=== PATIENT | female | born 1940 | race Caucasian/White ===

== ENCOUNTER 2017-05-25 05:53 | Inpatient (IN) | payer MEDICARE, BC ==
--- NOTE | 2017-05-24 09:42 | HP ---
HISTORY OF PRESENT ILLNESS: Ms. Coburn is a 76-year-old female that presents with right buttock mirian n and numbness and tingling that shoots down the right S1 dermatome. She has had this pain for about the past 2 months and has not found anything that gives her relief. Walking and standing makes the pain worse. She has had a right L5-S1 TFESI from Dr. Milton recently that gave no relief. She is also undergoing home health, PT and has had treatments with her chiropractor that has not helped. She has had a history of T10 vertebroplasty with Dr. Milton several years ago. IMAGING: MRI of the lumbar spine at [facility]. REVIEW OF SYSTEMS: Ten-point review of systems completed, is otherwise negative unless stated in the above HPI. PAST MEDICAL HISTORY: Blood clots, heart stent, hysterectomy, carpal tunnel, spleen and gallbladder removal, hypertension, high blood pressure. PAST SURGICAL HISTORY: Hysterectomy, IVC filter in 2015, heart stent. 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 Mother is deceas ed, diagnosed with diabetes, hypertension and heart disease. SOCIAL HISTORY: The patient is a nonsmoker. She does not use alcohol. MEDICATIONS: 1. Metformin 500 mg 1 tablet by mouth 2 times a day. 2. Oxybutynin chloride 5 mg tablet 1 tablet orally twice daily. 3. DuoNeb. 4. Albuterol sulfate HFA 108 mcg/ST aerosol solution 2 puffs as needed inhalation every 4 hours. 5. Klor-Con 10 mEq tablet extended release 1 tablet with food orally twice a day. 6. Lisinopril/hydrochlorothiazide 20/25 mg tablet, take 1 tablet by mouth every day. 7. Hydralazine HCL 25 mg tablet 1 tablet orally once a day. 8. Paxil 20 mg tablet 1 tablet in the morning orally once daily. 9. Restoril 15 mg tablet 1 capsule at bedtime as needed orally once a day. 10. Naproxen 375 mcg tablet 1 tablet orally twice a day p.r.n. 11. Pantoprazole sodium 40 mg tablet delayed release, take 1 tablet by mouth daily. 12. Gabapentin 300 mg capsule 1-2 capsules orally 3 times a day. 13. Prednisone 10 mg capsule 1 capsule orally 1 p.o. q.i.d. for 3 days and then taper over the next 3 days. 14. Zanaflex 4 mg tablet 1 tablet as needed orally 3 times a day p.r.n. for pain. 15. Pramipexole dihydrochloride 0.75 mg tablet 1 tablet before bedtime orally twice a day. 16. [place] 10/325 mg tablet 1 tablet as needed orally q.6 hours as needed for pain. ALLERGIES: BACTRIM causes anaphylaxis allergy. PHYSICAL EXAMINATION: HEENT: Normocephalic, atraumatic. Hearing intact. Moist mucous membranes. Trachea is midline. EYES: Pupils equal and reactive to light. Extraocular muscles are intact. Sclerae is white, nonict connie. PSYCHIATRIC: Normal mood and affect. CARDIAC/CARDIOPULMONARY: No cyanosis or clubbing noted. Intact pedal pulses bilaterally. MUSCULOSKELETAL: Lower extremity, 4/5 strength in bilateral right hamstrings, sensory deficits in th e right S1 dermatome tender to palpation in the right low back and buttocks, positive straight leg ra ise on the right. RESPIRATORY: Even respirations, good effort all lung morgan are clear with no wheezing or crackles. NEUROLOGIC: Cranial nerves II-XII grossly intact. Speech is fluent. She answers my questions appro priately. Antalgic gait and station, walks with a walker because of pain. ASSESSMENT: Radiculopathy lumbosacral region. PLAN: Dr. Childs offered removal of the right L5-S1 synovial cyst that is compressing on the righ t S1 nerve root. We discussed risks, benefits and possible complications of surgery. She fully unde rstands the risks and is willing to proceed with the surgery.
[2017-05-24 09:44] VITALS: BMI 32.9
[2017-05-25] MEDS ORDERED: Sodium Chloride 0.9% 10 ML ONE (06:35)
[2017-05-25] MEDS ORDERED: Bupivacaine 0.5% 10 ML VIAL ONE (06:35)
[2017-05-25] MEDS ORDERED: Thrombin 5000 UNITS/5 ML VIAL ONE (06:35)
[2017-05-25 06:38] LABS: Hemoglobin 11.3 g/dL (12.0-16.0); Mean Corpuscular HGB CONC 31.5 g/dL (32.0-36.0); Mean Corpuscular Hemoglobin 29.4 pg (27.0-31.0); Mean Corpuscular Volume 93.3 fl (81.0-99.0); Platelet Count 497 thou/uL (130-400); RBC Distribution Width 15.7 % (11.5-14.5); Red Blood Cell (RBC) Count 3.86 mill/uL (4.20-5.40); White Blood Cell (WBC) Count 15.9 thou/uL (4.8-10.8)
[2017-05-25 06:42] LABS: Prothrombin Time 12.8 SEC (12.0-14.7)
[2017-05-25] MEDS ORDERED: CEFAZOLIN/Water 2 GM/20 ML SYRINGE ONE (06:43)
[2017-05-25] MEDS ORDERED: Fentanyl 100 MCG/2 ML VIAL ONE ×3 (06:49→10:13)
[2017-05-25 06:52] LABS: Eosinophils 2 % (0-10); Lymphocytes 49 % (21-51); MDiff Complete? YES; Monocytes 10 % (0-10); Neutrophil 38 % (42-75); PLT Morphology Comment Appears Increased
[2017-05-25 06:58] LABS: Anion Gap 16 mmol/L (10-20); BUN (Urea Nitrogen) 36 mg/dL (9.8-20.1); Calc. Creatinine Clearance 43 mL/min (70-130); Calcium 10.2 mg/dL (7.8-10.44); Carbon Dioxide 26 mmol/L (23-31); Chloride 105 mmol/L (98-107); Estimated GFR-MDRD 36; Glucose 99 mg/dL (83-110); Potassium 3.7 mmol/L (3.5-5.1); Sodium 143 mmol/L (136-145)
--- NOTE | 2017-05-25 10:19 | OP ---
DATE OF PROCEDURE: 05/25/2017 SURGEON: Marc Childs SERVICE DELIVERY MANAGER: Wilber Huffman PA-C. PREOPERATIVE INDICATION: Treat pain, prevent neurological deterioration. PREOPERATIVE DIAGNOSIS: Right-sided L5-S1 synovial cyst with S1 radiculopathy. POSTOPERATIVE DIAGNOSIS: Right-sided L5-S1 synovial cyst with S1 radiculopathy. OPERATIVE PROCEDURE: Laminectomy, medial facetectomy, foraminotomy L5-S1, microsurgical resection of synovial cyst. PREOPERATIVE MEDICATION: Ancef 2 grams IV. DRAIN NUMBER: Zero. DRAIN TYPE: None. OPERATIVE DICTATION: The patient was brought to the operating room. General endotracheal anesthesia was induced. The patient was positioned prone on the operating table with her chest and hips suppor fish by gel-filled chest rolls. A lateral fluoro radiograph was used to plan our incision. The lumba r skin was sterilely prepped and draped. We opened our planned incision with a 10 blade knife and co ntrolled bleeding with bipolar and monopolar cautery. We used monopolar cautery to dissect through t he subcutaneous tissues to the thoracodorsal fascia. We incised the fascia in the midline and reflec fish the paraspinal muscles off the spinous process and lamina of L5 and S1. A self-retaining retract or was placed and a lateral fluoro radiograph confirmed the level upon, which we were operating. We then used Adson rongeurs to remove the spinous process of L5 and S1 and [place]ison rongeurs to fashion laminectomy, we widened our laminectomy defect until we were flushed with the pedicles. We performed S1 laminectomy until we were inferior to the synovial cyst, which we could see in the epidural space . We continued right-sided laminectomy of L5 until we were superior to it. We brought the operating microscope into the field. Under microscopic magnification using microsurgical techniques, we carefully dissected around the syn ovial cyst. We carefully from the dura and we left the dura intact and the removal of the cyst decompressed the S1 nerve root quite nicely. We irrigated copiously with bacitracin irrigation. The synovial cyst was sent to pathology. We infused local anesthetic in the paraspinal muscles and we closed the wound in anatomic layers. We applied a sterile dressing. This was a clean case and n o contamination.
[2017-05-25] MEDS ORDERED: Cyclobenzaprine 10 MG TAB ONE (11:15)
[2017-05-25] MEDS ORDERED: Acetaminophen/Codeine 30-300mg Tablet ONE (12:48)
[2017-05-25] MEDS ORDERED: HYDROcodone/Acetaminophen 5/325 mg Tablet PO PRN (15:58)
[2017-05-25] MEDS ORDERED: Ondansetron ODT 4 MG TAB PO PRN (16:03)
[2017-05-25] MEDS ORDERED: Acetaminophen/Codeine 30-300mg Tablet PO PRN ×2 (16:03→16:04)
[2017-05-25] MEDS ORDERED: Cyclobenzaprine 10 MG TAB PO PRN (16:04)
[2017-05-25] MEDS ORDERED: Morphine 5 MG/ML SYRINGE SLOW IVP PRN (16:04)
[2017-05-25] MEDS ORDERED: Glycopyrrolate 0.2 MG/ML 5 ML SYRINGE ONE (16:36)
[2017-05-25] MEDS ORDERED: Dexamethasone 20 MG/5 ML VIAL ONE (16:36)
[2017-05-25] MEDS ORDERED: Lidocaine 1% PF 5 ML VIAL ONE (16:36)
[2017-05-25] MEDS ORDERED: Ondansetron HCl/PF 4 MG/2 ML Vial ONE (16:36)
[2017-05-25] MEDS ORDERED: PHENYLEPHRINE-NS 100 MCG/ML 10 ML SYRINGE ONE (16:36)
[2017-05-25] MEDS ORDERED: ePHEDrine/0.9% NaCl/PF SYRINGE 50 mg/10 ml ONE (16:36)
[2017-05-25] MEDS ORDERED: PROPOFOL 200 MG/20 ML VIAL ONE (16:36)
[2017-05-25] MEDS: metFORMIN 500 MG TAB PO SCH (17:11)
[2017-05-25] MEDS ORDERED: Temazepam 15 MG CAP PO SCH (21:00)
[2017-05-25] MEDS: Pramipexole Di-HCl 0.25 MG TAB PO SCH (21:02)
[2017-05-25] MEDS: hydrALAZINE 25 MG TAB PO SCH (21:02)
[2017-05-25] MEDS ORDERED: Morphine 4 MG/ML Carpuject SLOW IVP PRN (21:25)
[2017-05-26] MEDS ORDERED: predniSONE 20 MG TAB PO SCH (09:00)
[2017-05-26] MEDS ORDERED: Lisinopril 20 MG TAB PO SCH (09:00)
[2017-05-26] MEDS ORDERED: tiZANidine HCl 4 MG TAB PO SCH (09:00)
[2017-05-26] MEDS: Pramipexole Di-HCl 0.25 MG TAB PO SCH (09:29)
[2017-05-26] MEDS: hydrALAZINE 25 MG TAB PO SCH (09:30)
[2017-05-26] MEDS: metFORMIN 500 MG TAB PO SCH (09:30)
--- NOTE | 2017-05-26 11:21 | DIS ---
Ms. Coburn is a 76-year-old woman who was admitted to [facility] on 05/25/[address] Aileen Childs in the postoperative period following a lumbar laminectomy and synovial cystectomy, and e was discharged with a subsequent on 05/26/2017. Hospital course was uncomplicated. There were no consultations ordered and pain was well controlled with typical measures. She was ultimately dischar [facility] in good condition with outpatient followup anticipated in 2 weeks.
[2017-05-26 13:21] VITALS: BP 118/62; TEMP 97.4
--- NOTE | 2017-07-29 08:32 | EKG ---
Test Reason : PREOP Blood Pressure : / mmHG Vent. Rate : 079 BPM Atrial Rate : 079 BPM P-R Int : 170 ms QRS Dur : 094 ms QT Int : 396 ms P-R-T Axes : 038 -62 058 degrees QTc Int : 454 ms Normal sinus rhythm Left anterior fascicular block Possible Lateral infarct , age undetermined Abnormal ECG Confirmed by VANIA LOWE MD ([id number]) on 07/29/2017 8:31:42 AM Referred By: ANTHONY Confirmed By:VANIA LOWE MD
== END 2017-05-26 16:00 | disposition home health service (06) | DRG 520 ==
LOC: SURG A 05:53 → SURG B 14:51
PROVIDERS: ADMIT Neurological Surgery; ATTEND Neurological Surgery
PROC: 0QB00ZZ Excision of Lumbar Vertebra, Open Approach (ICD-10-PCS; principal; 2017-05-25)
PROC: 00BY0ZZ Excision of Lumbar Spinal Cord, Open Approach (ICD-10-PCS; 2017-05-25)
DX: M71.38 Other bursal cyst, other site (principal); I10 Essential (primary) hypertension; Z95.5 Presence of coronary angioplasty implant and graft; Z95.828 Presence of other vascular implants and grafts; Z79.84 Long term (current) use of oral hypoglycemic drugs; Z79.891 Long term (current) use of opiate analgesic; Z88.2 Allergy status to sulfonamides; M54.17 Radiculopathy, lumbosacral region; Z86.718 Personal history of other venous thrombosis and embolism
CPT/HCPCS: 36415; 76001; 80048; 85025; 85610; 85730; 88304; 88311; 93005; 93010; 96374; J2270; A4216; J1100; J2001; J2405; J2704; J2710; J3010; J3370; J3490; J7506

== ENCOUNTER 2017-09-10 13:20 | Outpatient (CLI) | payer MEDICARE, BC ==
[2017-09-10 15:30] LABS: Hemoglobin 12.8 g/dL (12.0-16.0); Mean Corpuscular HGB CONC 32.7 g/dL (32.0-36.0); Mean Corpuscular Hemoglobin 29.1 pg (27.0-31.0); Mean Corpuscular Volume 89.1 fl (81.0-99.0); Mean Platelet Volume 8.7 fL (7.4-10.4); Platelet Count 517 thou/uL (130-400); Red Blood Cell (RBC) Count 4.41 mill/uL (4.20-5.40); White Blood Cell (WBC) Count 12.6 thou/uL (4.8-10.8)
[2017-09-10 15:36] LABS: INR-International Normal Ratio 1.1; PTT 33.4 SEC (22.9-36.1); Prothrombin Time 14.3 SEC (12.0-14.7)
[2017-09-10 15:52] LABS: Anion Gap 18 mmol/L (10-20); BUN (Urea Nitrogen) 32 mg/dL (9.8-20.1); Calc. Creatinine Clearance 0 mL/min (70-130); Carbon Dioxide 25 mmol/L (23-31); Chloride 97 mmol/L (98-107); Estimated GFR-MDRD 20; Glucose 108 mg/dL (83-110); Potassium 3.7 mmol/L (3.5-5.1); Sodium 136 mmol/L (136-145)
[2017-09-10 15:55] LABS: Calcium 12.6 mg/dL (7.8-10.44)
[2017-09-10 16:18] LABS: Anisocytosis SLIGHT = 6-15 cells (100X) (0-5/hpf); Band 2 % (5-11); Eosinophils 1 % (0-10); Giant Platelets SLIGHT; Large Platelets SLIGHT; Lymphocytes 32 % (21-51); MDiff Complete? YES; Monocytes 4 % (0-10); Neutrophil 57 % (42-75); PLT Morphology Comment Appears Increased; Target Cells SLIGHT = 2-5 cells (100X) (0-1/hpf)
--- NOTE | 2017-09-10 16:38 | RAD ---
CHEST TWO VIEWS: 09/10/2017 HISTORY: Preoperative chest radiograph. COMPARISON: 05/11/2014 TECHNIQUE: PA and lateral views of the chest are obtained. FINDINGS: Two views of the chest demonstrate a right shoulder arthroplasty. Mid and lower thoracic vertebropla sty are seen. There is an inferior vena cava filter in place. No evidence of acute intrathoracic abnormalities seen. Osteoporosis of the thoracic spine is also se en. 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 No evidence of acute intrathoracic abnormal ity is seen. POS: [facility]
[2017-09-10 16:51] LABS: Bilirubin Negative (Negative); Blood, Urine Negative (Negative); Clarity CLEAR (Clear); Glucose, Urine (Dipstick) Negative (Negative); Leukocyte Small (Negative); Nitrite Negative (Negative); Protein, Urine (Dipstick) Trace mg/dL (Neg-Trace); Specific Gravity, Urine 1.013 (1.002-1.036); Urobilinogen 0.2 mg/dL (0.2-1.0)
[2017-09-10 16:53] LABS: Bacteria/HPF None Seen HPF (None Seen); Hyaline Casts/LPF 0-3 HYALINE CAST LPF (0-3 Hyaline); Pathc Cast-AUWi Flag 0.29 (0-2.49); RBC/HPF 0-3 HPF (0-3); Squamous Epithelial 0-3 HPF (0-3)
== END 2017-09-10 13:21 | disposition home or self-care (01) ==
LOC: LABBT 13:20
PROVIDERS: ATTEND Orthopaedic Surgery
DX: Z01.818 Encounter for other preprocedural examination (principal); M12.812 Other specific arthropathies, not elsewhere classified, left shoulder
CPT/HCPCS: 71046; 80048; 81001; 85025; 85610; 85730; 86850; 86900; 86901; 87081; 93005; 93010

== ENCOUNTER 2017-09-10 13:30 | Inpatient (IN) | payer MEDICARE, BC ==
[2017-09-13] MEDS ORDERED: Fentanyl 100 MCG/2 ML VIAL ONE ×2 (07:42→11:12)
[2017-09-13] MEDS ORDERED: Midazolam HCl 2 mg/2 ml Vial ONE (07:42)
[2017-09-13] MEDS ORDERED: CEFAZOLIN/Water 2 GM/20 ML SYRINGE ONE (07:47)
[2017-09-13] MEDS ORDERED: Sodium Chloride 0.9% 100 ML ONE (07:47)
[2017-09-13] MEDS ORDERED: Ondansetron HCl/PF 4 MG/2 ML Vial IVP PRN ×2 (08:27→10:58)
[2017-09-13] MEDS ORDERED: traMADol HCl 50 MG TAB PO PRN ×3 (08:27→08:55)
[2017-09-13] MEDS ORDERED: Ropivacaine 0.2% 550 ML 550 ML NERVE BLCK SCH (08:27)
[2017-09-13] MEDS ORDERED: Zolpidem Tartrate 5 MG TAB PO PRN (08:27)
[2017-09-13] MEDS ORDERED: Promethazine HCl 25 MG/ML VIAL IM PRN ×2 (08:27→10:58)
[2017-09-13] MEDS ORDERED: HYDROcodone/Acetaminophen 5/325 mg Tablet PO PRN (08:27)
[2017-09-13] MEDS ORDERED: Fentanyl 100 MCG/2 ML VIAL IV PRN (08:28)
[2017-09-13] MEDS ORDERED: HYDROcodone/Acetaminophen 10/325 mg Tablet PO PRN ×2 (08:55)
[2017-09-13] MEDS ORDERED: Cyclobenzaprine 10 MG TAB PO PRN (08:57)
[2017-09-13] MEDS ORDERED: Promethazine HCl 25 MG/ML VIAL SLOW IVP PRN (10:58)
[2017-09-13] MEDS ORDERED: Ondansetron HCl/PF 4 MG/2 ML Vial ONE ×2 (11:12→15:05)
[2017-09-13] MEDS ORDERED: Promethazine HCl 25 MG/ML VIAL ONE (11:13)
--- NOTE | 2017-09-13 11:41 | RAD ---
LEFT SHOULDER 2 VIEWS: Date: 09/13/17 HISTORY: Reverse total shoulder arthroplasty. COMPARISON: None. FINDINGS: Satisfactory appearance of left reverse total shoulder arthroplasty. Expected postoperative gas and e boogie. There are some congestive changes in the lung bases. IMPRESSION: Satisfactory appearance of left reverse total shoulder arthroplasty. POS: [facility]
--- NOTE | 2017-09-13 11:44 | OP ---
PREOPERATIVE DIAGNOSIS: Degenerative arthritis, presumed rotator cuff tear of left shoulder with bic eps tendonitis. POSTOPERATIVE DIAGNOSES: Degenerative arthritis, presumed rotator cuff tear of left shoulder with bi ceps tendonitis with partial rotator cuff tear and attenuation of the rotator cuff, biceps tendonitis . PROCEDURE: Left reverse total shoulder arthroplasty and biceps tenodesis using a 25 mm baseplate wit h a 36 mm sphere, 4B long Flex stem, +6 low offset tray and 6 mm poly. RN ANESTHETIST: Rowdy Cantu PA-C BLOOD LOSS: 100 mL. SPECIMEN: None. DRAINS: None. COMPLICATIONS: None. NARRATIVE REPORT: After appropriate consent was obtained, the patient was placed in the beach chair position with a roll under the left shoulder. The left shoulder was prepped and draped in the usual sterile fashion. I made a standard deltopectoral approach. Cephalic vein was taken medially and pre served, branches were coagulated. The deltopectoral interval was opened. The biceps tendon was iden tified. The tendon was frayed and in poor condition. I removed the biceps from the groove and tagge d it for later repair. It was eventually tagged to soft tissues using #5 Ethibond suture. The subsc apularis was taken down. Bone spurs were removed. Subscapularis was tacked for later repair. Using the Tornier guide, a standard cut was performed. I then exposed the glenoid circumferentially. I d rilled a central hole and reamed the glenoid. The glenoid baseplate was deployed without difficulty and screws were inserted in the usual technique. Glenosphere was docked without difficulty after irr igation. Attention was turned to the humerus, which was opened with an acetabular and a shaft reamer to the appropriate size. Trial implant was placed and a trial reduction was performed. Trials were removed and irrigation performed. I placed drill holes through the lesser tuberosity to repair the subscapularis. Permanent implant was impacted into place. The shoulder was reduced and confirmed to have good stability throughout a range of motion. Subscapularis was tacked down with a cottony Dacr on suture. Additional irrigation was performed. The deltopectoral interval was repaired with #2-0 V icryl and subcutaneous tissue closed with 2-0 Vicryl. The skin was closed with ronaldo and a sterile dressing was applied. IMPLANTS USED: Tornier 12 mm stem with a 9 mm polyethylene bushing and a standard baseplate and 36 g lenosphere.
[2017-09-13] MEDS: Dextrose 5 %-0.45 % NaCl 1,000 ML IV SCH (13:13)
[2017-09-13] MEDS: Clindamycin/D5W 900 MG in Premix Bag 1 BAG IVPB SCH ×2 (13:13→16:57)
[2017-09-13] MEDS ORDERED: Ropivacaine 0.5% HCl/PF (150 MG/30 ML VIAL) ONE (14:18)
[2017-09-13] MEDS ORDERED: Ropivacaine 0.2% HCl/PF (40 MG/20 ML VIAL) ONE (14:18)
[2017-09-13 14:33] VITALS: BMI 28.5
[2017-09-13] MEDS ORDERED: Glycopyrrolate 0.2 MG/ML 5 ML SYRINGE ONE (15:05)
[2017-09-13] MEDS ORDERED: Lidocaine 1% PF 5 ML VIAL ONE (15:05)
[2017-09-13] MEDS ORDERED: PHENYLEPHRINE-NS 100 MCG/ML 10 ML SYRINGE ONE (15:05)
[2017-09-13] MEDS ORDERED: ePHEDrine/0.9% NaCl/PF SYRINGE 50 mg/10 ml ONE (15:05)
[2017-09-13] MEDS ORDERED: PROPOFOL 200 MG/20 ML VIAL ONE (15:05)
--- NOTE | 2017-09-13 16:21 | PDOC.PN ---
- Subjective Encounter Start Date: 09/13/17 Encounter Start Time: 16:00 Subjective: no c/o sob or palp -: left UE is still numb - Objective MAR Reviewed: Yes Vital Signs & Weight: Vital Signs (12 hours) Pulse BP Pulse Ox 09/13/17 14:48 74 116/62 86 L Weight Weight 156 lb 4.8 oz Phys Exam - Physical Examination HEENT: PERRLA, moist MMs Neck: no JVD, supple Respiratory: no wheezing, no rales Cardiovascular: RRR, no significant murmur Gastrointestinal: soft, non-tender, positive bowel sounds Musculoskeletal: no edema, pulses present Neurological: non-focal, moves all 4 limbs Psychiatric: A&O x 3 Dx/Plan (1) Anxiety and depression Code(s): F41.9 - ANXIETY DISORDER, UNSPECIFIED; F32.9 - MAJOR DEPRESSIVE DISORDER, SINGLE EPISODE, UNSPECIFIED Status: Chronic (2) Diabetes type 2, controlled Code(s): E11.9 - TYPE 2 DIABETES MELLITUS WITHOUT COMPLICATIONS Status: Chronic Qualifiers: 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 use: without detention use Diabetes mellitus complication status: with unspecified complications Qualified Code(s) : E11.8 - Type 2 diabetes mellitus with unspecified complications Comment: ISS for reflexive coverage, hold Metformin due to JOSE ALFREDO (3) Dyslipidemia Code(s): E78.5 - HYPERLIPIDEMIA, UNSPECIFIED Status: Chronic (4) Hypertension Code(s): I10 - ESSENTIAL (PRIMARY) HYPERTENSION Status: Chronic Qualifiers: Hypertension type: essential hypertension Qualified Code(s): I10 - Essential (primary) hypertension (5) Sarcoidosis Code(s): D86.9 - SARCOIDOSIS, UNSPECIFIED Status: Chronic - Plan cxr today, spo2 around 80-96% over left UE finger, likely not accurate -: continue lisinopril, hydralazine and metformin with coverage mild humalog -: nebs prn, nasal canula 2 liter prn -: i.spirometer -: will f/u * . Review of Systems - Medications/Allergies Allergies/Adverse Reactions: Allergies Allergy/AdvReac Type Severity Reaction Status Date / Time Sulfa (Sulfonamide Allergy Verified 05/29/16 02:42 Antibiotics) sulfamethoxazole Allergy Verified 05/29/16 02:42 [From Bactrim] trimethoprim [From Bactrim] Allergy Verified 02/20/17 02:42 Medications: Current Medications Hydrocodone Bitart/Acetaminophen ([place] 5/325) 1 tab PO Q4H PRN PRN Reason: Mild Pain (1-3) Hydrocodone Bitart/Acetaminophen ([place] 5/325) 2 tab PO Q4H PRN PRN Reason: For Moderate Pain 4-6 Cyclobenzaprine HCl (Flexeril) 10 mg PO Q8HR PRN PRN Reason: spasms Fentanyl (Sublimaze) 50 mcg IV Q1H PRN PRN Reason: BREAKTHROUGH PAIN Hydralazine HCl (Apresoline) 25 mg PO BID [facility] Ropivacaine (Ropivacaine 0.2% 550 Ml) 550 mls @ 0 mls/hr NERVE BLCK INF DENY PRN Reason: As Directed Clindamycin Phosphate/Dextrose (900 mg/ Device) 50 mls @ 100 mls/hr IVPB Q6HR [facility] Stop: 09/13/17 18:29 Last Admin: 09/13/17 13:13 Dose: 50 mls Dextrose/Sodium Chloride (D5 1/2 Ns) 1,000 mls @ 65 mls/hr IV .[id number] [facility] Last Admin: 09/13/17 13:13 Dose: 1,000 mls Vancomycin HCl 1 gm/ Device 200 mls @ 200 mls/hr IVPB 2000 [facility] Stop: 09/13/17 20:59 Lisinopril (Zestril) 25 mg PO QAM [facility] Lisinopril (Zestril) 25 mg PO NOW [facility] Stop: 09/13/17 18:30 Meloxicam (Mobic) 15 mg PO DAILY [facility] Meloxicam (Mobic) 15 mg PO NOW [facility] Stop: 09/13/17 18:30 Metformin HCl (Glucophage) 500 mg PO BID[facility] Ondansetron HCl (Zofran) 4 mg IVP Q6H PRN PRN Reason: Nausea/Vomiting Pantoprazole Sodium (Protonix) 40 mg PO QAM [facility] Pantoprazole Sodium (Protonix) 40 mg PO NOW [facility] Stop: 09/13/17 18:30 Paroxetine HCl (Paxil Cr) 25 mg PO QPM [facility] Pramipexole Dihydrochloride (Mirapex) 0.75 mg PO DAILY [facility] Pramipexole Dihydrochloride (Mirapex) 0.75 mg PO NOW [facility] Stop: 09/13/17 18:30 Promethazine HCl (Phenergan) 12.5 mg IM Q4H PRN PRN Reason: Nausea Sodium Chloride (Flush - Normal Saline) 10 ml IVF Q12HR DENY Sodium Chloride (Flush - Normal Saline) 10 ml IVF PRN PRN PRN Reason: Saline Flush Temazepam (Restoril) 15 mg PO HS DENY Tramadol HCl (Ultram) 50 mg PO Q6H PRN PRN Reason: Mild Pain (1-3) Tramadol HCl (Ultram) 100 mg PO Q6H PRN PRN Reason: Moderate Pain (4-6) Zolpidem Tartrate (Ambien) 5 mg PO HSPRN PRN PRN Reason: Insomnia
[2017-09-13] MEDS ORDERED: Lisinopril 20 MG TAB PO SCH (16:30)
[2017-09-13] MEDS ORDERED: Meloxicam 15 MG TAB PO SCH (16:30)
[2017-09-13] MEDS ORDERED: Pramipexole Di-HCl 0.25 MG TAB PO SCH (16:30)
[2017-09-13] MEDS: metFORMIN 500 MG TAB PO SCH (16:56)
[2017-09-13] MEDS: Pramipexole Di-HCl 0.25 MG TAB PO SCH (16:57)
[2017-09-13] MEDS: Meloxicam 15 MG TAB PO SCH (16:58)
[2017-09-13] MEDS: Lisinopril 20 MG TAB PO SCH (16:58)
[2017-09-13] MEDS: hydrALAZINE 25 MG TAB PO SCH ×2 (16:58→20:04)
--- NOTE | 2017-09-13 18:37 | RAD ---
ONE VIEW CHEST 09/13/17 HISTORY: Hypoxia. Sarcoidosis. COMPARISON: 06/02/16 FINDINGS: There are surgical clips projecting over the proximal left humerus. Correlate for recent arthroplasty . Enlarged cardiac silhouette. Pulmonary vessels are normal. Persistent fullness in the right hilum. Sm all left sided pleural effusion with adjacent parenchymal change which may represent atelectasis or i nfiltrate. No pneumothorax. There is evidence of previous vertebroplasty change in the thoracic spine . IMPRESSION: 1. Left lower lobe pleural effusion with possible atelectasis or infiltrate. 2. Persistent fullness of the right hilum. 3. Recent left hemiarthroplasty change. POS: [facility]
[2017-09-13] MEDS ORDERED: Vancomycin HCl 1 GM in Premix Bag 1 BAG IVPB SCH (20:00)
[2017-09-13] MEDS: Temazepam 15 MG CAP PO SCH (20:01)
[2017-09-13] MEDS: traMADol HCl 50 MG TAB PO PRN (20:01)
[2017-09-14] MEDS: HYDROcodone/Acetaminophen 5/325 mg Tablet PO PRN ×4 (00:57→17:44)
[2017-09-14] MEDS: Dextrose 5 %-0.45 % NaCl 1,000 ML IV SCH ×2 (03:09→16:53)
[2017-09-14] MEDS: traMADol HCl 50 MG TAB PO PRN ×2 (03:13→08:49)
[2017-09-14 07:47] LABS: Hemoglobin 9.8 g/dL (12.0-16.0); Mean Corpuscular HGB CONC 33.2 g/dL (32.0-36.0); Mean Corpuscular Hemoglobin 29.4 pg (27.0-31.0); Mean Corpuscular Volume 88.6 fl (81.0-99.0); Mean Platelet Volume 7.8 fL (7.4-10.4); Platelet Count 403 thou/uL (130-400); RBC Distribution Width 14.8 % (11.5-14.5); Red Blood Cell (RBC) Count 3.34 mill/uL (4.20-5.40)
[2017-09-14 08:12] LABS: ALT (SGPT) Less than 7 U/L (8-55); AST (SGOT) 14 U/L (5-34); Albumin 3.2 g/dL (3.4-4.8); Alkaline Phosphatase 78 U/L (40-150); Anion Gap 11 mmol/L (10-20); BUN (Urea Nitrogen) 27 mg/dL (9.8-20.1); Bilirubin, Total 0.5 mg/dL (0.2-1.2); Calc. Creatinine Clearance 28 mL/min (70-130); Calcium 10.2 mg/dL (7.8-10.44); Carbon Dioxide 26 mmol/L (23-31); Chloride 101 mmol/L (98-107); Estimated GFR-MDRD 26; Globulin 2.9 g/dL (2.4-3.5); Glucose 111 mg/dL (83-110); Potassium 3.4 mmol/L (3.5-5.1); Protein, Total 6.1 g/dL (6.0-8.3); Sodium 135 mmol/L (136-145)
[2017-09-14] MEDS: Meloxicam 15 MG TAB PO SCH (08:47)
[2017-09-14] MEDS: Lisinopril 20 MG TAB PO SCH (08:48)
[2017-09-14] MEDS: Pramipexole Di-HCl 0.25 MG TAB PO SCH (08:48)
[2017-09-14] MEDS: metFORMIN 500 MG TAB PO SCH ×2 (08:48→17:44)
[2017-09-14] MEDS: hydrALAZINE 25 MG TAB PO SCH ×2 (08:49→21:22)
[2017-09-14 08:55] LABS: Band 1 % (5-11); Eosinophils 5 % (0-10); Hypochromia SLIGHT = 6-15 cells (100X) (0-5/hpf); Lymphocytes 19 % (21-51); MDiff Complete? YES; Monocytes 13 % (0-10); Neutrophil 51 % (42-75); PLT Morphology Comment Appears Increased; Polychromasia SLIGHT = 2-3 cells (100X) (0-2/hpf); Reactive Lymphocytes 11 % (0-10)
--- NOTE | 2017-09-14 10:47 | PDOC.PN ---
- Subjective Encounter Start Date: 09/14/17 Encounter Start Time: 07:15 Subjective: mild pain at operated site -: no chest pain, cough or sob - Objective MAR Reviewed: Yes Vital Signs & Weight: Vital Signs (12 hours) Temp Pulse Resp BP BP Pulse Ox 09/14/17 08:49 90 111/65 09/14/17 08:48 111/65 09/14/17 08:40 98.3 F 90 14 94 L 09/14/17 08:00 98.3 F 90 14 111/65 94 L 09/14/17 06:35 92 16 96 09/14/17 03:31 98.2 F 92 20 120/51 L 96 09/13/17 23:10 97.9 F 86 17 128/70 92 L Weight Weight 156 lb 4.8 oz I&O: 09/13/17 09/14/17 09/15/17 06:59 06:59 06:59 Intake Total 920 Balance 920 Result Diagrams: 09/14/17 07:18 09/14/17 07:18 Phys Exam - Physical Examination HEENT: PERRLA, sclera anicteric dry mucosa Neck: no JVD, supple Respiratory: no wheezing, no rales Cardiovascular: RRR, no significant murmur Gastrointestinal: soft, non-tender, positive bowel sounds Musculoskeletal: no edema, pulses present left shoulder in dressing Neurological: non-focal, moves all 4 limbs Psychiatric: A&O x 3 Dx/Plan (1) Diabetes type 2, controlled Code(s): E11.9 - TYPE 2 DIABETES MELLITUS WITHOUT COMPLICATIONS Status: Chronic Qualifiers: 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: without residential use Diabetes mellitus complication status: with unspecified complications Qualified Code(s) : E11.8 - Type 2 diabetes mellitus with unspecified complications (2) Anxiety and depression Code(s): F41.9 - ANXIETY DISORDER, UNSPECIFIED; F32.9 - MAJOR DEPRESSIVE DISORDER, SINGLE EPISODE, UNSPECIFIED Status: Chronic (3) Dyslipidemia Code(s): E78.5 - HYPERLIPIDEMIA, UNSPECIFIED Status: Chronic (4) Hypertension Code(s): I10 - ESSENTIAL (PRIMARY) HYPERTENSION Status: Chronic Qualifiers: Hypertension type: essential hypertension Qualified Code(s): I10 - Essential (primary) hypertension (5) Sarcoidosis Code(s): D86.9 - SARCOIDOSIS, UNSPECIFIED Status: Chronic (6) CKD (chronic kidney disease) stage 3, GFR 30-59 ml/min Code(s): N18.3 - CHRONIC KIDNEY DISEASE, STAGE 3 (MODERATE) Status: Chronic - Plan encourage po intake plus iv hydration x 24hrs -: to amb as tolerated -: hold lisinopril for now, continue metformin -: nebs, fentanyl, norco prn, ropivacaine nerve block -: will f/u, wbc is 16 likely margination, watch for renal function * . Review of Systems - Medications/Allergies Allergies/Adverse Reactions: Allergies Allergy/AdvReac Type Severity Reaction Status Date / Time Sulfa (Sulfonamide Allergy Verified 05/29/16 02:42 Antibiotics) sulfamethoxazole Allergy Verified 05/29/16 02:42 [From Bactrim] trimethoprim [From Bactrim] Allergy Verified 05/29/16 02:42 Medications: Current Medications Hydrocodone Bitart/Acetaminophen ([place] 5/325) 1 tab PO Q4H PRN PRN Reason: Mild Pain (1-3) Last Admin: 09/13/17 16:55 Dose: 1 tab Hydrocodone Bitart/Acetaminophen ([place] 5/325) 2 tab PO Q4H PRN PRN Reason: For Moderate Pain 4-6 Last Admin: 09/14/17 05:28 Dose: 2 tab Albuterol/Ipratropium (Duoneb) 3 ml NEB [id number] [facility] Last Admin: 09/14/17 06:35 Dose: 3 ml Cyclobenzaprine HCl (Flexeril) 10 mg PO Q8HR PRN PRN Reason: spasms Fentanyl (Sublimaze) 50 mcg IV Q1H PRN PRN Reason: BREAKTHROUGH PAIN Hydralazine HCl (Apresoline) 25 mg PO BID [facility] Last Admin: 09/14/17 08:49 Dose: 25 mg Ropivacaine (Ropivacaine 0.2% 550 Ml) 550 mls @ 0 mls/hr NERVE BLCK INF DENY PRN Reason: As Directed Dextrose/Sodium Chloride (D5 1/2 Ns) 1,000 mls @ 65 mls/hr IV .[id number] [facility] Last Admin: 09/14/17 03:09 Dose: Not Given Metformin HCl (Glucophage) 500 mg PO BID[facility] Last Admin: 09/14/17 08:48 Dose: 500 mg Ondansetron HCl (Zofran) 4 mg IVP Q6H PRN PRN Reason: Nausea/Vomiting Pantoprazole Sodium (Protonix) 40 mg PO QAM [facility] Last Admin: 09/14/17 08:48 Dose: 40 mg Paroxetine HCl (Paxil Cr) 25 mg PO QPM [facility] Pramipexole Dihydrochloride (Mirapex) 0.75 mg PO DAILY [facility] Last Admin: 09/14/17 08:48 Dose: 0.75 mg Promethazine HCl (Phenergan) 12.5 mg IM Q4H PRN PRN Reason: Nausea Sodium Chloride (Flush - Normal Saline) 10 ml IVF Q12HR [facility] Last Admin: 09/14/17 08:53 Dose: Not Given Sodium Chloride (Flush - Normal Saline) 10 ml IVF PRN PRN PRN Reason: Saline Flush Temazepam (Restoril) 15 mg PO HS [facility] Last Admin: 09/13/17 20:01 Dose: 15 mg Tramadol HCl (Ultram) 50 mg PO Q6H PRN PRN Reason: Mild Pain (1-3) Tramadol HCl (Ultram) 100 mg PO Q6H PRN PRN Reason: Moderate Pain (4-6) Last Admin: 09/14/17 08:49 Dose: 100 mg Zolpidem Tartrate (Ambien) 5 mg PO HSPRN PRN PRN Reason: Insomnia Last Admin: 09/13/17 20:44 Dose: 5 mg
[2017-09-14] MEDS ORDERED: PARoxetine CR 12.5 MG TAB PO SCH (21:00)
[2017-09-14] MEDS: Temazepam 15 MG CAP PO SCH (21:22)
[2017-09-15] MEDS: HYDROcodone/Acetaminophen 5/325 mg Tablet PO PRN ×2 (03:50→10:08)
[2017-09-15] MEDS: Dextrose 5 %-0.45 % NaCl 1,000 ML IV SCH (06:20)
[2017-09-15 08:27] LABS: #Basophils 0.2 thou/uL (0.0-0.2); #Lymphocytes 4.2 thou/uL (1.20-3.40); #Monocytes 1.6 thou/uL (0.11-0.59); #Neutrophils 7.8 thou/uL (1.40-6.50); %Basophils 1.1 % (0.0-1.0); %Eosinophils 6.7 % (0.0-10.0); %Lymphocytes 28.6 % (21.0-51.0); %Monocytes 10.6 % (0.0-10.0); %Neutrophils 53.1 % (42.0-75.0); Hemoglobin 10.1 g/dL (12.0-16.0); Mean Corpuscular HGB CONC 33.3 g/dL (32.0-36.0); Mean Corpuscular Hemoglobin 29.9 pg (27.0-31.0); Mean Corpuscular Volume 89.7 fl (81.0-99.0); Mean Platelet Volume 7.9 fL (7.4-10.4); Platelet Count 403 thou/uL (130-400); Red Blood Cell (RBC) Count 3.37 mill/uL (4.20-5.40); White Blood Cell (WBC) Count 14.7 thou/uL (4.8-10.8)
[2017-09-15] MEDS: Pramipexole Di-HCl 0.25 MG TAB PO SCH (08:30)
[2017-09-15] MEDS: metFORMIN 500 MG TAB PO SCH (08:30)
[2017-09-15] MEDS: hydrALAZINE 25 MG TAB PO SCH (08:30)
[2017-09-15] MEDS: traMADol HCl 50 MG TAB PO PRN (08:31)
[2017-09-15 08:43] LABS: Anion Gap 12 mmol/L (10-20); BUN (Urea Nitrogen) 26 mg/dL (9.8-20.1); Calc. Creatinine Clearance 29 mL/min (70-130); Calcium 10.2 mg/dL (7.8-10.44); Carbon Dioxide 25 mmol/L (23-31); Chloride 102 mmol/L (98-107); Estimated GFR-MDRD 27; Glucose 92 mg/dL (83-110); Potassium 3.5 mmol/L (3.5-5.1); Sodium 135 mmol/L (136-145)
[2017-09-15] MEDS ORDERED: Aspirin 81 mg Enteric Coated Tablet PO SCH (09:00)
--- NOTE | 2017-09-15 10:53 | PDOC.PN ---
- Subjective Encounter Start Date: 09/15/17 Encounter Start Time: 08:00 Subjective: no sob, is amb in hallway -: left shoulder pain is better this am - Objective MAR Reviewed: Yes Vital Signs & Weight: Vital Signs (12 hours) Temp Pulse Resp BP Pulse Ox 09/15/17 08:30 85 09/15/17 07:48 98.2 F 85 20 134/76 94 L 09/15/17 06:59 82 16 93 L 09/15/17 04:00 98.3 F 84 18 129/64 92 L 09/15/17 00:54 87 16 91 L 09/15/17 00:00 98.2 F 93 16 142/83 H 94 L Weight Weight 156 lb 4.8 oz I&O: 09/14/17 09/15/17 09/16/17 06:59 06:59 06:59 Intake Total 920 1710 Output Total 750 Balance 920 960 Result Diagrams: 09/15/17 08:12 09/15/17 08:12 Additional Labs: Accuchecks 09/15/17 09/14/17 09/14/17 05:55 21:38 15:33 POC Glucose 94 87 108 09/14/17 12:11 POC Glucose 96 Phys Exam - Physical Examination HEENT: PERRLA, moist MMs Neck: no JVD, supple Respiratory: no wheezing, no rales Cardiovascular: RRR, no significant murmur Gastrointestinal: soft, non-tender, positive bowel sounds Musculoskeletal: no edema, pulses present Neurological: non-focal, moves all 4 limbs Psychiatric: A&O x 3 Dx/Plan (1) Diabetes type 2, controlled Code(s): E11.9 - TYPE 2 DIABETES MELLITUS WITHOUT COMPLICATIONS Status: Chronic Qualifiers: Diabetes mellitus ocean transportation intermediary insulin use: without ocean transportation intermediary use Diabetes mellitus complication status: with unspecified complications Qualified Code(s) : E11.8 - Type 2 diabetes mellitus with unspecified complications (2) Anxiety and depression Code(s): F41.9 - ANXIETY DISORDER, UNSPECIFIED; F32.9 - MAJOR DEPRESSIVE DISORDER, SINGLE EPISODE, UNSPECIFIED Status: Chronic (3) Dyslipidemia Code(s): E78.5 - HYPERLIPIDEMIA, UNSPECIFIED Status: Chronic (4) Hypertension Code(s): I10 - ESSENTIAL (PRIMARY) HYPERTENSION Status: Chronic Qualifiers: Hypertension type: essential hypertension Qualified Code(s): I10 - Essential (primary) hypertension (5) Sarcoidosis Code(s): D86.9 - SARCOIDOSIS, UNSPECIFIED Status: Chronic (6) CKD (chronic kidney disease) stage 3, GFR 30-59 ml/min Code(s): N18.3 - CHRONIC KIDNEY DISEASE, STAGE 3 (MODERATE) Status: Chronic - Plan still has ropivacaine block, fentanyl, ultram prn -: wbc is 14k, creatinine is trending down -: is being dc home, will need cbc to followed by ortho/pcp in 4 days -: encourage po fluid intake -: to continue home meds, needs close monitoring of her renal function * . Review of Systems - Medications/Allergies Allergies/Adverse Reactions: Allergies Allergy/AdvReac Type Severity Reaction Status Date / Time Sulfa (Sulfonamide Allergy Verified 05/29/16 02:42 Antibiotics) sulfamethoxazole Allergy Verified 05/29/16 02:42 [From Bactrim] trimethoprim [From Bactrim] Allergy Verified 05/29/16 02:42 Medications: Current Medications Hydrocodone Bitart/Acetaminophen ([place] 5/325) 1 tab PO Q4H PRN PRN Reason: Mild Pain (1-3) Last Admin: 09/13/17 16:55 Dose: 1 tab Hydrocodone Bitart/Acetaminophen ([place] 5/325) 2 tab PO Q4H PRN PRN Reason: For Moderate Pain 4-6 Last Admin: 09/15/17 10:08 Dose: 2 tab Albuterol/Ipratropium (Duoneb) 3 ml NEB [id number] [facility] Last Admin: 09/15/17 06:59 Dose: 3 ml Aspirin (Ecotrin) 81 mg PO BID [facility] Last Admin: 09/15/17 10:07 Dose: 81 mg Cyclobenzaprine HCl (Flexeril) 10 mg PO Q8HR PRN PRN Reason: spasms Fentanyl (Sublimaze) 50 mcg IV Q1H PRN PRN Reason: BREAKTHROUGH PAIN Hydralazine HCl (Apresoline) 25 mg PO BID [facility] Last Admin: 09/15/17 08:30 Dose: 25 mg Ropivacaine (Ropivacaine 0.2% 550 Ml) 550 mls @ 0 mls/hr NERVE BLCK INF [facility] PRN Reason: As Directed Dextrose/Sodium Chloride (D5 1/2 Ns) 1,000 mls @ 65 mls/hr IV .[id number] [facility] Last Admin: 09/15/17 06:20 Dose: Not Given Metformin HCl (Glucophage) 500 mg PO BID-WM [facility] Last Admin: 09/15/17 08:30 Dose: 500 mg Ondansetron HCl (Zofran) 4 mg IVP Q6H PRN PRN Reason: Nausea/Vomiting Pantoprazole Sodium (Protonix) 40 mg PO QAM [facility] Last Admin: 09/15/17 08:31 Dose: 40 mg Paroxetine HCl (Paxil Cr) 25 mg PO QPM [facility] Last Admin: 09/14/17 21:22 Dose: 25 mg Pramipexole Dihydrochloride (Mirapex) 0.75 mg PO DAILY [facility] Last Admin: 09/15/17 08:30 Dose: 0.75 mg Promethazine HCl (Phenergan) 12.5 mg IM Q4H PRN PRN Reason: Nausea Sodium Chloride (Flush - Normal Saline) 10 ml IVF Q12HR [facility] Last Admin: 09/15/17 10:07 Dose: Not Given Sodium Chloride (Flush - Normal Saline) 10 ml IVF PRN PRN PRN Reason: Saline Flush Temazepam (Restoril) 15 mg PO HS [facility] Last Admin: 09/14/17 21:22 Dose: 15 mg Tramadol HCl (Ultram) 50 mg PO Q6H PRN PRN Reason: Mild Pain (1-3) Last Admin: 09/14/17 21:21 Dose: 50 mg Tramadol HCl (Ultram) 100 mg PO Q6H PRN PRN Reason: Moderate Pain (4-6) Last Admin: 09/15/17 08:31 Dose: 100 mg Zolpidem Tartrate (Ambien) 5 mg PO HSPRN PRN PRN Reason: Insomnia Last Admin: 09/13/17 20:44 Dose: 5 mg
[2017-09-15 12:01] VITALS: BP 126/77; TEMP 98.5
--- NOTE | 2017-09-17 09:43 | DIS ---
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 PROCEDURE: Left reverse total shoulder arthroplasty and biceps tenodesis, used 25 mm base plate with 36 mm sphere, 4B long Flex stem, +6 low offset tray and 6 mm poly. HOSPITAL COURSE: Hospital stay was unremarkable. The patient was admitted to [place] [address] where she work ed with physical therapy and occupational therapy and doing quite well. She did stay an extra day fo r mobility and pain issues, but soon did quite well and was discharged on postop day #2. DISCHARGE CONDITION: Good/stable. DISPOSITION: Home. DISCHARGE FOLLOWUP: Followup would be in 10-14 days, sooner if there are problems or concerns. DISCHARGE MEDICATIONS: Given with usage instructions.
== END 2017-09-15 12:41 | disposition home or self-care (01) | DRG 483 ==
LOC: SURG A 09-13 07:02 → SURG B 09-13 12:13
PROVIDERS: ADMIT Orthopaedic Surgery; ATTEND Orthopaedic Surgery
PROC: 0RRK00Z Replacement of Left Shoulder Joint with Reverse Ball and Socket Synthetic Substitute, Open Approach (ICD-10-PCS; principal; 2017-09-13)
DX: M19.012 Primary osteoarthritis, left shoulder (principal); N17.9 Acute kidney failure, unspecified; M75.102 Unspecified rotator cuff tear or rupture of left shoulder, not specified as traumatic; I12.9 Hypertensive chronic kidney disease with stage 1 through stage 4 chronic kidney disease, or unspecified chronic kidney disease; M75.22 Bicipital tendinitis, left shoulder; E11.22 Type 2 diabetes mellitus with diabetic chronic kidney disease; N18.3 Chronic kidney disease, stage 3 (moderate); F41.9 Anxiety disorder, unspecified; F32.9 Major depressive disorder, single episode, unspecified; E78.5 Hyperlipidemia, unspecified; D86.9 Sarcoidosis, unspecified; Z88.2 Allergy status to sulfonamides; Z79.84 Long term (current) use of oral hypoglycemic drugs; Z79.899 Other long term (current) drug therapy
CPT/HCPCS: 36415; 36416; 71045; 71046; 80048; 80053; 81001; 83970; 84443; 85025; 85610; 85652; 85730; 86038; 86225; 86850; 86900; 86901; 87081; 93005; 93010; 94640; A4216; A4306; G8978-GP-CL; G8979-GP-CJ; G8987-GO-CL; G8988-GO-CI; J2001; J2250; J2405; J2550; J2704; J2795; J3010; J3370; J3490; J7050; J7620

== ENCOUNTER 2018-06-30 11:05 | Inpatient (IN) | payer MEDICARE, BC ==
[2018-06-30] MEDS ORDERED: Albuterol Sulfate 2.5 mg/0.5 ml Neb ONE ×2 (11:22)
[2018-06-30] MEDS ORDERED: Dexamethasone 4 mg/ml Vial ONE (11:28)
[2018-06-30] MEDS ORDERED: Magnesium 2 GM/50 ML BAG (IN WATER) ONE (11:28)
[2018-06-30 11:37] LABS: Actual Bicarbonate (HCO3a) 25.4 mEq/L (22-28); Analyzer IN Cardio ER; Base Excess (BEa) 0.1 mEq/L (-2.0 to +3.0); CO2 Tension 44.2 mmHg (35.0-45.0); Calcium, Ionized 1.16 mmol/L (1.12-1.30); Carboxyhemoglobin (COHb) 0.3 gm% (0.0-3.0); Hemoglobin (Hb) 10.5 g/dL (12.0-16.0); O2 Tension (PaO2) 187.3 mmHg (> 70.0); Potassium - ABG Lab 3.99 mmol/L (3.70-5.30); pH, Arterial 7.38 (7.35-7.45)
[2018-06-30 11:42] LABS: Puncture Site LB
[2018-06-30 12:20] LABS: Bilirubin Negative (Negative); Blood, Urine Negative (Negative); Clarity CLEAR (Clear); Glucose, Urine (Dipstick) Negative (Negative); Leukocyte Negative (Negative); Nitrite Negative (Negative); Protein, Urine (Dipstick) Negative (Neg-Trace); Specific Gravity, Urine 1.011 (1.002-1.036); Urobilinogen 0.2 mg/dL (0.2-1.0); pH, Urine 5.5 (5.0-9.0)
[2018-06-30 12:30] LABS: Hemoglobin 10.5 g/dL (12.0-16.0); Mean Corpuscular HGB CONC 30.9 g/dL (32.0-36.0); Mean Corpuscular Volume 87.3 fL (78.0-98.0); RBC Distribution Width 16.9 % (11.5-14.5)
[2018-06-30 12:36] LABS: ALT (SGPT) 19 U/L (8-55); AST (SGOT) 16 U/L (5-34); Albumin 3.8 g/dL (3.4-4.8); Alkaline Phosphatase 154 U/L (40-150); Anion Gap 13 mmol/L (10-20); BUN (Urea Nitrogen) 42 mg/dL (9.8-20.1); Bilirubin, Total 0.4 mg/dL (0.2-1.2); CK (CPK) 82 U/L (29-168); Calc. Creatinine Clearance 0 mL/min (70-130); Calcium 9.1 mg/dL (7.8-10.44); Carbon Dioxide 25 mmol/L (23-31); Chloride 108 mmol/L (98-107); Estimated GFR-MDRD 44; Globulin 2.8 g/dL (2.4-3.5); Glucose 95 mg/dL (83-110); Lipase 45 U/L (8-78); Potassium 4.3 mmol/L (3.5-5.1); Protein, Total 6.6 g/dL (6.0-8.3); Sodium 142 mmol/L (136-145)
[2018-06-30 12:45] LABS: Burr Cells SLIGHT = 2-5 cells (100X) (0-1/hpf); Eosinophils 3 % (0-10); Hypochromia SLIGHT = 6-15 cells (100X) (0-5/hpf); Lymphocytes 5 % (21-51); MDiff Complete? YES; Monocytes 9 % (0-10); Neutrophil 53 % (42-75); Platelet Count 471 thou/uL (130-400); Platelet Morphology Comment Appears Adequate; Polychromasia SLIGHT = 2-3 cells (100X) (0-2/hpf); Reactive Lymphocytes 29 % (0-10); Schistocytes SLIGHT = 2-5 cells (100X) (0-1/hpf); Target Cells SLIGHT = 2-5 cells (100X) (0-1/hpf); White Blood Cell (WBC) Count 18.9 thou/uL (4.8-10.8)
[2018-06-30 12:56] LABS: CKMB 3.4 ng/mL (0-6.6)
[2018-06-30] MEDS ORDERED: Aspirin Chewable 81 MG TAB ONE (13:18)
--- NOTE | 2018-06-30 13:41 | RAD ---
PORTABLE CHEST: DATE: 06/30/2018. PROVIDED CLINICAL HISTORY: Dyspnea. FINDINGS: Comparison 09/13/2017. Cardiac and mediastinal silhouette is unchanged in appearance. No focal consol idation, pleural fluid, or pneumothorax apparent. IMPRESSION: No evidence for acute cardiopulmonary process. POS: ROLANH
[2018-06-30] MEDS ORDERED: Benzonatate 100 MG CAP PO PRN (13:52)
[2018-06-30] MEDS ORDERED: Calcium Carbonate 500 MG ChewTAB PO PRN (13:52)
[2018-06-30] MEDS ORDERED: Diabetic Tussin 200 MG/10 ML UDCUP PO PRN (13:52)
[2018-06-30] MEDS ORDERED: Acetaminophen 325 MG TAB PO PRN (13:52)
[2018-06-30] MEDS ORDERED: Bisacodyl 5 MG TAB PO PRN (13:52)
[2018-06-30] MEDS ORDERED: Ondansetron PF 4 MG/2 ML Vial IVP PRN (13:52)
[2018-06-30] MEDS ORDERED: Sodium Chloride 0.65% Nasal 44 ML BOT EA NARE PRN (13:52)
[2018-06-30] MEDS ORDERED: Nitroglycerin 0.4 MG TAB (25 Tab Bottle) SL PRN (13:52)
[2018-06-30] MEDS ORDERED: Senokot S 8.6-50 MG TAB PO PRN (13:52)
[2018-06-30] MEDS ORDERED: hydrALAZINE 20 MG/ML VIAL SLOW IVP PRN (13:52)
[2018-06-30] MEDS ORDERED: Furosemide 40 MG/4 ML VIAL SLOW IVP SCH (14:00)
[2018-06-30] MEDS ORDERED: ISOVUE-370 76%-LOCM 1 ML ONE (14:13)
[2018-06-30] MEDS ORDERED: Aspirin 325 mg Enteric Coated Tablet PO SCH (14:15)
--- NOTE | 2018-06-30 14:35 | CT ---
CT PULMONARY ANGIOGRAM WITH IV CONTRAST AND 3D MIP RECONSTRUCTIONS: DATE: 06/30/2018. PROVIDED CLINICAL HISTORY: Shortness of breath. FINDINGS: Comparison is made with the study dated 05/23/2016. There is persistent enlargement of the main pulmo nary artery segment compatible with changes of increased pulmonary arterial pressures. There is no e vidence for central or segmental pulmonary embolus. Vascular calcification including coronary calciu m is seen. The heart, pericardium, and great vessels appear otherwise unremarkable. Mediastinal and hilar lymph node enlargement is again noted and appears stable. There is a small amount of right pleural fluid. The lungs are free of significant opacity. Volume l oss is seen at the right lung base. The airway appears patent. And of normal caliber. The visualize d portions of the upper abdomen demonstrate no acute process. Compression fracture involving lower t horacic spine status post vertebroplasty change noted. IMPRESSION: 1. No evidence for central or segmental pulmonary embolus. 2. Vascular calcification including coronary calcium. 3. Persistent mediastinal and hilar lymph node enlargement. 4. Dilation of the pulmonary outflow tract and main pulmonary arteries, suggesting pulmonary hyperte nsion. POS: DARY
[2018-06-30] MEDS ORDERED: Dextrose 5% in Water 1,000 ML IV PRN (15:23)
[2018-06-30] MEDS ORDERED: Dextrose 50% Abboject 50 ML SYRINGE SLOW IVP PRN (15:23)
[2018-06-30] MEDS ORDERED: HumaLOG 300 UNITS/3 ML VIAL SC PRN (15:23)
[2018-06-30 15:51] VITALS: BMI 36.4
[2018-06-30 15:57] LABS: Troponin I 0.084 ng/mL (< 0.028)
[2018-06-30] MEDS ORDERED: Sodium Chloride 0.9% 1,000 ML IV SCH (16:00)
--- NOTE | 2018-06-30 16:08 | HP ---
PRIMARY CARE PHYSICIAN: Suzi Mckeon MD in [place]. PRIMARY TRANSPORTATION DEPARTMENT HEAD: Oliver Cadet MD CHIEF COMPLAIN IS: Worsening shortness of breath. HISTORY OF PRESENTING ILLNESS: Ms. Coburn is a 77-year-old female with past medical history of sarcoidosis and history of coronary artery disease as well as diabetes, history of blood clots status post IVC filter, and hypertension, who came to the emergency room with above-mentioned complaints. History is mainly obtained by the patient herself and electronic medical records have been reviewed. Ms. 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 She sleeps only 2 hours at night and is usually up and about. Lately, she has been feeling very bad for the last 1 month. Her main complaint is worsening shortness of breath. It has gotten back to the point, where she is not able to move around her house or do her job at all. She is largely bed bound because of worsening shortness of breath. She feels weak and easily tired. She has not noticed any excessive swelling, orthopnea, or PND. She notices that she urinates multiple times at night and reports that her diapers weigh about 5 pounds and this happens at least 5 times a night. Denies any recent illnesses or sick contacts. No recent fever, chills, cough, rhinorrhea, or sore throat. She denies any chest pain, but has a chronic pain between her shoulder and her neck. She denies any nausea, vomiting, diarrhea, or abdominal pain. She denies any dysuria. No blood in her stools or black-colored stools. She also reports that lately she has been having a hard time controlling her blood pressure. In the emergency room upon presentation, she was saturating 96% on room air, but her blood pressure was elevated to 191/96. She was visibly short of breath and underwent general examination including a chest x-ray, which did not show any infiltrate or edema. She had leukocytosis with WBCs of 18.9, but also reports that she is on chronic steroids with her history of sarcoidosis. Her D-dimer is elevated to 0.91, so she underwent a CT angio, which is negative for PE. It also did not show any evidence of infiltrates or pulmonary edema or nodules or masses. She has evidence of pulmonary vascular hypertension. She had ABGs drawn, which were essentially within normal limit with pH of 7.38, pCO2 of 44, and pO2 of 187. She did have borderline elevation of troponin at 0.074 and elevated BNP to 416. In the emergency room, no clear diagnosis was made, but she was treated with 81 mg of aspirin, multiple nebulizer, magnesium, Decadron, and Levaquin and is now being admitted for further workup for worsening shortness of breath and dyspnea. PAST MEDICAL HISTORY: 1. Sarcoidosis. The patient reports that she has sarcoidosis for about 17 years, but has never been followed up by a Pulmonary Medicine doctor. She is on chronic prednisone therapy. 2. Diabetes mellitus type 2, on metformin. 3. Hypertension. 4. Restless legs syndrome. 5. Chronic pain. 6. Depression. 7. Chronic kidney disease, stage 3. 8. History of thrombosis of the right groin, status post IVC filter placement. 9. Coronary artery disease. PAST SURGICAL HISTORY: 1. Hysterectomy. 2. Right shoulder replacement. 3. Cardiac stent placement. 4. IVC filter placement. 5. Cervical spinal fusion. 6. The patient reports personal history of cholecystectomy and splenectomy. ALLERGIES: INCLUDE BACTRIM. FAMILY HISTORY: Mother with diabetes mellitus. Father of complications of coronary artery disease. SOCIAL HISTORY: She is and lives at home. She lost 1 son in accident many years ago. No history of drug, tobacco, or alcohol abuse. HOME MEDICATIONS: As listed in the ER records; 1. Metoprolol tartrate 25 mg, unknown dose. 2. Lisinopril 10 mg. 3. Tramadol every 6 hours p.r.n. 4. Pramipexole 0.75 mg b.i.d. 5. Colchicine 0.6 mg b.i.d. 6. Prednisone 20 mg b.i.d. CODE STATUS: Full code discussed with the patient. The patient would like to appoint her [id number], Evelio as her surrogate decision maker. Family is not at bedside at this time. REVIEW OF SYSTEMS: A 14-point review of system was done and it is negative except for those mentioned in the history and physical LABORATORY STUDIES: Lab examination, CBC shows WBCs at 18.9, hemoglobin 10.5, and platelet count of 471. D-dimer 0.91. ABG as per HPI above. Serum chemistries show chloride of 108, BUN 42, and creatinine 1.20. Lactic acid is normal. Creatine kinase is normal. CK-MB is normal. Troponin 0.072 and BNP of 416. Lipase is normal. Urinalysis unremarkable. Chest x-ray by my review shows no evidence of pleural effusion, edema, or infiltrate. Chest CT angio of the thorax is negative for any evidence of pulmonary embolism. Dilatations the pulmonary outflow tract and main pulmonary arteries are seen suggesting pulmonary arterial hypertension. Vascular calcification including coronary calcium is seen. She has persistent mediastinal hilar lymph node enlargement. A 12-lead EKG shows no evidence of acute ST or T-wave changes. PHYSICAL EXAMINATION: VITAL SIGNS: Upon presentation; blood pressure 191/98, pulse of 67, respirations 26, saturating 96% on room air, and temperature 98.4. GENERAL: She appears uncomfortable, anxious, and easily winded with conversation, otherwise in no acute distress. She is lying in bed. HEENT: Mucous membrane is moist and pink. No oropharyngeal exudate or erythema. Head is normocephalic and atraumatic. Pupils are equal and reactive to light and accommodation. Extraocular movement intact. NECK: Supple without any lymphadenopathy, JVD, or bruit. CHEST: Clear to auscultation without any wheezing, rales, or rhonchi. HEART: Rate and rhythm are regular without any murmurs, rubs, or gallops. ABDOMEN: Soft, nontender, and nondistended with positive bowel sounds. EXTREMITIES: Free of any cyanosis, clubbing, or edema. NEUROLOGICAL: Nonfocal. SKIN: Free of any rashes or bruises. Feels warm and dry to touch. PSYCHIATRIC: Mild anxiety noticed. IMPRESSION AND PLAN: 1. Dyspnea. No clear etiology is evident at this time. The patient does have some chronic respiratory failure and has home oxygen, which she rarely uses. At this time, she seems to be in mild fluid overload with elevated BNP and her symptoms of worsening shortness of breath. Given her history of coronary artery disease. I would go ahead and do an echocardiogram to rule out any cardiomyopathy or valvular disease. I will give her a dose of IV Lasix. Also given her history of chronic high-dose steroid use and sarcoidosis, she will be treated with high dose IV steroids and nebulizers. We will request consultation with Pulmonary Medicine for further recommendations. As said, there is no indication for antibiotics at this time. The patient's leukocytosis is secondary to chronic use of steroids. She is afebrile and chest x-ray and urinalysis did not show any evidence of infection. We will rule out respiratory viral pathogen by PCR. 2. Elevated cardiac enzymes. Her troponin is in the indeterminate range. Likely due to uncontrolled hypertension with mild acute congestive heart failure symptoms. We will continue to trend serial cardiac enzymes and treat her with full-dose aspirin and perform a transthoracic echocardiogram. The patient reports that she has not been on any cardiac medication, but usually takes a baby aspirin by herself. 3. Controlled hypertension. Reconcile and restart home medications and add p.r.n. antihypertensives. She most likely has a cardiac strain because of uncontrolled hypertension with troponin leak. 4. Acute on chronic kidney disease seems to be at baseline. We will monitor and avoid any nephrotoxic agents. 5. History of coronary artery disease. Restart her metoprolol and lisinopril once the dosages are confirmed. 6. History of restless legs syndrome. Restart pramipexole once the dose is confirmed. 7. History of sarcoidosis. The patient will benefit from a pulmonary followup in the outpatient setting as well. 8. Deep venous thrombosis and gastrointestinal prophylaxis. 9. 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 10. Disposition. Ms. Coburn is currently being admitted to the hospital with complaints of worsening shortness of breath with unclear etiology. Estimated length of stay at this time is at least 2 to 3 midnights to complete the workup and stabilize the patient. Further management will depend upon her clinical course. Job ID: [id number]
[2018-06-30] MEDS: HumaLOG 300 UNITS/3 ML VIAL SC PRN (17:13)
--- NOTE | 2018-06-30 17:50 | CON ---
DATE OF CONSULTATION: 06/30/2018 CONSULTING PHYSICIAN: Minnie Morrison MD. REASON FOR CONSULTATION: Shortness of breath. HISTORY OF PRESENT ILLNESS: Ms. Coburn is a 77-year-old female who presents to the hospital with increasing shortness of breath of unknown etiology. She has been to this facility several times in the past. She was also admitted to the [facility] few weeks ago with similar complaints. She is a very poor historian and really cannot tell me what is wrong at the current time. She seems quite anxious. PAST MEDICAL HISTORY: 1. Sarcoidosis that was diagnosed by a splenic biopsy [place] [address]ne. Her sarcoidosis has been managed by Dr. Soto and Dr. Suzi Mckeon ever since that time. 2. Multiple episodes of pulmonary emboli in the past. She was initially anticoagulated, but had a problem with a pseudoaneurysm in the groin and had an IVC filter placed. 3. Acute renal insufficiency related to volume depletion in the past. 4. Diabetes mellitus. 5. Hypertension. PAST SURGICAL HISTORY: 1. Splenectomy. 2. IVC filter placement. 3. Cholecystectomy. 4. Hysterectomy. SOCIAL HISTORY: Nonsmoker. Does not consume alcohol. Does not use illicit drugs. ALLERGIES: BACTRIM AND SULFA DRUGS. FAMILY MEDICAL HISTORY: Remarkable for diabetes and coronary artery disease. CURRENT MEDICATIONS: 1. Metformin. 2. Hydralazine. 3. Restoril. 4. Mirapex. 5. Protonix. 6. Paroxetine. 7. Mobic. 8. Lisinopril. 9. [place]ar. 10. Aspirin. 11. She is also on a small dose of prednisone. She cannot tell me any doses of her medications at this time. REVIEW OF SYSTEMS: Remarkable for shortness of breath and weakness. No fever, chills, nausea, vomiting, hematemesis, melena, hematochezia, hematuria, or dysuria. PHYSICAL EXAMINATION: VITAL SIGNS: Blood pressure 149/100, pulse 85, respiratory rate 18, O2 saturation 98%. GENERAL: She is awake, alert, in no distress. HEENT: Pupils reactive. Sclerae anicteric. Oropharynx clear. NECK: Without adenopathy or JVD. LUNGS: Clear without wheezing. CARDIAC: S1, S2. Regular. ABDOMEN: Obese, soft, nontender. EXTREMITIES: No clubbing, cyanosis, or edema. LABORATORY DATA: White blood cell count 18.9, hematocrit 34, platelet count 471. D-dimer 0.91. PH 7.38, pCO2 of 44, PO2 187 on room air. Sodium 142, potassium 4.3, chloride 108, CO2 of 25, BUN 42, creatinine 1.2, glucose 95. BNP level was 416. I reviewed the CT of the chest. She has some nonspecific mediastinal adenopathy was not enlarged over time. She has no other findings including no pulmonary emboli. ASSESSMENT: Dyspnea - I suspect this is probably related to diastolic heart dysfunction. I doubt this is related to sarcoidosis. RECOMMENDATIONS: I would not treat this lady with high-dose IV steroids. I would maintain her on whatever dose prednisone she is on at home. I will check an echocardiogram and consider cardiology evaluation. The above encompassed 50 minutes time, of that time, greater than 50% spent with the patient and/or the patient's unit in the hospital. Job ID: [id number]
[2018-06-30] MEDS ORDERED: methylPREDNISolone Sod Succ 40 MG VIAL IVP SCH (18:00)
[2018-06-30] MEDS: HYDROcodone/Acetaminophen 5/325 mg Tablet PO PRN ×2 (18:07→22:02)
[2018-06-30 18:42] LABS: Troponin I 0.066 ng/mL (< 0.028)
[2018-07-01] MEDS: HYDROcodone/Acetaminophen 5/325 mg Tablet PO PRN ×4 (01:38→19:37)
[2018-07-01 05:23] LABS: #Lymphocytes 0.8 thou/uL (1.20-3.40); #Monocytes 0.6 thou/uL (0.11-0.59); #Neutrophils 12.7 thou/uL (1.40-6.50); %Eosinophils 0.3 % (0.0-10.0); %Lymphocytes 5.5 % (21.0-51.0); %Monocytes 4.3 % (0.0-10.0); %Neutrophils 89.9 % (42.0-75.0); Mean Corpuscular HGB CONC 31.1 g/dL (32.0-36.0); Mean Corpuscular Hemoglobin 27.4 pg (27.0-31.0); Mean Corpuscular Volume 88.2 fL (78.0-98.0); Mean Platelet Volume 8.1 fL (7.4-10.4); Platelet Count 467 thou/uL (130-400); RBC Distribution Width 16.9 % (11.5-14.5); Red Blood Cell (RBC) Count 3.65 mill/uL (4.20-5.40); White Blood Cell (WBC) Count 14.1 thou/uL (4.8-10.8)
[2018-07-01 05:35] LABS: Anion Gap 18 mmol/L (10-20); BUN (Urea Nitrogen) 37 mg/dL (9.8-20.1); Calc. Creatinine Clearance 47 mL/min (70-130); Carbon Dioxide 26 mmol/L (23-31); Chloride 102 mmol/L (98-107); Estimated GFR-MDRD 36; Glucose 225 mg/dL (83-110); Potassium 3.8 mmol/L (3.5-5.1); Sodium 142 mmol/L (136-145)
[2018-07-01] MEDS ORDERED: predniSONE 20 MG TAB PO SCH ×2 (08:00→14:15)
[2018-07-01] MEDS: Famotidine 20 MG TAB PO SCH (08:09)
[2018-07-01] MEDS: cloNIDine 0.1 MG TAB PO PRN (08:13)
[2018-07-01] MEDS: Enoxaparin Sodium 40 MG/0.4 ML SYRINGE SC SCH (08:15)
[2018-07-01] MEDS: HumaLOG 300 UNITS/3 ML VIAL SC PRN (08:21)
[2018-07-01] MEDS ORDERED: Aspirin 325 mg Enteric Coated Tablet PO SCH (09:00)
[2018-07-01] MEDS ORDERED: traZODone HCl 50 MG TAB PO PRN (09:56)
[2018-07-01] MEDS ORDERED: traMADol HCl 50 MG TAB PO PRN ×2 (10:12→14:19)
--- NOTE | 2018-07-01 10:14 | PRG ---
DATE OF SERVICE: 07/01/2018 SUBJECTIVE: The patient is doing okay. OBJECTIVE: VITAL SIGNS: On exam; temperature 97.7, pulse 91, blood pressure 181/79, and O2 saturation 97%. HEENT: Unremarkable. NECK: No JVD. CHEST: Clear. CARDIAC: S1 and S2. Regular without murmur. ABDOMEN: Soft. EXTREMITIES: No edema. LABORATORY DATA: White blood cell count 14.1, hematocrit 32.2, and platelet count 467. Sodium 142, potassium 3.8, BUN 37, creatinine 1.4, and glucose 225. ASSESSMENT: 1. History of sarcoidosis, which does not appear to be active at this time. 2. Shortness of breath, which is probably multifactorial and related to obesity versus diastolic heart dysfunction. PLAN: In my opinion, the patient probably did not need her high dose of prednisone that she is on, but that can be tapered as an outpatient by the doctors, who had been prescribing her. No further recommendations at this time. Job ID: [id number]
[2018-07-01] MEDS ORDERED: PROVENTIL INHALER 6.7 G (200 INHALATIONS) INH PRN (14:04)
[2018-07-01] MEDS ORDERED: HYDROcodone/Acetaminophen 5/325 mg Tablet PO PRN (14:04)
--- NOTE | 2018-07-01 14:07 | PDOC.PN ---
- Subjective Encounter Start Date: 07/01/18 Encounter Start Time: 14:05 Subjective: feels better but complains of head and neck pain - Objective Resuscitation Status - Order Detail: 06/30/18 15:20 Resuscitation Status Routine Resuscitation Status: FULL: Full Resuscitation Discussed with: discussed w pt MAR Reviewed: Yes Vital Signs & Weight: Vital Signs (12 hours) Temp Pulse Pulse Pulse Resp BP BP 07/01/18 13:56 85 24 H 07/01/18 12:39 98.1 F 66 18 07/01/18 10:28 92 28 H 07/01/18 09:49 91 87 150/66 H 07/01/18 08:13 181/79 H 07/01/18 08:10 07/01/18 08:06 97.7 F 91 20 07/01/18 06:42 84 24 H 07/01/18 02:59 98.2 F 95 16 07/01/18 02:06 103 H 24 H BP BP Pulse Ox Pulse Ox 07/01/18 13:56 96 07/01/18 12:39 159/65 H 96 07/01/18 10:28 97 07/01/18 09:49 144/65 H 98 07/01/18 08:13 07/01/18 08:10 97 07/01/18 08:06 181/79 H 97 07/01/18 06:42 96 07/01/18 02:59 146/63 H 95 07/01/18 02:06 95 Weight Admit Weight 199 lb 3.2 oz Weight 199 lb 3.2 oz I&O: 06/30/18 07/01/18 07/02/18 06:59 06:59 06:59 Intake Total 1660 Output Total 300 Balance 1360 Result Diagrams: 07/01/18 05:06 07/01/18 05:06 Additional Labs: Accuchecks 07/01/18 07/01/18 06/30/18 10:47 06:00 20:04 POC Glucose 140 H 229 H 319 H 06/30/18 16:33 POC Glucose 211 H Microbiology 06/30/18 16:37 Nasopharyngeal swab Respiratory Panel (PCR) - Final 06/30/18 11:52 Nasal swab Influenza Types A,B Direct EIA - Final 06/30/18 12:04 Venous blood - Right Arm Blood Culture - Preliminary Specimen has been received and culture in progress. No Growth to date. 06/30/18 12:02 Venous blood - Right Hand Blood Culture - Preliminary Specimen has been received and culture in progress. No Growth to date. Phys Exam - Physical Examination Constitutional: NAD anxious HEENT: PERRLA, moist MMs, sclera anicteric, oral pharynx no lesions Neck: no nodes, no JVD, supple, full ROM Respiratory: no wheezing, no rales, no rhonchi, clear to auscultation bilateral Cardiovascular: RRR, no significant murmur Gastrointestinal: soft, non-tender, no distention, positive bowel sounds Musculoskeletal: no edema, pulses present Neurological: non-focal, normal sensation, moves all 4 limbs Psychiatric: normal affect, A&O x 3 Skin: no rash Dx/Plan (1) Dyspnea Code(s): R06.00 - DYSPNEA, UNSPECIFIED Status: Acute (2) Troponin I above reference range Code(s): R74.8 - ABNORMAL LEVELS OF OTHER SERUM ENZYMES Status: Acute (3) Uncontrolled hypertension Code(s): I10 - ESSENTIAL (PRIMARY) HYPERTENSION Status: Acute (4) CKD (chronic kidney disease) stage 3, GFR 30-59 ml/min Code(s): N18.3 - CHRONIC KIDNEY DISEASE, STAGE 3 (MODERATE) Status: Chronic (5) Diabetes type 2, controlled Code(s): E11.9 - TYPE 2 DIABETES MELLITUS WITHOUT COMPLICATIONS Status: Chronic Qualifiers: (6) Dyslipidemia Code(s): E78.5 - HYPERLIPIDEMIA, UNSPECIFIED Status: Chronic (7) GERD (gastroesophageal reflux disease) Code(s): K21.9 - GASTRO-ESOPHAGEAL REFLUX DISEASE WITHOUT ESOPHAGITIS Status: Chronic (8) Hypertension Code(s): I10 - ESSENTIAL (PRIMARY) HYPERTENSION Status: Chronic Qualifiers: (9) Obesity (BMI 30-39.9) Code(s): E66.9 - OBESITY, UNSPECIFIED Status: Chronic (10) Sarcoidosis Code(s): D86.9 - SARCOIDOSIS, UNSPECIFIED Status: Chronic - Plan out of bed/ambulate, DVT proph w/SCDs restart Allie emeds.ASA 81 mg/day. -: taper steroids.Encouraged to reduce home dose of prednisone.no clear -: indication of high dose steroids for years. -: Cardiac work up pending w ECHO.Lungs do not seem to be the problem -: symptoms also exacerbated by anxiety & uncontrolled HTN.Xanax prn * .restart anti hypertensives once confirmed * .suspect Non compliance * Hd stable. Review of Systems - Review of Systems Constitutional: malaise ENT: negative: Ear Pain, Ear Discharge, Nose Pain, Nose Discharge, Nose Congestion, Mouth Pain, Mouth Swelling, Throat Pain, Throat Swelling, Other Respiratory: SOB with Excertion. negative: Cough, Dry, Shortness of Breath, Hemoptysis, Pleuritic Pain, Sputum, Wheezing Cardiovascular: negative: chest pain, palpitations, orthopnea, paroxysmal nocturnal dyspnea, edema, light headedness, other Gastrointestinal: negative: Nausea, Vomiting, Abdominal Pain, Diarrhea, Constipation, Melena, Hematochezia, Other Genitourinary: negative: Dysuria, Frequency, Incontinence, Hematuria, Retention , Other Musculoskeletal: negative: Neck Pain, Shoulder Pain, Arm Pain, Back Pain, Hand Pain, Leg Pain, Foot Pain, Other Neurological: negative: Weakness, Numbness, Incoordination, Change in Speech, Confusion, Seizures, Other - Medications/Allergies Allergies/Adverse Reactions: Allergies Allergy/AdvReac Type Severity Reaction Status Date / Time Sulfa (Sulfonamide Allergy Verified 06/30/18 15:58 Antibiotics) sulfamethoxazole Allergy Verified 06/30/18 15:58 [From Bactrim] trimethoprim [From Bactrim] Allergy Verified 06/30/18 15:58 Medications: Current Medications Acetaminophen (Tylenol) 650 mg PO Q4H PRN PRN Reason: Headache/Fever/Mild Pain (1-3) Hydrocodone Bitart/Acetaminophen ([place] 5/325) 1 tab PO Q4H PRN PRN Reason: Moderate Pain (4-6) Last Admin: 07/01/18 08:09 Dose: 1 tab Hydrocodone Bitart/Acetaminophen ([place] 5/325) 1 tab PO Q4H PRN PRN Reason: Mild Pain (1-3) Hydrocodone Bitart/Acetaminophen ([place] 5/325) 2 tab PO Q4H PRN PRN Reason: For Moderate Pain 4-6 Albuterol Sulfate (Proventil Hfa) 2 puff INH Q4HR PRN PRN Reason: Dyspnea Albuterol/Ipratropium (Duoneb) 3 ml NEB [id number] Last Admin: 07/01/18 13:56 Dose: 3 ml Albuterol/Ipratropium (Duoneb) 3 ml NEB Q6H PRN PRN Reason: SOB &/or Wheezing Alprazolam (Xanax) 0.25 mg PO BIDPRN PRN PRN Reason: Anxiety Aspirin (Ecotrin) 81 mg PO DAILY DENY Benzonatate (Tessalon) 100 mg PO Q6H PRN PRN Reason: Cough Bisacodyl (Dulcolax) 10 mg PO DAILYPRN PRN PRN Reason: Constipation Calcium Carbonate (Tums) 1,000 mg PO Q4H PRN PRN Reason: Heartburn or Indigestion Clonidine (Catapres) 0.1 mg PO Q4H PRN PRN Reason: SBP > 160____ Last Admin: 07/01/18 08:13 Dose: 0.1 mg Dextrose/Water (Dextrose 50%) 25 gm SLOW IVP PRN PRN PRN Reason: Hypoglycemia Enoxaparin Sodium (Lovenox) [address] [facility] Last Admin: 07/01/18 08:15 Dose: 40 mg Famotidine (Pepcid) [address] [facility] Last Admin: 07/01/18 08:09 Dose: 20 mg Glucagon (Glucagon) 1 mg IM PRN PRN PRN Reason: Hypoglycemia Guaifenesin (Robitussin Sf) 200 mg PO Q4H PRN PRN Reason: Cough Hydralazine HCl (Apresoline) 10 mg SLOW IVP Q4H PRN PRN Reason: SBP > 180 and HR < 70 Last Admin: 07/01/18 01:36 Dose: 10 mg Hydralazine HCl (Apresoline) [address] [facility] Dextrose/Water (D5w) 1,000 mls @ 0 mls/hr IV .Q0M PRN PRN Reason: Hypoglycemia Insulin Human Lispro (Humalog) 0 units SC .MODERATE SLIDING SC PRN PRN Reason: Moderate Correctional Scale Last Admin: 07/01/18 08:21 Dose: 4 units Insulin Human Lispro (Humalog) 0 units SC .BEDTIME SLIDING SC PRN PRN Reason: Bedtime Correctional Scale Last Admin: 06/30/18 21:18 Dose: 4 units Lisinopril (Zestril) [address] [facility] Metoprolol Tartrate (Lopressor) [address] [facility] Nitroglycerin (Nitrostat) 0.4 mg SL Q5MIN PRN PRN Reason: Chest Pain Non-Formulary Medication (Paroxetine Hcl [Paroxetine Er]) [address] [facility] Non-Formulary Medication (Pramipexole Di-Hcl [Mirapex]) 0.[address] [facility] Ondansetron HCl (Zofran) 4 mg IVP Q6H PRN PRN Reason: Nausea/Vomiting Prednisone (Prednisone) 20 mg PO QAM-WM [facility] Senna/Docusate Sodium (Senokot S) 2 tab PO BID PRN PRN Reason: Constipation Sodium Chloride ([place] 0.65%) 0 ml EA NARE QIDPRN PRN PRN Reason: Nasal Congestion Tramadol HCl (Ultram) 50 mg PO Q4H PRN PRN Reason: Moderate Pain (4-6) Trazodone HCl (Desyrel) 50 mg PO HS PRN PRN Reason: Insomnia
[2018-07-01] MEDS: ALPRAZolam 0.25 MG TAB PO PRN ×2 (14:41→23:37)
[2018-07-01] MEDS: Pramipexole Di-HCl 0.25 MG TAB PO SCH (17:32)
[2018-07-01] MEDS: hydrALAZINE 25 MG TAB PO SCH (19:38)
[2018-07-01] MEDS: Metoprolol Tartrate 25 MG TAB PO SCH (19:38)
[2018-07-02] MEDS: ALPRAZolam 0.25 MG TAB PO PRN ×2 (04:45→21:49)
[2018-07-02] MEDS ORDERED: Sodium Chloride 0.9% 10 ML ONE (07:59)
[2018-07-02] MEDS: Aspirin 81 mg Enteric Coated Tablet PO SCH (08:14)
[2018-07-02] MEDS: predniSONE 20 MG TAB PO SCH (08:14)
[2018-07-02] MEDS: Pramipexole Di-HCl 0.25 MG TAB PO SCH ×2 (08:15→20:26)
[2018-07-02] MEDS: Famotidine 20 MG TAB PO SCH (08:15)
[2018-07-02] MEDS: Lisinopril 20 MG TAB PO SCH (08:15)
[2018-07-02] MEDS: hydrALAZINE 25 MG TAB PO SCH ×2 (08:16→20:26)
[2018-07-02] MEDS: Metoprolol Tartrate 25 MG TAB PO SCH ×2 (08:16→20:27)
[2018-07-02] MEDS: PARoxetine 20 MG TAB PO SCH (08:16)
[2018-07-02] MEDS: Enoxaparin Sodium 40 MG/0.4 ML SYRINGE SC SCH (08:17)
[2018-07-02] MEDS: HYDROcodone/Acetaminophen 5/325 mg Tablet PO PRN ×3 (08:20→18:59)
[2018-07-02] MEDS ORDERED: Furosemide 40 MG/4 ML VIAL SLOW IVP SCH (08:30)
[2018-07-02 09:08] LABS: #Eosinphils 0.1 thou/uL (0.0-0.7); #Lymphocytes 1.3 thou/uL (1.20-3.40); #Monocytes 0.5 thou/uL (0.11-0.59); #Neutrophils 4.4 thou/uL (1.40-6.50); %Eosinophils 1.1 % (0.0-10.0); %Lymphocytes 20.6 % (21.0-51.0); %Monocytes 7.6 % (0.0-10.0); %Neutrophils 70.7 % (42.0-75.0); Hemoglobin 8.3 g/dL (12.0-16.0); Mean Corpuscular HGB CONC 36.9 g/dL (32.0-36.0); Mean Corpuscular Hemoglobin 32.5 pg (27.0-31.0); Mean Corpuscular Volume 87.9 fL (78.0-98.0); Mean Platelet Volume 9.2 fL (7.4-10.4); Platelet Count 339 thou/uL (130-400); RBC Distribution Width 17.1 % (11.5-14.5); Red Blood Cell (RBC) Count 2.57 mill/uL (4.20-5.40); White Blood Cell (WBC) Count 6.3 thou/uL (4.8-10.8)
[2018-07-02 09:22] LABS: Anion Gap 13 mmol/L (10-20); BUN (Urea Nitrogen) 39 mg/dL (9.8-20.1); Calc. Creatinine Clearance 47 mL/min (70-130); Carbon Dioxide 29 mmol/L (23-31); Chloride 103 mmol/L (98-107); Estimated GFR-MDRD 36; Glucose 93 mg/dL (83-110); Potassium 4.1 mmol/L (3.5-5.1); Sodium 141 mmol/L (136-145)
--- NOTE | 2018-07-02 09:55 | PRG ---
DATE OF SERVICE: 07/02/2018 SUBJECTIVE: Ms. Coburn says her shortness of breath is 90% better. OBJECTIVE: VITAL SIGNS: Temperature 97.3, pulse 53, pulse 164/71, O2 saturation 95% on room air. HEENT: Unremarkable. NECK: No JVD. CHEST: Clear. CARDIAC: S1, S2. Regular. ABDOMEN: Soft. EXTREMITIES: No edema. LABORATORY DATA: White blood cell count 6.3, hematocrit 22.6, and platelet count 339. Sodium 141, potassium 4.1, chloride 103, CO2 of 29, BUN 39, creatinine 1.4, glucose 93. Echocardiogram demonstrated diastolic cardiac dysfunction with [id number] aortic regurgitation, elevated right-sided heart pressures. Aortic valve sclerosis with reduced excursion. ASSESSMENT: 1. Likely diastolic cardiac dysfunction contributing to the patient's dyspnea. 2. Old history of sarcoidosis. 3. Likely obstructive sleep apnea. RECOMMENDATION: 1. Outpatient sleep study to work up CLIFF given that she has severely elevated right-sided heart pressures. 2. She was anemic today on CBC. That may need to be further worked up by the primary care team. Job ID: [id number]
[2018-07-02 10:39] LABS: Burr Cells SLIGHT = 2-5 cells (100X) (0-1/hpf); Hypochromia SLIGHT = 6-15 cells (100X) (0-5/hpf); MDiff Complete? YES; Polychromasia SLIGHT = 2-3 cells (100X) (0-2/hpf); Target Cells SLIGHT = 2-5 cells (100X) (0-1/hpf)
[2018-07-02 11:41] LABS: Hemoglobin 9.6 g/dL (12.0-16.0)
--- NOTE | 2018-07-02 12:05 | PQF ---
DATE: 07-02-18 ATTN: DR. DM VELASQUEZ Please exercise your independent, professional judgment in responding to the clarification form. Clinical indicators are provided on the bottom of this form for your review Please check appropriate box(s): [ ] NSTEMI (TN type I) [ ] NSTEMI due to Demand Ischemia (AMI Type II) [ ] Demand Ischemia without TN [ ] Other diagnosis [ ] Unable to determine In addition, please specify: Present on Admission (POA): [ ] Yes [ ] No [ ] Unable to determine CLINICAL INDICATORS - SIGNS / SYMPTOMS / LABS ER DX: ACUTE DYSPNEA, ACUTE COPD EXACERBATION, COR PULMONALE, INDETERMINATE TROPONIN H&P: 06-30-18: ELEVATED CARDIAC ENZYMES, HER TROPONIN IS IN THE INDETERMINATE RANGE. TROPONIN: 06-30-18: 0.072 0.084 0.066 RISKS: H&P: 06-30-18: HX OF SARCOIDOSIS AND HX OF CAD, DM, HX OF BLOOD CLOTS S/ P IVC FILTER, HTN TREATMENTS: H&P: 06-30-18: HX OF CAD. RESTART HER METOPROLOL AND LISINOPRIL ECHO 07-01-18 (This form is maintained as a part of the permanent medical record) 2014 [employer]. All Rights Reserved TALITA [email or web address] Office: [phone] [facility] SYSTEMDelonte
--- NOTE | 2018-07-02 14:45 | PDOC.PN ---
- Subjective Encounter Start Date: 07/02/18 Encounter Start Time: 08:20 Pt seen for followup re: shortness of breath. Feels slightly better. No fevers or chills. - Objective Resuscitation Status - Order Detail: 06/30/18 15:20 Resuscitation Status Routine Resuscitation Status: FULL: Full Resuscitation Discussed with: discussed w pt Vital Signs & Weight: Vital Signs (12 hours) Temp Pulse Pulse Pulse Resp BP BP 07/02/18 11:50 98.1 F 64 18 07/02/18 10:09 52 L 59 L 151/67 H 07/02/18 08:50 69 63 136/60 07/02/18 08:16 53 L 164/71 H 07/02/18 08:15 164/71 H 07/02/18 08:05 97.6 F 53 L 18 07/02/18 04:00 97.3 F L 57 L 17 BP BP BP Pulse Ox 07/02/18 11:50 150/65 H 98 07/02/18 10:09 145/65 H 07/02/18 08:50 150/68 H 07/02/18 08:16 07/02/18 08:15 07/02/18 08:05 164/71 H 98 07/02/18 04:00 161/74 H 95 Weight Admit Weight 199 lb 3.2 oz Weight 199 lb 3.2 oz I&O: 07/01/18 07/02/18 07/03/18 06:59 06:59 06:59 Intake Total 1660 1120 480 Output Total 300 1050 Balance 1360 70 480 Result Diagrams: 07/02/18 11:13 07/02/18 08:38 Additional Labs: Accuchecks 07/02/18 07/02/18 07/01/18 10:45 05:34 20:30 POC Glucose 148 H 101 168 H 07/01/18 17:24 POC Glucose 139 H Phys Exam - Physical Examination Obese HEENT: moist MMs Neck: supple Respiratory: clear to auscultation bilateral Cardiovascular: RRR Gastrointestinal: soft Musculoskeletal: edema present Neurological: moves all 4 limbs Psychiatric: normal affect Dx/Plan (1) Shortness of breath Code(s): R06.02 - SHORTNESS OF BREATH Status: Acute Comment: likely due to diastolic heart failure (2) Acute diastolic CHF (congestive heart failure), NYHA class 3 Code(s): I50.31 - ACUTE DIASTOLIC (CONGESTIVE) HEART FAILURE Status: Acute Comment: continue furosemide. Pt sees Dr Cadet but does not know why. says she was on diuretics at home. 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 (3) Troponin I above reference range Code(s): R74.8 - ABNORMAL LEVELS OF OTHER SERUM ENZYMES Status: Chronic Comment: chronic elevation of troponin I, likely due to CKD. Pt denies any chest pain. (4) CKD (chronic kidney disease) stage 3, GFR 30-59 ml/min Code(s): N18.3 - CHRONIC KIDNEY DISEASE, STAGE 3 (MODERATE) Status: Chronic Comment: stable (5) Diabetes type 2, controlled Code(s): E11.9 - TYPE 2 DIABETES MELLITUS WITHOUT COMPLICATIONS Status: Chronic Qualifiers: Comment: controlled (6) Dyslipidemia Code(s): E78.5 - HYPERLIPIDEMIA, UNSPECIFIED Status: Chronic Comment: continue statin (7) GERD (gastroesophageal reflux disease) Code(s): K21.9 - GASTRO-ESOPHAGEAL REFLUX DISEASE WITHOUT ESOPHAGITIS Status: Chronic Comment: stable (8) Hypertension Code(s): I10 - ESSENTIAL (PRIMARY) HYPERTENSION Status: Chronic Qualifiers: Comment: Monitor vital signs, titrate antihypertensives as needed - Plan * . Review of Systems - Review of Systems Respiratory: SOB with Excertion. negative: Cough, Shortness of Breath, Pleuritic Pain, Wheezing Cardiovascular: negative: chest pain, palpitations, orthopnea, paroxysmal nocturnal dyspnea, edema, light headedness - Medications/Allergies Allergies/Adverse Reactions: Allergies Allergy/AdvReac Type Severity Reaction Status Date / Time Sulfa (Sulfonamide Allergy Verified 06/30/18 15:58 Antibiotics) sulfamethoxazole Allergy Verified 06/30/18 15:58 [From Bactrim] trimethoprim [From Bactrim] Allergy Verified 06/30/18 15:58 Medications: Current Medications Acetaminophen (Tylenol) 650 mg PO Q4H PRN PRN Reason: Headache/Fever/Mild Pain (1-3) Hydrocodone Bitart/Acetaminophen ([place] 5/325) 1 tab PO Q4H PRN PRN Reason: Moderate Pain (4-6) Hydrocodone Bitart/Acetaminophen ([place] 5/325) 2 tab PO Q4H PRN PRN Reason: Severe Pain (7-10) Last Admin: 07/02/18 14:31 Dose: 2 tab Albuterol Sulfate (Proventil Hfa) 2 puff INH Q4H PRN PRN Reason: Dyspnea Albuterol/Ipratropium (Duoneb) 3 ml NEB Q6H PRN PRN Reason: SOB &/or Wheezing Alprazolam (Xanax) 0.25 mg PO BIDPRN PRN PRN Reason: Anxiety Last Admin: 07/02/18 04:45 Dose: 0.25 mg Aspirin (Ecotrin) 81 mg PO DAILY [facility] Last Admin: 07/02/18 08:14 Dose: 81 mg Benzonatate (Tessalon) 100 mg PO Q6H PRN PRN Reason: Cough Bisacodyl (Dulcolax) 10 mg PO DAILYPRN PRN PRN Reason: Constipation Calcium Carbonate (Tums) 1,000 mg PO Q4H PRN PRN Reason: Heartburn or Indigestion Clonidine (Catapres) 0.1 mg PO Q4H PRN PRN Reason: SBP > 160____ Last Admin: 07/01/18 08:13 Dose: 0.1 mg Dextrose/Water (Dextrose 50%) 25 gm SLOW IVP PRN PRN PRN Reason: Hypoglycemia Enoxaparin Sodium (Lovenox) 40 mg SC 0900 [facility] Last Admin: 07/02/18 08:17 Dose: 40 mg Famotidine (Pepcid) 20 mg PO DAILY [facility] Last Admin: 07/02/18 08:15 Dose: 20 mg Glucagon (Glucagon) 1 mg IM PRN PRN PRN Reason: Hypoglycemia Guaifenesin (Robitussin Sf) 200 mg PO Q4H PRN PRN Reason: Cough Hydralazine HCl (Apresoline) 10 mg SLOW IVP Q4H PRN PRN Reason: SBP > 180 and HR < 70 Last Admin: 07/01/18 01:36 Dose: 10 mg Hydralazine HCl (Apresoline) 25 mg PO BID [facility] Last Admin: 07/02/18 08:16 Dose: 25 mg Dextrose/Water (D5w) 1,000 mls @ 0 mls/hr IV .Q0M PRN PRN Reason: Hypoglycemia Insulin Human Lispro (Humalog) 0 units SC .MODERATE SLIDING SC PRN PRN Reason: Moderate Correctional Scale Last Admin: 07/01/18 08:21 Dose: 4 units Insulin Human Lispro (Humalog) 0 units SC .BEDTIME SLIDING SC PRN PRN Reason: Bedtime Correctional Scale Last Admin: 06/30/18 21:18 Dose: 4 units Lisinopril (Zestril) [address] [facility] Last Admin: 07/02/18 08:15 Dose: 40 mg Metoprolol Tartrate (Lopressor) 25 mg PO BID [facility] Last Admin: 07/02/18 08:16 Dose: Not Given Nitroglycerin (Nitrostat) 0.4 mg SL Q5MIN PRN PRN Reason: Chest Pain Ondansetron HCl (Zofran) 4 mg IVP Q6H PRN PRN Reason: Nausea/Vomiting Paroxetine HCl (Paxil) 20 mg PO DAILY [facility] Last Admin: 07/02/18 08:16 Dose: 20 mg Pramipexole Dihydrochloride (Mirapex) 0.75 mg PO BID [facility] Last Admin: 07/02/18 08:15 Dose: 0.75 mg Prednisone (Prednisone) 20 mg PO [facility] Last Admin: 07/02/18 08:14 Dose: 20 mg Senna/Docusate Sodium (Senokot S) 2 tab PO BID PRN PRN Reason: Constipation Last Admin: 07/02/18 08:20 Dose: 2 tab Sodium Chloride ([place] Nasal [place] 0.65%) 0 ml EA NARE QIDPRN PRN PRN Reason: Nasal Congestion Tramadol HCl (Ultram) 50 mg PO Q4H PRN PRN Reason: Moderate Pain (4-6) Trazodone HCl (Desyrel) 50 mg PO HS PRN PRN Reason: Insomnia
[2018-07-03 05:16] LABS: Anion Gap 13 mmol/L (10-20); BUN (Urea Nitrogen) 41 mg/dL (9.8-20.1); Calc. Creatinine Clearance 46 mL/min (70-130); Calcium 9.1 mg/dL (7.8-10.44); Carbon Dioxide 33 mmol/L (23-31); Chloride 100 mmol/L (98-107); Estimated GFR-MDRD 35; Glucose 85 mg/dL (83-110); Sodium 142 mmol/L (136-145)
[2018-07-03 05:36] LABS: #Basophils 0.1 thou/uL (0.0-0.2); #Eosinphils 0.1 thou/uL (0.0-0.7); #Lymphocytes 5.2 thou/uL (1.20-3.40); #Monocytes 1.4 thou/uL (0.11-0.59); #Neutrophils 9.4 thou/uL (1.40-6.50); %Basophils 0.5 % (0.0-1.0); %Eosinophils 0.9 % (0.0-10.0); %Lymphocytes 32.3 % (21.0-51.0); %Monocytes 8.5 % (0.0-10.0); %Neutrophils 57.8 % (42.0-75.0); Hemoglobin 10.4 g/dL (12.0-16.0); Mean Corpuscular HGB CONC 30.9 g/dL (32.0-36.0); Mean Corpuscular Hemoglobin 27.4 pg (27.0-31.0); Mean Corpuscular Volume 88.7 fL (78.0-98.0); Platelet Count 515 thou/uL (130-400); RBC Distribution Width 17.1 % (11.5-14.5); Red Blood Cell (RBC) Count 3.78 mill/uL (4.20-5.40); White Blood Cell (WBC) Count 16.2 thou/uL (4.8-10.8)
[2018-07-03] MEDS: cloNIDine 0.1 MG TAB PO PRN (05:42)
[2018-07-03] MEDS ORDERED: Furosemide 40 MG TAB PO SCH (07:30)
[2018-07-03] MEDS: predniSONE 20 MG TAB PO SCH (08:34)
[2018-07-03] MEDS: Enoxaparin Sodium 40 MG/0.4 ML SYRINGE SC SCH ×2 (08:34→08:35)
[2018-07-03] MEDS: Pramipexole Di-HCl 0.25 MG TAB PO SCH (08:34)
[2018-07-03] MEDS: hydrALAZINE 25 MG TAB PO SCH (08:34)
[2018-07-03] MEDS: Aspirin 81 mg Enteric Coated Tablet PO SCH (08:35)
[2018-07-03] MEDS: Lisinopril 20 MG TAB PO SCH (08:35)
[2018-07-03] MEDS: PARoxetine 20 MG TAB PO SCH (08:35)
[2018-07-03] MEDS: Metoprolol Tartrate 25 MG TAB PO SCH (08:35)
[2018-07-03] MEDS: Famotidine 20 MG TAB PO SCH (08:36)
--- NOTE | 2018-07-03 09:33 | PRG ---
DATE OF SERVICE: 07/03/2018 SUBJECTIVE: She feels okay. Had no acute complaints, except for blood pressure being elevated. OBJECTIVE: VITAL SIGNS: Temperature 97.8, pulse 55, respirations 17, O2 saturation 94% on room air, blood pressure 149/65. HEENT: Unremarkable. NECK: No JVD. CHEST: Clear to auscultation. CARDIAC: S1-S2 regular. ABDOMEN: Soft. EXTREMITIES: No edema. ASSESSMENT: 1. Quiescent sarcoidosis. 2. Diastolic cardiac dysfunction. 3. Hypertension. 4. Anxiety. RECOMMENDATIONS: The patient is stable to go home from my standpoint. Her sarcoid has been managed by Dr. Griffiths by Dr. Suzi Mckeon, in the past. I think my desire would be to see her weaned off steroids slowly. However, they may know information about her sarcoid that I do not know and I would consult with them first. No further Pulmonary recommendations. Job ID: [id number]
[2018-07-03] MEDS: HYDROcodone/Acetaminophen 5/325 mg Tablet PO PRN (11:15)
[2018-07-03] MEDS: ALPRAZolam 0.25 MG TAB PO PRN (12:23)
[2018-07-03 16:28] VITALS: BP 153/70; TEMP 98.2
--- NOTE | 2018-07-03 16:33 | DIS ---
DATE OF ADMISSION: 06/30/2018 DATE OF DISCHARGE: 07/03/2018 PRIMARY CARE PROVIDER: Suzi Mckeon MD DISCHARGE DIAGNOSES: 1. Diastolic congestive heart failure exacerbation, NYHA stage III, ACC AHA class C. 2. Chronic kidney disease, stage 3. CONDITION OF THE PATIENT ON THE DAY OF DISCHARGE: Stable. I assessed Ms. Coburn on the day of discharge. She denies any chest pain. Shortness of breath is better. Vital signs are stable. S1 and S2 are heard, regular. Lungs are clear to auscultation bilaterally. CONSULTATIONS DURING THIS HOSPITALIZATION: Pulmonology, Dr. Pierce. DISCHARGE MEDICATIONS: 1. Furosemide 40 mg daily. 2. ProAir HFA 2 puffs every 4 hours as needed. 3. Tramadol 50 mg every 6 hours as needed. 4. Hydralazine 25 mg 2 times a day. 5. Lisinopril 40 mg daily. 6. 25 mg 2 times a day. 7. Paroxetine 20 mg daily. 8. Mirapex 0.75 mg 2 times a day. 9. Prednisone 20 mg 2 times a day. 10. Restoril 15 mg at bedtime. 11. Tramadol p.r.n. HOSPITAL COURSE: Ms. Coburn is a pleasant 77-year-old lady, who was admitted to [facility] on June 30, 2018, for shortness of breath. She was seen by Pulmonology Service. She was continued on prednisone for history of sarcoidosis. It was felt that her shortness of breath was most likely secondary to diastolic heart failure exacerbation. A 2D echocardiogram showed left ventricular ejection fraction of 60% to 65% and grade 1/3 diastolic dysfunction. She also had moderate concentric left ventricular hypertrophy, moderately dilated left atrium, mitral annular calcification, mild mitral regurgitation, aortic valve sclerosis with reduced excursion, and [id number] aortic regurgitation. She also had mild tricuspid regurgitation and elevated right ventricular systolic pressure estimated at 49 mmHg. She improved with diuretics. She was following a computer network support specialist, but she does not know why she was following cardiology. She has been advised to follow up with her computer network support specialist as an outpatient. On the day of discharge, Ms. Coburn has sodium 142, potassium 4, blood urea nitrogen 41, creatinine 1.46, white count 09469, hemoglobin 10.4, and platelet count of 515,000. Many thanks for allowing me to participate in your patient's care. Please feel free to contact me with any questions or concerns. DISCHARGE DESTINATION: Home. TIME SPENT: Total amount of time spent coordinating this discharge: 33 minutes. Job ID: [id number]
== END 2018-07-03 20:20 | disposition home or self-care (01) | DRG 291 ==
LOC: ERS 11:05 → 2NO 15:35
PROVIDERS: ADMIT Internal Medicine; ATTEND Internal Medicine
DX: I13.0 Hypertensive heart and chronic kidney disease with heart failure and stage 1 through stage 4 chronic kidney disease, or unspecified chronic kidney disease (principal); I50.33 Acute on chronic diastolic (congestive) heart failure; N17.9 Acute kidney failure, unspecified; E11.22 Type 2 diabetes mellitus with diabetic chronic kidney disease; N18.3 Chronic kidney disease, stage 3 (moderate); F32.9 Major depressive disorder, single episode, unspecified; I25.10 Atherosclerotic heart disease of native coronary artery without angina pectoris; G25.81 Restless legs syndrome; D86.9 Sarcoidosis, unspecified; E78.5 Hyperlipidemia, unspecified; K21.9 Gastro-esophageal reflux disease without esophagitis; E66.9 Obesity, unspecified; Z68.36 Body mass index [BMI] 36.0-36.9, adult; G47.33 Obstructive sleep apnea (adult) (pediatric); F41.9 Anxiety disorder, unspecified
CPT/HCPCS: 36415; 36416; 71045; 71275; 80048; 80053; 81003; 82550; 82553; 82805; 83605; 83690; 83880; 84484; 85025; 85379; 87040; 87633; 87798; 87804; 93005; 93306; 93798; 94644; 96361; 96365; 96367; 96375; J0360; J1100; J1650; J1940; J1956; J2920; J3475; J7611; J7620; Q9966

== ENCOUNTER 2018-07-05 22:01 | Inpatient (IN) | payer MEDICARE, BC ==
[2018-07-05 23:03] LABS: ALT (SGPT) 18 U/L (8-55); AST (SGOT) 18 U/L (5-34); Albumin 4.2 g/dL (3.4-4.8); Alkaline Phosphatase 151 U/L (40-150); Anion Gap 16 mmol/L (10-20); BUN (Urea Nitrogen) 50 mg/dL (9.8-20.1); Bilirubin, Total 0.2 mg/dL (0.2-1.2); Calc. Creatinine Clearance 0 mL/min (70-130); Calcium 9.6 mg/dL (7.8-10.44); Carbon Dioxide 30 mmol/L (23-31); Chloride 99 mmol/L (98-107); Estimated GFR-MDRD 33; Globulin 3.2 g/dL (2.4-3.5); Glucose 134 mg/dL (83-110); Potassium 4.3 mmol/L (3.5-5.1); Protein, Total 7.4 g/dL (6.0-8.3); Sodium 141 mmol/L (136-145)
[2018-07-05 23:04] LABS: Band 9 % (5-11); Hemoglobin 12.1 g/dL (12.0-16.0); Lymphocytes 5 % (21-51); MDiff Complete? YES; Mean Corpuscular HGB CONC 31.3 g/dL (32.0-36.0); Mean Corpuscular Hemoglobin 27.5 pg (27.0-31.0); Mean Corpuscular Volume 87.7 fL (78.0-98.0); Mean Platelet Volume 8.1 fL (7.4-10.4); Monocytes 4 % (0-10); Neutrophil 82 % (42-75); Nucleated RBC 2 % (0); Platelet Count 533 thou/uL (130-400); RBC Distribution Width 16.9 % (11.5-14.5); White Blood Cell (WBC) Count 13.7 thou/uL (4.8-10.8)
[2018-07-05] MEDS ORDERED: Dexamethasone 10 MG/ML VIAL ONE (23:27)
[2018-07-05] MEDS ORDERED: Albuterol Sulfate 2.5 mg/3 ml Neb ONE (23:35)
[2018-07-05] MEDS ORDERED: Aspirin Chewable 81 MG TAB ONE (23:36)
[2018-07-05 23:40] LABS: CKMB 1.9 ng/mL (0-6.6)
[2018-07-06 01:20] LABS: Troponin I 0.367 ng/mL (< 0.028)
[2018-07-06] MEDS ORDERED: Ondansetron PF 4 MG/2 ML Vial IVP PRN (01:25)
[2018-07-06] MEDS ORDERED: Sodium Chloride 0.9% 1,000 ML IV SCH (01:25)
[2018-07-06] MEDS ORDERED: Ondansetron ODT 4 MG TAB SL PRN (01:25)
[2018-07-06] MEDS ORDERED: Acetaminophen 325 MG TAB PO PRN (01:25)
[2018-07-06 01:40] VITALS: BMI 33.5
[2018-07-06 05:46] LABS: Critical Call Chem Troponin I RESULT DECREASING; Troponin I 0.301 ng/mL (< 0.028)
[2018-07-06 08:55] LABS: Anion Gap 20 mmol/L (10-20); BUN (Urea Nitrogen) 51 mg/dL (9.8-20.1); Calc. Creatinine Clearance 37 mL/min (70-130); Calcium 9.5 mg/dL (7.8-10.44); Carbon Dioxide 26 mmol/L (23-31); Chloride 98 mmol/L (98-107); Estimated GFR-MDRD 29; Glucose 196 mg/dL (83-110); Magnesium 2.1 mg/dL (1.6-2.6); Potassium 3.8 mmol/L (3.5-5.1); Sodium 140 mmol/L (136-145)
[2018-07-06] MEDS ORDERED: Furosemide 40 MG TAB PO SCH (09:00)
[2018-07-06] MEDS ORDERED: Senokot S 8.6-50 MG TAB PO PRN (09:09)
[2018-07-06] MEDS ORDERED: Dextrose 5% in Water 1,000 ML IV PRN (09:09)
[2018-07-06] MEDS ORDERED: Dextrose 50% Abboject 50 ML SYRINGE SLOW IVP PRN (09:09)
[2018-07-06] MEDS ORDERED: HumaLOG 300 UNITS/3 ML VIAL SC PRN ×2 (09:09)
--- NOTE | 2018-07-06 09:54 | HP ---
PRIMARY CARE PHYSICIAN: Suzi Mckeon MD CHIEF COMPLAINT: Worsening shortness of breath. HISTORY OF PRESENT ILLNESS: A 77-year-old lady with chronic intermittent respiratory distress, on home oxygen as needed; sarcoidosis, on chronic steroid therapy; coronary artery disease, status post stent placement; recurrent DVT, PE, status post IVC filter; diabetes; and anxiety disorder; who was just discharged from the hospital on July 03, 2018, following treatment for acute respiratory distress, which was thought to be due to diastolic heart failure and possible sarcoid flare up, now readmitted due to acute respiratory distress. The patient reportedly was short of breath when EMS arrived and they started her on BiPAP, which was later weaned down to nasal cannula oxygen supplementation. The patient reported that she suddenly developed shortness of breath as well as mild chest pain and was unable to ambulate due to shortness of breath. She denied fever, cough, or leg swelling. She reported palpitation and dysuria, but denied nausea, vomiting, headache, change in mental status, sputum production, hematuria, hematemesis, hematochezia, or change in bowel habit. In the emergency room, the patient was treated with aspirin, Decadron, and breathing treatment and was subsequently admitted for further evaluation and treatment. The patient admitted that she rarely uses her oxygen, preferring to use it only as needed, but she is just busy all the time that she forgets to use her oxygen. She also reported anxiety and sleep last night. During recent hospitalization, the patient was evaluated with CT angio, which however was negative for PE, but mediastinal adenopathy was noted. The patient reports feeling better at this time, but still reported exertional dyspnea. PAST MEDICAL HISTORY: 1. Sarcoidosis diagnosed about 17 years ago, on chronic steroids. 2. Type 2 diabetes. 3. Hypertension. 4. Restless legs syndrome. 5. Depression. 6. Anxiety. 7. Insomnia. 8. Chronic kidney disease, stage 3. 9. Recurrent DVT/PE, status post IVC filter placement. 10. Coronary artery disease. 11. Diastolic heart failure. 12. Pulmonary hypertension. PAST SURGICAL HISTORY: 1. Hysterectomy. 2. Right shoulder replacement. 3. Cardiac stent placement. 4. IVC filter placement. 5. Cervical spinal fusion. 6. Cholecystectomy. 7. Splenectomy. SOCIAL HISTORY: The patient is and lives at home. She reported that losing her son few years ago was a turning point in her life and she continues to think about it and cannot sleep at night because of this. She denied drug, tobacco, or alcohol use. FAMILY HISTORY: Significant for diabetes in mother and coronary artery disease in father. ALLERGIES: 1. SULFONAMIDES. 2. TRIMETHOPRIM. 3. BACTRIM. CURRENT HOME MEDICATIONS: 1. Furosemide 40 mg daily. 2. ProAir HFA 2 puffs every 4 hours p.r.n. 3. Tramadol 50 mg every 6 hours p.r.n. 4. Hydralazine 25 mg p.o. b.i.d. 5. Lisinopril 40 mg daily. 6. Paroxetine 20 mg daily. 7. Mirapex 0.75 mg p.o. b.i.d. 8. Prednisone 20 mg b.i.d. 9. Restoril 50 mg at bedtime. 10. Metformin 500 mg b.i.d. REVIEW OF SYSTEMS: Twelve-point review of system performed was negative other than pertinent positives and negatives included in the history of present illness. PHYSICAL EXAMINATION: VITAL SIGNS: Current vitals show temperature 98.2, pulse 101, respiratory rate 20, SpO2 of 95% on 2 L nasal cannula, and blood pressure 159/63. GENERAL: Obese female, in no obvious distress. Afebrile. Anicteric. Acyanotic. HEENT: Normocephalic, atraumatic. Pupils are equal and reacting to light. Oral mucosa is moist. NECK: Supple, nontender with good range of motion. No masses noted. CARDIOVASCULAR: Irregularly irregular rhythm and rate. Tachycardic. Normal heart sounds 1 and 2. RESPIRATORY: Fair air entry bilaterally with few adventitious sounds and transmitted sounds noted. No obvious rhonchi or use of accessory muscles appreciated. GASTROINTESTINAL: Abdomen is obese, soft, nontender, and nondistended with normal bowel sounds. EXTREMITIES: Grossly normal looking, atraumatic with no edema, erythema, or cyanosis. Distal pulses are palpable. NEUROLOGIC: Conscious and alert and oriented x3 with appropriate mental status. Cranial nerves II through XII are intact. The patient moves all extremities. DIAGNOSTIC DATA: CBC on July 05 showed WBC count of 13.7, hemoglobin of 12.1, MCV of 87.7, platelet of 533. Of note, the patient has chronic elevated WBC count. CMP showed sodium 141, potassium 4.3, chloride 99, carbon dioxide 30, anion gap 16, BUN 50, creatinine 1.54, glucose 134, calcium 9.6, total bilirubin 0.2, AST 18, ALT 19, alkaline phosphatase 151, total protein 7.4, and albumin 4.2. Cardiac enzymes showed troponin 0.344, CK-MB 1.9. Last troponin was 0.301. BNP is 219. No imaging was done during this hospitalization as yet. ASSESSMENT: 1. Acute respiratory insufficiency: This is episodic. She is clinically improved at this time. The patient admitted to severe anxiety and reported some palpitations. Paroxysmal supraventricular tachycardia, panic attack, possible differentials and this superimposed on the patient with pulmonary hypertension and diastolic heart failure would trigger acute cardiac decompensation. The patient also is not compliant with oxygen therapy at home. She clearly has features of pulmonary hypertension on both CT angio and echocardiogram recently performed. She is currently doing well with oxygen supplementation. 2. Sarcoidosis on chronic therapy with prednisone. There seems to be no acute flare. 3. Chronic diastolic heart failure with possible acute decompensation. Volume status seems euvolemic if not hypovolemic. However, acute tachycardia would lead to acute decompensation. The patient has preserved systolic function on recent echocardiogram performed on July 01, 2018. 4. Insomnia: The patient reported tossing and turning on her bed and cannot get quiet sleep, despite using Xanax and Restoril. 5. Hypertension: Control is fair. 6. Dysuria: The patient reported acute onset of dysuria, but denied hematuria. 7. Acute non-ST elevation myocardial infarction: Most likely type 2 from demand supply mismatch. Troponin on presentation was 0.3, but it has not trended up further. The patient reported chest pain, which has subsided at this time. 8. Type 2 diabetes mellitus: The patient is on metformin at home. 9. Pulmonary hypertension: Type is unclear, but seems to be related to sarcoidosis and chronic pulmonary embolism. 10. Chronic kidney disease, stage 3 with possible reversible component. 11. Anxiety and depression. 12. Restless legs syndrome. 13. Moderate obesity. 14. Chronic respiratory failure, on home oxygen. PLAN: 1. We will start the patient on antithrombotic therapy with Lovenox, aspirin, and Plavix. 2. We will get urinalysis and we will start the patient on antibiotics for UTI, if UA was suggestive. 3. We will hold IV fluid and stop diuretics for now as the patient seems euvolemic and monitor the patient. 4. Breathing treatment as needed will be provided. The patient was advised to be on oxygen therapy continuously. 5. The patient will benefit from pulmonary hypertension specialist for evaluation and treatment. 6. We will start the patient on low-dose amlodipine for blood pressure and pulmonary hypertension treatment. 7. We will start the patient on sliding scale insulin. 8. Steroid therapy will be continued. 9. We will start the patient on low-dose Seroquel for insomnia. 10. Code status: Full. 11. It is expected that the patient will be in hospital for at least 2 midnights. 12. We will consult Pulmonary for re-evaluation. Job ID: [id number]
[2018-07-06] MEDS ORDERED: predniSONE 20 MG TAB PO SCH (10:45)
[2018-07-06] MEDS ORDERED: Pramipexole Di-HCl 0.25 MG TAB PO SCH (10:45)
[2018-07-06] MEDS ORDERED: Metoprolol Tartrate 25 MG TAB PO SCH (10:45)
[2018-07-06] MEDS ORDERED: PARoxetine 20 MG TAB PO SCH (10:45)
[2018-07-06 10:56] LABS: Bilirubin Negative (Negative); Blood, Urine Negative (Negative); Clarity CLEAR (Clear); Glucose, Urine (Dipstick) Negative (Negative); Leukocyte Negative (Negative); Nitrite Negative (Negative); Protein, Urine (Dipstick) Negative (Neg-Trace); Specific Gravity, Urine 1.017 (1.002-1.036); Urobilinogen 0.2 mg/dL (0.2-1.0)
[2018-07-06 10:58] LABS: Bacteria/HPF None Seen HPF (None Seen); Hyaline Casts/LPF 0-3 HYALINE CAST LPF (0-3 Hyaline); Pathc Cast-AUWi Flag 0.27 (0-2.49); RBC/HPF 0-3 HPF (0-3); Squamous Epithelial None Seen HPF (0-3); WBC/HPF None Seen HPF (0-3)
[2018-07-06 11:01] LABS: Urine Culture Reflex No No
[2018-07-06] MEDS: traMADol HCl 50 MG TAB PO PRN (11:29)
[2018-07-06] MEDS: predniSONE 20 MG TAB PO SCH (16:26)
--- NOTE | 2018-07-06 17:10 | CON ---
DATE OF CONSULTATION: 07/06/2018 REASON FOR CONSULTATION: Shortness of breath. PRIMARY STEAM CONDITIONER OPERATOR: Jarrell Valdes MD. HISTORY OF PRESENT ILLNESS: Ms. Coburn is a very pleasant 77-year-old white female, who comes to the hospital for increased shortness of breath. She was at home, felt very anxious and went to what appears to be flash pulmonary edema. She checked her blood pressure, and it was about 200/100 range. She takes her home medications for hypertension which normally runs in the 130s to 140s, but has nothing for p.r.n. She called 911, where she was found to be hypoxic, in heart failure, placed on a BiPAP, and transferred over. Here, she had IV Lasix, and she has diuresed some, and she is feeling much better, she is back in room air. PAST MEDICAL HISTORY: 1. Sarcoidosis diagnosed about 17 years ago, on chronic steroids. 2. Type 2 diabetes. 3. Hypertension. 4. Restless legs syndrome. 5. Anxiety and depression. 6. Insomnia. 7. Chronic kidney disease stage 3. 8. Recurrent DVT and PE, status post IVC filter. 9. Coronary artery disease. 10. Diastolic heart failure. 11. Pulmonary hypertension. PAST SURGICAL HISTORY: 1. Hysterectomy. 2. Right shoulder replacement. 3. History of stenting in the past. 4. IVC filter. 5. Cervical spinal fusion. 6. Cholecystectomy. 7. Splenectomy. SOCIAL HISTORY: No alcohol, tobacco, or drugs. FAMILY HISTORY: Noncontributory from the mother's side. Coronary artery disease in father. OUTPATIENT MEDICATIONS: 1. Lasix a day. 2. ProAir. 3. Tramadol. 4. Hydralazine 25 mg b.i.d. 5. Lisinopril 40 mg a day. 6. Paroxetine. 7. Mirapex. 8. Prednisone 20 mg b.i.d. 9. Restoril. 10. Metformin 500 mg b.i.d. ALLERGIES: 1. SULFONAMIDES. 2. TRIMETHOPRIM. 3. BACTRIM. REVIEW OF SYSTEMS: A 12-point review of systems was done and was all negative unless stated in the history of present illness. PHYSICAL EXAMINATION: VITAL SIGNS: Temperature 98.7, pulse 68, respiratory rate 20, saturating 95% on room air, and blood pressure 137/64. GENERAL: Awake, alert, oriented x3, in no distress. HEENT: Normocephalic and atraumatic. NECK: Supple. LUNGS: Clear. CARDIOVASCULAR: S1 and S2. No S3 or S4. No murmurs. ABDOMEN: Soft. Positive bowel sounds. EXTREMITIES: No edema. SKIN: Warm and dry. LABORATORY DATA: Laboratory work was reviewed. White count of 13, hemoglobin of 12, hematocrit of 38, and platelet count of 533. Chemistry was reviewed. Troponin has been positive at 0.34, 0.36, and 0.30. Creatinine at 1.5, up to 1.6. This is around her baseline. UA was unremarkable. ASSESSMENT AND PLAN: 1. Acute on chronic diastolic heart failure. 2. Flash pulmonary edema. 3. Sarcoidosis. 4. Non-ST elevation myocardial infarction, mild troponin elevation, could be demand ischemia. PLAN: 1. She had an echocardiogram just a few days back. Her EF is 60% to 65%. She has not had any ischemic symptoms except for flash pulmonary edema which could be ischemic in nature. At this time, she has been diuresed, and she already feels better. She feels most of her issues are anxiety based. I do not believe she has had a heart catheterization before. She has had normal stress testing back in 2016, when she had a similar episode. We will continue to trend troponins, and if they start to up trend, she may be amenable for a heart catheterization. 2. We will follow. Job ID: [id number]
--- NOTE | 2018-07-06 19:18 | CON ---
DATE OF CONSULTATION: 07/06/2018 SERVICE: Pulmonary Medicine. REASON FOR CONSULTATION: Pulmonary hypertension. HISTORY OF PRESENT ILLNESS: The patient is a pleasant 77-year-old white female with past medical history significant for sarcoidosis. She was in her usual state of health. She was recently sent home from the hospital. She had increasing shortness of breath over a period of a couple of days and ultimately returned to the emergency department because of difficulty breathing. She got a dose of Lasix and had profound improvement in symptoms. She denies any current fevers, chills, nausea , vomiting, or diarrhea. Otherwise, she is in her usual state of health. She is not coughing or bringing up any sputum. She has been in remission for sarcoidosis for several years. PAST MEDICAL HISTORY: 1. Sarcoidosis. 2. Type 2 diabetes mellitus. 3. Hypertension. 4. Dyslipidemia. 5. Restless legs syndrome. 6. Major depressive disorder. 7. Anxiety disorder. 8. Insomnia. 9. Chronic kidney disease, stage 3. 10. Recurrent DVT/PE with IVC filter in place. 11. Coronary artery disease. 12. Chronic diastolic heart failure. 13. Pulmonary hypertension. PAST SURGICAL HISTORY: 1. Hysterectomy. 2. Right shoulder surgery. 3. Cardiac stent placement. 4. IVC filter. 5. Cervical spinal fusion. 6. Cholecystectomy. 7. Splenectomy. SOCIAL HISTORY: Negative for alcohol, tobacco, or illicit drug use. She lost her older son in 1987. Since then, she continues to think about him frequently. She has no exposure to chemicals, dust, asbestos, or tuberculosis. FAMILY HISTORY: Noncontributory. ALLERGIES: SULFONAMIDES, TRIMETHOPRIM, BACTRIM. MEDICATIONS: List of her inpatient medications was reviewed. No specific updates were made at this time. REVIEW OF SYSTEMS: General, head, ears, eyes, nose, throat, cardiovascular, respiratory, GI, , musculoskeletal, neurologic, and skin is negative except as mentioned in HPI. PHYSICAL EXAMINATION: VITAL SIGNS: Afebrile, pulse 68, blood pressure 137/64, respirations 20, and saturation 95% on room air. GENERAL: The patient is awake and alert, in no apparent distress. LUNGS: Crackles are present. No prolonged expiratory phase or wheezing appreciated. HEART: Normal rate. Regular. ABDOMEN: Soft, nontender, and nondistended. Bowel sounds are positive. MUSCULOSKELETAL: No cyanosis or clubbing. No pitting in the bilateral lower extremities. NEUROLOGIC: Grossly nonfocal. LABORATORY DATA: WBC 13.7, hemoglobin 12.1, and platelets 533,000. Neutrophil count is only 82% on top of 9% bands. D-dimer 0.9. A pH 7.38, pCO2 of 44, pO2 of 187. Creatinine 1.69, which is slightly above baseline. Basic metabolic profile is otherwise unremarkable. CRP 2.09. Troponin is downtrending to 0.3. Liver function studies were previously unremarkable except for an alkaline phosphatase that was minimally elevated. Urinalysis has been negative on multiple occasions. Recent blood cultures x2, influenza A and B, and respiratory virus panel were all unremarkable. IMAGING STUDIES: 1. Echocardiogram recently showed a 60% ejection fraction, 1/3 diastolic dysfunction, moderate concentric left ventricular hypertrophy is noted, dilated left atrium, and elevated right ventricular systolic pressures are appreciated. 2. CTA of the chest previously demonstrated a very generous left atrium. The right atrium is also minimally enlarged. The right ventricle is small compared to the left ventricle. There is ground-glass mosaic attenuation throughout bilateral lung morgan. Interstitial fullness is also noted. All consistent with possible volume overload versus mismatch perfusion. ASSESSMENT: 1. Pulmonary hypertension. 2. Obstructive sleep apnea, suspected. 3. Sarcoidosis, clinically quiescent for multiple years. 4. Chronic diastolic heart failure. DISCUSSION AND PLAN: Add an HIV to the morning laboratories. Her previous LUPE and rheumatoid factor were unremarkable. We will get a V/Q scan in the morning, looking for a "moth eaten" pattern. If this is present, chronic thromboembolic disease is very likely. The patient has not been on anticoagulation. She has had multiple PEs and DVTs. She has an IVC filter that is in place. If there is nothing to treat. She should undergo an outpatient polysomnogram. If this is unremarkable, she may require an outpatient right heart catheterization at a tertiary center that specializes in pulmonary hypertension. That being said, if she is stable clinically, after we get the V/Q scan, the rest of this can be arranged in the outpatient setting. I would like for her to follow up with Dr. Pierce when she leaves the hospital. 70 minutes have been devoted to this patient in various activities. I personally reviewed all imaging studies and laboratory data noted within this document. For fifty percent of this time, I was interacting with the patient at the bedside or coordinating care with the care team. For the remainder of the time I was immediately available to the patient in the hospital unit. Job ID: [id number] MTDD
[2018-07-06] MEDS: Pramipexole Di-HCl 0.25 MG TAB PO SCH (20:42)
[2018-07-06] MEDS: Aspirin 81 mg Enteric Coated Tablet PO SCH (20:44)
[2018-07-06] MEDS: Metoprolol Tartrate 25 MG TAB PO SCH (20:44)
[2018-07-06] MEDS: Enoxaparin Sodium 80 MG/0.8 ML SYRINGE SC SCH (20:44)
[2018-07-07 05:40] LABS: Iron 41 ug/dL (50-170); Iron Binding Capacity, Total 381 mcg/dL (265-497)
[2018-07-07 05:41] LABS: Anion Gap 12 mmol/L (10-20); BUN (Urea Nitrogen) 51 mg/dL (9.8-20.1); Calc. Creatinine Clearance 50 mL/min (70-130); Calcium 8.7 mg/dL (7.8-10.44); Carbon Dioxide 29 mmol/L (23-31); Chloride 102 mmol/L (98-107); Estimated GFR-MDRD 42; Glucose 127 mg/dL (83-110); Iron 40 ug/dL (50-170); Iron Binding Capacity, Total 376 mcg/dL (265-497); Sodium 139 mmol/L (136-145)
[2018-07-07 05:54] LABS: Hemoglobin 9.9 g/dL (12.0-16.0); Mean Corpuscular HGB CONC 31.2 g/dL (32.0-36.0); Mean Corpuscular Hemoglobin 27.3 pg (27.0-31.0); Mean Corpuscular Volume 87.5 fL (78.0-98.0); Mean Platelet Volume 8.1 fL (7.4-10.4); Platelet Count 434 thou/uL (130-400); RBC Distribution Width 16.8 % (11.5-14.5); Red Blood Cell (RBC) Count 3.61 mill/uL (4.20-5.40); White Blood Cell (WBC) Count 20.6 thou/uL (4.8-10.8)
[2018-07-07 05:55] LABS: Band 4 % (5-11); Lymphocytes 10 % (21-51); MDiff Complete? YES; Monocytes 5 % (0-10); Neutrophil 81 % (42-75)
--- NOTE | 2018-07-07 08:12 | PDOC.PN ---
- Subjective Encounter Start Date: 07/07/18 Encounter Start Time: 08:10 Subjective: Feeling better. breathing a lot better. Denied chest pain, cough or fever. -: Slept better last night though for a very short period. - Objective Resuscitation Status - Order Detail: 07/06/18 09:09 Resuscitation Status Routine Resuscitation Status: FULL: Full Resuscitation Vital Signs & Weight: Vital Signs (12 hours) Temp Pulse Resp BP BP Pulse Ox 07/07/18 07:14 98.4 F 66 18 155/69 H 98 07/07/18 04:00 97.6 F 61 19 138/59 L 95 Weight Weight 183 lb I&O: 07/06/18 07/07/18 07/08/18 06:59 06:59 06:59 Intake Total 880 240 Output Total 800 900 Balance 80 -660 Result Diagrams: 07/07/18 05:16 07/07/18 05:16 Additional Labs: Accuchecks 07/07/18 07/06/18 07/06/18 05:54 20:29 16:41 POC Glucose 153 H 157 H 122 H 07/06/18 10:36 POC Glucose 249 H Phys Exam - Physical Examination Constitutional: NAD HEENT: PERRLA, moist MMs Neck: no JVD, supple fair air entry bilaterally with few crackles on the bases especially on R Cardiovascular: RRR soft systolic murmur noted Gastrointestinal: soft, non-tender, no distention, positive bowel sounds Musculoskeletal: no edema, pulses present Neurological: non-focal, moves all 4 limbs Psychiatric: A&O x 3 Dx/Plan (1) Acute respiratory insufficiency Code(s): R06.89 - OTHER ABNORMALITIES OF BREATHING Status: Acute (2) Acute diastolic CHF (congestive heart failure), NYHA class 3 Code(s): I50.31 - ACUTE DIASTOLIC (CONGESTIVE) HEART FAILURE Status: Acute Comment: continue furosemide. Pt sees Dr Cadet but does not know why. says she was on diuretics at home. Pt to follow up with her paint and table edger on discharge. (3) Acute non-ST elevation myocardial infarction (NSTEMI) Code(s): I21.4 - NON-ST ELEVATION (NSTEMI) MYOCARDIAL INFARCTION Status: Acute (4) Pulmonary HTN Code(s): I27.20 - PULMONARY HYPERTENSION, UNSPECIFIED Status: Acute (5) Insomnia Code(s): G47.00 - INSOMNIA, UNSPECIFIED Status: Acute (6) Iron deficiency anemia Code(s): D50.9 - IRON DEFICIENCY ANEMIA, UNSPECIFIED Status: Acute (7) Restless leg syndrome Status: Acute (8) Acute kidney failure Status: Acute Comment: improving, likely multifactorial due to medications, hypovolemia and dehydration, avoid nephrotoxic meds and contrast dye, overall improving (9) Anxiety and depression Code(s): F41.9 - ANXIETY DISORDER, UNSPECIFIED; F32.9 - MAJOR DEPRESSIVE DISORDER, SINGLE EPISODE, UNSPECIFIED Status: Chronic (10) CKD (chronic kidney disease) stage 3, GFR 30-59 ml/min Code(s): N18.3 - CHRONIC KIDNEY DISEASE, STAGE 3 (MODERATE) Status: Chronic Comment: stable (11) Diabetes type 2, controlled Code(s): E11.9 - TYPE 2 DIABETES MELLITUS WITHOUT COMPLICATIONS Status: Chronic Qualifiers: Comment: controlled (12) GERD (gastroesophageal reflux disease) Code(s): K21.9 - GASTRO-ESOPHAGEAL REFLUX DISEASE WITHOUT ESOPHAGITIS Status: Chronic Comment: stable (13) Hypertension Code(s): I10 - ESSENTIAL (PRIMARY) HYPERTENSION Status: Chronic Qualifiers: Comment: Monitor vital signs, titrate antihypertensives as needed (14) Obesity (BMI 30-39.9) Code(s): E66.9 - OBESITY, UNSPECIFIED Status: Chronic (15) Sarcoidosis Code(s): D86.9 - SARCOIDOSIS, UNSPECIFIED Status: Chronic - Plan Increase amlodipine to 10 daily. -: Restart lasix. monitor renal function with restart of lasix. -: Replete iron store with venofer 500 mg IV. start oral supplementation -: get V/Q as ordered by Pulm. Restart anxiolytic -: Continue other treatments. Increase seroquel to 25 at bed time. * .
[2018-07-07] MEDS ORDERED: Iron Sucrose Complex 500 MG in Sodium Chloride 0.9% 250 ML 250 ML IVPB SCH ×2 (08:15→10:15)
[2018-07-07] MEDS: Pramipexole Di-HCl 0.25 MG TAB PO SCH ×2 (08:36→21:39)
[2018-07-07] MEDS: Metoprolol Tartrate 25 MG TAB PO SCH ×2 (08:36→21:39)
[2018-07-07] MEDS: PARoxetine 20 MG TAB PO SCH (08:36)
[2018-07-07] MEDS: Enoxaparin Sodium 80 MG/0.8 ML SYRINGE SC SCH ×2 (08:37→22:46)
[2018-07-07] MEDS: predniSONE 20 MG TAB PO SCH ×2 (08:37→16:21)
[2018-07-07] MEDS: Aspirin 81 mg Enteric Coated Tablet PO SCH ×2 (08:37→21:39)
[2018-07-07] MEDS: Clopidogrel Bisulfate 75 MG TAB PO SCH (08:37)
[2018-07-07 08:50] LABS: Troponin I 0.186 ng/mL (< 0.028)
[2018-07-07] MEDS ORDERED: Amlodipine 5 MG TAB PO SCH (09:00)
[2018-07-07] MEDS: Furosemide 40 MG TAB PO SCH (10:54)
[2018-07-07] MEDS: Amlodipine 10 MG TAB PO SCH (10:54)
--- NOTE | 2018-07-07 11:10 | NM ---
NUCLEAR MEDICINE VENTILATION PERFUSION STUDY: Date: 07/07/18 COMPARISON: Chest x-ray done today. HISTORY: Patient has history of chronic thromboembolic disease, shortness of breath. FINDINGS: The ventilation portion of the study was performed using 11.3 mCi Xenon-133 gas. This shows some mild air trapping, which is more prominent in the left lung and more in the left base. The perfusion port ion of the examination was performed using 6.4 mCi 99m-technetium MAA. This demonstrates a fairly nor mal distribution of the radiopharmaceutical. IMPRESSION: Findings compatible with low probability of pulmonary embolus. POS: [facility]
--- NOTE | 2018-07-07 11:11 | RAD ---
PA AND LATERAL CHEST: Date: 07/07/18 HISTORY: Shortness of breath. COMPARISON: 09/10/17 study. FINDINGS: Heart size is enlarged. Atherosclerotic changes of aorta. Lungs are clear of any infiltrative process . Vertebroplasty changes are noted. The bones appear demineralized. Postoperative changes of both margarito ulders are noted. IMPRESSION: Cardiomegaly with some chronic appearing lung change. POS: [facility]
--- NOTE | 2018-07-07 14:54 | PRG ---
DATE OF SERVICE: SERVICE: Pulmonary Medicine. INTERVAL HISTORY: The patient is doing outstanding from respiratory standpoint. Breathing comfortably. Denies any chest discomfort, nausea, or vomiting. She is not coughing. She is not bringing up any sputum. She went down for V/Q scan. HIV was drawn this morning. Results are still pending. PHYSICAL EXAMINATION: VITAL SIGNS: Afebrile, pulse 60, blood pressure 142/58, respirations 18, saturation 94% on room air. GENERAL: The patient is awake and alert, in no apparent distress. LUNGS: Decent air entry. There is no prolonged expiratory phase. Minimal dependent crackles are present. HEART: Normal rate and regular. ABDOMEN: Soft, nontender, nondistended. Bowel sounds are positive. MUSCULOSKELETAL: No cyanosis or clubbing. No pitting in the bilateral lower extremities. NEUROLOGIC: Grossly nonfocal. LABORATORY DATA: WBC 20.1, hemoglobin 9.9, platelets 434,000. Creatinine 1.24 and gently downtrending. Basic metabolic profile is otherwise unremarkable. Iron saturation 11%, ferritin 24. Troponin 0.18, which is beautifully downtrending. IMAGING STUDIES: V/Q scan demonstrates findings compatible with low probability of pulmonary emboli. There does not seem to be a chronic thromboembolic pattern. ASSESSMENT: 1. Pulmonary hypertension, likely multifactorial. 2. History of deep vein thrombosis/pulmonary embolism with IVC filter in place. 3. Obstructive sleep apnea, suspected. 4. Sarcoidosis, clinically quiescent for multiple years. 5. Chronic diastolic heart failure. DISCUSSION AND PLAN: Previous LUPE and rheumatoid factor were unremarkable. V/Q scan did not show classic pattern of chronic thromboembolic disease. HIV is currently pending. She is free to follow up with Dr. Pierce in the outpatient setting. He will likely do nocturnal oximetry, or polysomnogram depending on her degree of sleepiness. Ultimately, a right heart catheterization may be indicated at tertiary pulmonary hypertension center. That being said, this will be for an outpatient evaluation. Dr. Pierce will assume care in the morning if the patient remains inhouse. Job ID: [id number]
[2018-07-07] MEDS: traMADol HCl 50 MG TAB PO PRN (15:31)
--- NOTE | 2018-07-07 16:52 | PDOC.CTH ---
Cardiology Progress Note - Subjective Doing better. - Objective Vital Signs Temp Pulse Resp BP BP Pulse Ox 07/07/18 15:27 98.2 F 61 17 148/62 H 94 L 07/07/18 11:26 98.4 F 60 18 142/58 H 94 L 07/07/18 07:35 97 07/07/18 07:14 98.4 F 66 18 155/69 H 98 Weight 183 lb 07/06/18 07/07/18 07/08/18 06:59 06:59 06:59 Intake Total 880 240 Output Total 800 900 Balance 80 -660 - Physical Examination General/Neuro: alert & oriented x3, NAD Neck: no JVD present Lungs: unlabored respirations Heart: RRR Abdomen: NT/ND Extremities: other: (no edema) - Telemetry Telemetry Rhythm: NSR - Labs Result Diagrams: 07/07/18 05:16 07/07/18 05:16 Troponin/CKMB CK-MB (CK-2) 1.9 ng/mL (0-6.6) 07/05/18 22:29 Troponin I 0.186 ng/mL (< 0.028) H 07/07/18 05:16 - Assessment/Plan 1. Acute on chronic diastolic heart failure. 2. Flash pulmonary edema. 3. Sarcoidosis. 4. NSTEMI PLAN - She had mild elevated troponins already downtrending. - Currently I would hold off on a LHC given her drop in hgb. - Her creatinine is back down and better. - She is not having any anginal symptoms. - Will monitor for now.
[2018-07-07] MEDS: ALPRAZolam 0.25 MG TAB PO PRN (21:38)
[2018-07-08 06:53] LABS: HIV (1/2) Antibody/Antigen Non-Reactive (NonReactive); HIV 1/2 INDEX 0.13 S/CO (<1.00)
[2018-07-08] MEDS: Amlodipine 10 MG TAB PO SCH (08:27)
[2018-07-08] MEDS: predniSONE 20 MG TAB PO SCH (08:27)
[2018-07-08] MEDS: PARoxetine 20 MG TAB PO SCH (08:27)
[2018-07-08] MEDS: Clopidogrel Bisulfate 75 MG TAB PO SCH (08:27)
[2018-07-08] MEDS: Pramipexole Di-HCl 0.25 MG TAB PO SCH ×2 (08:28→20:31)
[2018-07-08] MEDS: Furosemide 40 MG TAB PO SCH (08:28)
[2018-07-08] MEDS: Metoprolol Tartrate 25 MG TAB PO SCH ×2 (08:28→20:33)
[2018-07-08] MEDS: Aspirin 81 mg Enteric Coated Tablet PO SCH ×2 (08:28→20:33)
--- NOTE | 2018-07-08 09:06 | PRG ---
DATE OF SERVICE: 07/08/2018 SUBJECTIVE: The patient is feeling well, had no acute complaints. PHYSICAL EXAMINATION: VITAL SIGNS: Temperature 98.7, pulse 50, respirations 16, O2 saturations 94% on room air, and blood pressure 171/72. HEENT: Unremarkable. NECK: No JVD. CHEST: Clear to auscultation. CARDIAC: S1, S2. Regular. ABDOMEN: Soft. EXTREMITIES: No edema. ASSESSMENT: 1. Mild pulmonary hypertension. 2. 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 3. Obstructive sleep apnea. 4. Sarcoidosis, quiescent. 5. Diastolic heart failure. PLAN: At some point in the future, she will need a sleep testing. I am not really sure what to think about her acute complaints as she improves rapidly upon admission to the hospital. I do wonder about there being a psychiatric component. We will follow with you. Job ID: [id number]
[2018-07-08] MEDS ORDERED: Ondansetron PF 4 MG/2 ML Vial IVP SCH (10:00)
--- NOTE | 2018-07-08 15:35 | PDOC.PN ---
- Subjective Encounter Start Date: 07/08/18 Encounter Start Time: 11:25 Subjective: no sob or chest pain -: feels a bit nauseous this am -: no abd pain, is amb in room - Objective Resuscitation Status - Order Detail: 07/06/18 09:09 Resuscitation Status Routine Resuscitation Status: FULL: Full Resuscitation MAR Reviewed: Yes Vital Signs & Weight: Vital Signs (12 hours) Temp Pulse Resp BP BP Pulse Ox 07/08/18 11:15 97.7 F 52 L 16 139/60 92 L 07/08/18 07:20 98.7 F 50 L 16 171/72 H 94 L 07/08/18 03:54 97.1 F L 57 L 16 177/75 H 95 Weight Weight 186 lb I&O: 07/07/18 07/08/18 07/09/18 06:59 06:59 06:59 Intake Total 240 1620 Output Total 900 1900 Balance -660 -280 Result Diagrams: 07/07/18 05:16 07/07/18 05:16 Additional Labs: Accuchecks 07/08/18 07/08/18 07/07/18 12:17 05:39 20:33 POC Glucose 133 H 118 H 132 H 07/07/18 17:05 POC Glucose 125 H Phys Exam - Physical Examination HEENT: PERRLA, moist MMs Neck: no JVD, supple Respiratory: no wheezing, no rales Cardiovascular: RRR, no significant murmur Gastrointestinal: soft, non-tender, positive bowel sounds Musculoskeletal: no edema, pulses present Neurological: non-focal, moves all 4 limbs Psychiatric: normal affect, A&O x 3 Dx/Plan (1) Dyspnea Code(s): R06.00 - DYSPNEA, UNSPECIFIED Status: Acute Qualifiers: Dyspnea type: dyspnea on exertion Qualified Code(s): R06.09 - Other forms of dyspnea Comment: likely multifactorial (2) JOSE ALFREDO (acute kidney injury) Code(s): N17.9 - ACUTE KIDNEY FAILURE, UNSPECIFIED Status: Acute (3) Acute diastolic CHF (congestive heart failure), NYHA class 3 Code(s): I50.31 - ACUTE DIASTOLIC (CONGESTIVE) HEART FAILURE Status: Acute (4) Iron deficiency anemia Code(s): D50.9 - IRON DEFICIENCY ANEMIA, UNSPECIFIED Status: Chronic Qualifiers: Iron deficiency anemia type: unspecified iron deficiency Qualified Code(s) : D50.9 - Iron deficiency anemia, unspecified (5) Pulmonary HTN Code(s): I27.20 - PULMONARY HYPERTENSION, UNSPECIFIED Status: Chronic (6) Restless leg syndrome Status: Chronic (7) Demand ischemia of myocardium Code(s): I24.8 - OTHER FORMS OF ACUTE ISCHEMIC HEART DISEASE Status: Acute (8) Anxiety and depression Code(s): F41.9 - ANXIETY DISORDER, UNSPECIFIED; F32.9 - MAJOR DEPRESSIVE DISORDER, SINGLE EPISODE, UNSPECIFIED Status: Chronic (9) CKD (chronic kidney disease) stage 3, GFR 30-59 ml/min Code(s): N18.3 - CHRONIC KIDNEY DISEASE, STAGE 3 (MODERATE) Status: Chronic Comment: stable (10) Diabetes type 2, controlled Code(s): E11.9 - TYPE 2 DIABETES MELLITUS WITHOUT COMPLICATIONS Status: Chronic Qualifiers: Diabetes mellitus correction insulin use: without termite control service representative use Diabetes mellitus complication status: with kidney complications Diabetes mellitus complication detail: with chronic kidney disease Chronic kidney disease stage : stage 3 (moderate) Qualified Code(s): E11.22 - Type 2 diabetes mellitus with diabetic chronic kidney disease; N18.3 - Chronic kidney disease, stage 3 ( moderate) (11) Dyslipidemia Code(s): E78.5 - HYPERLIPIDEMIA, UNSPECIFIED Status: Chronic Comment: continue statin (12) GERD (gastroesophageal reflux disease) Code(s): K21.9 - GASTRO-ESOPHAGEAL REFLUX DISEASE WITHOUT ESOPHAGITIS Status: Chronic Comment: stable (13) Hypertension Code(s): I10 - ESSENTIAL (PRIMARY) HYPERTENSION Status: Chronic Qualifiers: (14) Obesity (BMI 30-39.9) Code(s): E66.9 - OBESITY, UNSPECIFIED Status: Chronic (15) Sarcoidosis Code(s): D86.9 - SARCOIDOSIS, UNSPECIFIED Status: Chronic - Plan is on asp, plavix, lasix, norvasc, lopressor -: will reduce prednisone dose -: jose alfredo is slowly getting better -: HH with PT/OT and nursing on discharge -: labs in am, likely dc plan in am home with HH * . outpt f/u with is on paxil, seroquel and meropex, PCP to address if she needs all of it. Review of Systems - Medications/Allergies Allergies/Adverse Reactions: Allergies Allergy/AdvReac Type Severity Reaction Status Date / Time Sulfa (Sulfonamide Allergy Verified 07/06/18 02:04 Antibiotics) sulfamethoxazole Allergy Verified 07/06/18 02:04 [From Bactrim] trimethoprim [From Bactrim] Allergy Verified 07/06/18 02:04 Medications: Current Medications Alprazolam (Xanax) 0.25 mg PO BIDPRN PRN PRN Reason: Anxiety Last Admin: 07/07/18 21:38 Dose: 0.25 mg Amlodipine Besylate (Norvasc) 10 mg PO DAILY [facility] [place] Last Admin: 07/08/18 08:27 Dose: 10 mg Aspirin (Ecotrin) 81 mg PO BID [facility] [place] Last Admin: 07/08/18 08:28 Dose: 81 mg Clopidogrel Bisulfate (Plavix) 75 mg PO DAILY [facility] Last Admin: 07/08/18 08:27 Dose: 75 mg Dextrose/Water (Dextrose 50%) 25 gm SLOW IVP PRN PRN PRN Reason: Hypoglycemia Furosemide (Lasix) 40 mg PO DAILY [facility] [place] Last Admin: 07/08/18 08:28 Dose: 40 mg Glucagon (Glucagon) 1 mg IM PRN PRN PRN Reason: Hypoglycemia Dextrose/Water (D5w) 1,000 mls @ 0 mls/hr IV .Q0M PRN PRN Reason: Hypoglycemia Insulin Human Lispro (Humalog) 0 units SC .MODERATE SLIDING SC PRN PRN Reason: Moderate Correctional Scale Last Admin: 07/06/18 14:51 Dose: 4 unit Insulin Human Lispro (Humalog) 0 units SC .BEDTIME SLIDING SC PRN PRN Reason: Bedtime Correctional Scale Metoprolol Tartrate (Lopressor) 25 mg PO BID [facility] [place] Last Admin: 07/08/18 08:28 Dose: 25 mg Paroxetine HCl (Paxil) 20 mg PO DAILY [facility] [place] Last Admin: 07/08/18 08:27 Dose: 20 mg Pramipexole Dihydrochloride (Mirapex) 0.75 mg PO BID [facility] [place] Last Admin: 07/08/18 08:28 Dose: 0.75 mg Prednisone (Prednisone) 20 mg PO BID[facility] Last Admin: 07/08/18 08:27 Dose: 20 mg Quetiapine Fumarate (Seroquel) 25 mg PO [facility] Last Admin: 07/07/18 21:39 Dose: 25 mg Senna/Docusate Sodium (Senokot S) 2 tab PO BIDPRN PRN PRN Reason: Constipation Tramadol HCl (Ultram) 100 mg PO Q6H PRN PRN Reason: Pain>4 Last Admin: 07/07/18 15:31 Dose: 100 mg
[2018-07-08] MEDS ORDERED: Communication Order-Pharmacy FS SCH (17:30)
--- NOTE | 2018-07-08 17:41 | PRG ---
DATE OF SERVICE: 07/08/2018 SUBJECTIVE: In general, no current complaints. She had an episode of 4 beats of nonsustained VT. Hemoglobin appears stable at 9.9. OBJECTIVE: VITAL SIGNS: Blood pressure 130/60, pulse 52, and temperature 98.1. LUNGS: Clear to auscultation. HEART: Regular rate and rhythm. ABDOMEN: Soft, nontender, and nondistended. EXTREMITIES: No edema. LABORATORY DATA: Creatinine 1.24, which is down from 1.69. IMPRESSION: 1. Shortness of breath. 2. Malignant hypertension. 3. Type 2 myocardial infarction. RECOMMENDATION: Ms. Coburn's troponin did increase to 0.3. She also has nonsustained VT. She has had a normal stress test in 2016. Therefore, recommend coronary angiography with possible PCI. I discussed the procedure, risks included, but not limited to . All questions answered. Given the above, the patient agreed to proceed with above procedure. medications, and we will proceed with a drug-coated stent if needed. Further recommendations pending the above. Job ID: [id number]
[2018-07-08] MEDS: traMADol HCl 50 MG TAB PO PRN (20:33)
[2018-07-08] MEDS: ALPRAZolam 0.25 MG TAB PO PRN (22:32)
[2018-07-09] MEDS ORDERED: Sodium Chloride 0.9% 1,000 ML IV SCH ×2 (04:00→06:00)
[2018-07-09] MEDS: Aspirin 81 mg Enteric Coated Tablet PO SCH (06:02)
[2018-07-09] MEDS: Amlodipine 10 MG TAB PO SCH (06:03)
[2018-07-09] MEDS: Furosemide 40 MG TAB PO SCH (06:03)
[2018-07-09] MEDS: Metoprolol Tartrate 25 MG TAB PO SCH (06:03)
[2018-07-09] MEDS: Pramipexole Di-HCl 0.25 MG TAB PO SCH (06:03)
[2018-07-09] MEDS: Clopidogrel Bisulfate 75 MG TAB PO SCH (06:04)
[2018-07-09] MEDS: PARoxetine 20 MG TAB PO SCH (06:04)
[2018-07-09] MEDS ORDERED: Midazolam HCl 2 mg/2 ml Vial ONE (06:33)
[2018-07-09] MEDS ORDERED: Fentanyl 100 MCG/2 ML VIAL ONE (06:34)
[2018-07-09 06:41] LABS: #Eosinphils 0.1 thou/uL (0.0-0.7); #Lymphocytes 3.6 thou/uL (1.20-3.40); #Monocytes 1.4 thou/uL (0.11-0.59); #Neutrophils 9.1 thou/uL (1.40-6.50); %Basophils 0.3 % (0.0-1.0); %Lymphocytes 25.3 % (21.0-51.0); %Monocytes 9.6 % (0.0-10.0); %Neutrophils 63.7 % (42.0-75.0); Hemoglobin 10.2 g/dL (12.0-16.0); Mean Corpuscular HGB CONC 30.8 g/dL (32.0-36.0); Mean Corpuscular Hemoglobin 27.3 pg (27.0-31.0); Mean Corpuscular Volume 88.8 fL (78.0-98.0); Mean Platelet Volume 8.3 fL (7.4-10.4); Platelet Count 429 thou/uL (130-400); RBC Distribution Width 16.6 % (11.5-14.5); Red Blood Cell (RBC) Count 3.73 mill/uL (4.20-5.40); White Blood Cell (WBC) Count 14.3 thou/uL (4.8-10.8)
[2018-07-09 07:05] LABS: Anion Gap 10 mmol/L (10-20); BUN (Urea Nitrogen) 47 mg/dL (9.8-20.1); Calc. Creatinine Clearance 40 mL/min (70-130); Calcium 8.9 mg/dL (7.8-10.44); Carbon Dioxide 37 mmol/L (23-31); Chloride 99 mmol/L (98-107); Estimated GFR-MDRD 32; Glucose 80 mg/dL (83-110); Sodium 142 mmol/L (136-145)
[2018-07-09] MEDS ORDERED: predniSONE 5 MG TAB PO SCH (08:00)
[2018-07-09] MEDS ORDERED: Regadenoson 0.4 MG/5 ML SYRINGE ONE (08:26)
[2018-07-09 11:51] VITALS: BP 119/56; TEMP 97.4
--- NOTE | 2018-07-09 12:06 | NM ---
FStress only nuclear medicine myocardial perfusion scan: 07/09/2018 COMPARISON: None HISTORY: Shortness of breath TECHNIQUE: SPECT imaging of the left ventricular myocardium obtained during stress following the intr avenous administration of 31.9 mCi technetium 99m labeled sestamibi FINDINGS: No perfusion defect noted on SPECT imaging. Left ventricular wall motion appears normal. ED V is 125 mL and ESV is 41 mL. Left ventricular ejection fraction is 67%. IMPRESSION: Unremarkable stress only myocardial perfusion scan.
--- NOTE | 2018-07-09 14:59 | PDOC.PN ---
- Subjective Encounter Start Date: 07/09/18 Encounter Start Time: 12:00 Subjective: had stress test this am -: feels good now -: family at bedside - Objective Resuscitation Status - Order Detail: 07/06/18 09:09 Resuscitation Status Routine Resuscitation Status: FULL: Full Resuscitation MAR Reviewed: Yes Vital Signs & Weight: Vital Signs (12 hours) Temp Pulse Resp BP BP BP Pulse Ox 07/09/18 11:57 49 L 20 93 L 07/09/18 11:15 97.4 F L 66 18 119/56 L 94 L 07/09/18 07:05 98.6 F 47 L 16 124/58 L 95 07/09/18 06:03 51 L 150/70 H 07/09/18 02:59 98.2 F 51 L 18 150/70 H 93 L Weight Weight 181 lb 9.6 oz I&O: 07/08/18 07/09/18 07/10/18 06:59 06:59 06:59 Intake Total 1620 890 Output Total 1900 1050 Balance -280 -160 Result Diagrams: 07/09/18 06:09 07/09/18 06:09 Additional Labs: Accuchecks 07/09/18 07/09/18 07/08/18 11:21 05:50 20:28 POC Glucose 112 H 86 117 H 07/08/18 17:04 POC Glucose 124 H Phys Exam - Physical Examination HEENT: PERRLA, moist MMs Neck: no JVD, supple Respiratory: no wheezing, no rales Cardiovascular: RRR, no significant murmur Gastrointestinal: soft, non-tender, positive bowel sounds Musculoskeletal: no edema, pulses present Neurological: non-focal, moves all 4 limbs Psychiatric: normal affect, A&O x 3 Dx/Plan (1) Dyspnea Code(s): R06.00 - DYSPNEA, UNSPECIFIED Status: Acute Qualifiers: Dyspnea type: dyspnea on exertion Qualified Code(s): R06.09 - Other forms of dyspnea Comment: likely multifactorial (2) JOSE ALFREDO (acute kidney injury) Code(s): N17.9 - ACUTE KIDNEY FAILURE, UNSPECIFIED Status: Acute (3) Acute diastolic CHF (congestive heart failure), NYHA class 3 Code(s): I50.31 - ACUTE DIASTOLIC (CONGESTIVE) HEART FAILURE Status: Acute (4) Iron deficiency anemia Code(s): D50.9 - IRON DEFICIENCY ANEMIA, UNSPECIFIED Status: Chronic Qualifiers: Iron deficiency anemia type: unspecified iron deficiency Qualified Code(s) : D50.9 - Iron deficiency anemia, unspecified (5) Pulmonary HTN Code(s): I27.20 - PULMONARY HYPERTENSION, UNSPECIFIED Status: Chronic (6) Restless leg syndrome Status: Chronic (7) Anxiety and depression Code(s): F41.9 - ANXIETY DISORDER, UNSPECIFIED; F32.9 - MAJOR DEPRESSIVE DISORDER, SINGLE EPISODE, UNSPECIFIED Status: Chronic (8) CKD (chronic kidney disease) stage 3, GFR 30-59 ml/min Code(s): N18.3 - CHRONIC KIDNEY DISEASE, STAGE 3 (MODERATE) Status: Chronic Comment: stable (9) Diabetes type 2, controlled Code(s): E11.9 - TYPE 2 DIABETES MELLITUS WITHOUT COMPLICATIONS Status: Chronic Qualifiers: Diabetes mellitus intermediate insulin use: without lay out technician use Diabetes mellitus complication status: with kidney complications Diabetes mellitus complication detail: with chronic kidney disease Chronic kidney disease stage : stage 3 (moderate) Qualified Code(s): E11.22 - Type 2 diabetes mellitus with diabetic chronic kidney disease; N18.3 - Chronic kidney disease, stage 3 ( moderate) (10) Dyslipidemia Code(s): E78.5 - HYPERLIPIDEMIA, UNSPECIFIED Status: Chronic Comment: continue statin (11) GERD (gastroesophageal reflux disease) Code(s): K21.9 - GASTRO-ESOPHAGEAL REFLUX DISEASE WITHOUT ESOPHAGITIS Status: Chronic Comment: stable (12) Hypertension Code(s): I10 - ESSENTIAL (PRIMARY) HYPERTENSION Status: Chronic Qualifiers: (13) Obesity (BMI 30-39.9) Code(s): E66.9 - OBESITY, UNSPECIFIED Status: Chronic (14) Sarcoidosis Code(s): D86.9 - SARCOIDOSIS, UNSPECIFIED Status: Chronic (15) NSTEMI (non-ST elevated myocardial infarction) Code(s): I21.4 - NON-ST ELEVATION (NSTEMI) MYOCARDIAL INFARCTION Status: Acute Comment: type 2 - Plan hemostable -: may dc home -: stress test is -ve and is cleared for dc by -: needs to f/u with PCP in 1 week and labs * . Review of Systems - Medications/Allergies Allergies/Adverse Reactions: Allergies Allergy/AdvReac Type Severity Reaction Status Date / Time Sulfa (Sulfonamide Allergy Verified 07/06/18 02:04 Antibiotics) sulfamethoxazole Allergy Verified 07/06/18 02:04 [From Bactrim] trimethoprim [From Bactrim] Allergy Verified 07/06/18 02:04 Medications: Current Medications Albuterol/Ipratropium (Duoneb) 3 ml NEB QIDPRN PRN PRN Reason: Dyspnea/Wheezing/SOB Last Admin: 07/09/18 11:57 Dose: 3 ml Alprazolam (Xanax) 0.25 mg PO BIDPRN PRN PRN Reason: Anxiety Last Admin: 07/08/18 22:32 Dose: 0.25 mg Amlodipine Besylate (Norvasc) 10 mg PO DAILY [facility] Last Admin: 07/09/18 06:03 Dose: 10 mg Aspirin (Ecotrin) 81 mg PO BID [facility] Last Admin: 07/09/18 06:02 Dose: 81 mg Clopidogrel Bisulfate (Plavix) 75 mg PO DAILY [facility] Last Admin: 07/09/18 06:04 Dose: 75 mg Dextrose/Water (Dextrose 50%) 25 gm SLOW IVP PRN PRN PRN Reason: Hypoglycemia Furosemide (Lasix) 40 mg PO DAILY [facility] Last Admin: 07/09/18 06:03 Dose: 40 mg Glucagon (Glucagon) 1 mg IM PRN PRN PRN Reason: Hypoglycemia Dextrose/Water (D5w) 1,000 mls @ 0 mls/hr IV .Q0M PRN PRN Reason: Hypoglycemia Sodium Chloride (Normal Saline 0.9%) 1,000 mls @ 100 mls/hr IV .Q10H [facility] Last Admin: 07/09/18 06:02 Dose: 1,000 mls Insulin Human Lispro (Humalog) 0 units SC .MODERATE SLIDING SC PRN PRN Reason: Moderate Correctional Scale Last Admin: 07/06/18 14:51 Dose: 4 unit Insulin Human Lispro (Humalog) 0 units SC .BEDTIME SLIDING SC PRN PRN Reason: Bedtime Correctional Scale Metoprolol Tartrate (Lopressor) 25 mg PO BID [facility] Last Admin: 07/09/18 06:03 Dose: 25 mg Miscellaneous Information (Communication Order-Pharmacy) 0 each FS ONE [facility] Stop: 07/09/18 17:31 Paroxetine HCl (Paxil) 20 mg PO DAILY [facility] Last Admin: 07/09/18 06:04 Dose: 20 mg Pramipexole Dihydrochloride (Mirapex) 0.75 mg PO BID [facility] Last Admin: 07/09/18 06:03 Dose: 0.75 mg Prednisone (Prednisone) 5 mg PO QA[facility] Last Admin: 07/09/18 06:02 Dose: 5 mg Quetiapine Fumarate (Seroquel) 25 mg PO HS [facility] Last Admin: 07/08/18 20:32 Dose: 25 mg Senna/Docusate Sodium (Senokot S) 2 tab PO BIDPRN PRN PRN Reason: Constipation Tramadol HCl (Ultram) 100 mg PO Q6H PRN PRN Reason: Pain>4 Last Admin: 07/08/18 20:33 Dose: 100 mg
--- NOTE | 2018-07-10 15:54 | DIS ---
DATE OF ADMISSION: 07/06/2018 DATE OF DISCHARGE: 07/09/2018 DISCHARGE DISPOSITION: To home with [facility]. PRIMARY DISCHARGE DIAGNOSES: 1. Acute congestive heart failure exacerbation with diastolic dysfunction. 2. Dyspnea due to multifactorial reasons. 3. Acute kidney injury resolving. SECONDARY DISCHARGE DIAGNOSES: 1. Hypertension. 2. Chronic iron deficiency anemia. 3. Pulmonary hypertension. 4. Restless legs syndrome. 5. History of sarcoidosis. 6. Diabetes mellitus type 2. 7. Chronic kidney disease stage 3. 8. Dyslipidemia. 9. Gastroesophageal reflux disease. 10. Obesity. 11. Type 2 non-ST elevation myocardial infarction. PROCEDURES DONE DURING HOSPITALIZATION: V/Q scan done on 07/07/2018 showed low probability for a pulmonary embolus. Nuclear stress test done on 07/09/2018 was unremarkable. This was a stress only myocardial perfusion scan. LV ejection fraction was 67%. LV wall motion appeared normal. H and H 10 and 33, platelet count 429. Discharge BUN and creatinine is 47 and 1.5. Troponin I was indeterminate, peaking up to 0.36, CK-MB 1.9. Initial BUN creatinine was 51 and 1.6, BNP 219. HIV 1 and 2 was nonreactive. DISCHARGE MEDICATIONS: 1. Metformin 500 mg p.o. twice daily. 2. Lopressor 25 mg p.o. twice daily. 3. Paroxetine extended release 20 mg daily. 4. Pramipexole 0.75 mg p.o. twice daily. 5. Ultram 100 mg p.o. q.6 hourly p.r.n. 6. Xanax 0.25 mg p.o. twice daily. 7. Norvasc 10 mg p.o. daily. 8. Aspirin 81 mg p.o. daily. 9. Plavix 75 mg p.o. daily. 10. Lasix 40 mg p.o. daily. 11. Prednisone 5 mg p.o. daily for chronic sarcoidosis. 12. Seroquel 25 mg p.o. at bedtime. ALLERGIES: ALLERGIC TO SULFA AND TRIMETHOPRIM. INPATIENT CONSULTS: 1. Dr. Pierce for Pulmonology. 2. Dr. Valdes for Cardiology. DISCHARGE PLAN: The patient to follow up with Dr. Valdes as advised and primary care physician in one week. BRIEF COURSE DURING HOSPITALIZATION: The patient initially came to ER with complaints of increasing shortness of breath. The patient has had recent hospitalization nearly 2 times with similar complaints and was improving within 24 hours of hospitalization. She was essentially admitted for acute respiratory failure with hypoxia and secondary to congestive heart failure exacerbation with diastolic dysfunction. The patient received diuretics and has responded well to above measures. In view of recurrent hospitalization, the patient has had consultation with Dr. Valdes for Cardiology. She has had a nuclear stress test done, which showed normal perfusion scan. She was cleared by Cardiology for discharge. The patient was counseled with regard to medication compliance. She was also evaluated by Dr. Pierce and Dr. Lawler for Pulmonology. A V/Q scan showed low probability for PE. Her sarcoidosis is quiescent with no flare-ups from a long time. She is chronically on 5 mg prednisone for the same. Prior to discharge, she is ambulating and is wanting to go home. [facility] has been setup for discharge. Please see a [id number] documentation for the day of discharge on [email or web address]. Job ID: [id number]
== END 2018-07-09 15:38 | disposition home health service (06) | DRG 280 ==
LOC: ERS 22:01 → 2NO 07-06 00:35 → OBSVTOIN 07-06 00:35
PROVIDERS: ADMIT Hospitalist; ATTEND Hospitalist
DX: I13.0 Hypertensive heart and chronic kidney disease with heart failure and stage 1 through stage 4 chronic kidney disease, or unspecified chronic kidney disease (principal); I50.33 Acute on chronic diastolic (congestive) heart failure; I21.A1 Myocardial infarction type 2; I27.82 Chronic pulmonary embolism; N17.9 Acute kidney failure, unspecified; D86.9 Sarcoidosis, unspecified; I25.10 Atherosclerotic heart disease of native coronary artery without angina pectoris; F41.9 Anxiety disorder, unspecified; G25.81 Restless legs syndrome; F32.9 Major depressive disorder, single episode, unspecified; G47.00 Insomnia, unspecified; N18.3 Chronic kidney disease, stage 3 (moderate); R06.89 Other abnormalities of breathing; I27.20 Pulmonary hypertension, unspecified; Z99.81 Dependence on supplemental oxygen; K21.9 Gastro-esophageal reflux disease without esophagitis; G47.33 Obstructive sleep apnea (adult) (pediatric); E11.22 Type 2 diabetes mellitus with diabetic chronic kidney disease; D50.9 Iron deficiency anemia, unspecified; E66.9 Obesity, unspecified; Z96.611 Presence of right artificial shoulder joint; Z95.828 Presence of other vascular implants and grafts; Z90.710 Acquired absence of both cervix and uterus; Z95.5 Presence of coronary angioplasty implant and graft; Z68.33 Body mass index [BMI] 33.0-33.9, adult; Z79.52 Long term (current) use of systemic steroids; Z86.718 Personal history of other venous thrombosis and embolism; Z98.1 Arthrodesis status; Z90.49 Acquired absence of other specified parts of digestive tract; Z90.81 Acquired absence of spleen; Z88.1 Allergy status to other antibiotic agents; Z88.2 Allergy status to sulfonamides; Z79.84 Long term (current) use of oral hypoglycemic drugs; Z79.899 Other long term (current) drug therapy; Z91.19 Patient's noncompliance with other medical treatment and regimen
CPT/HCPCS: 36415; 36416; 71046; 78452; 78582; 80048; 80053; 81001; 82553; 82728; 83540; 83550; 83735; 83880; 84484; 85025; 86140; 87389; 93005; 93017; 93798; 94640; 96374; A9500; A9540; A9558; J1100; J1644; J1650; J1756; J2250; J2405; J2785; J3010; J7050; J7512; J7611; J7620

== ENCOUNTER 2018-07-12 12:13 | Inpatient (IN) | payer MEDICARE, BC ==
--- NOTE | 2018-07-12 12:44 | RAD ---
SINGLE VIEW OF THE CHEST: COMPARISON: 06/30/2018. HISTORY: Difficulty breathing for 1 month and dyspnea. FINDINGS: A single view of the chest shows a normal-sized cardiomediastinal silhouette. There is no evidence o f consolidation, mass, or pleural effusion. The patient is status post bilateral shoulder arthroplas ty. IMPRESSION: No evidence of acute cardiopulmonary disease. POS: TPC
[2018-07-12 12:48] LABS: #Eosinphils 0.2 thou/uL (0.0-0.7); #Lymphocytes 2.4 thou/uL (1.20-3.40); #Neutrophils 9.8 thou/uL (1.40-6.50); %Basophils 0.3 % (0.0-1.0); %Eosinophils 1.3 % (0.0-10.0); %Lymphocytes 17.7 % (21.0-51.0); %Monocytes 7.2 % (0.0-10.0); %Neutrophils 73.5 % (42.0-75.0); Hemoglobin 12.5 g/dL (12.0-16.0); Mean Corpuscular HGB CONC 31.2 g/dL (32.0-36.0); Mean Corpuscular Hemoglobin 27.8 pg (27.0-31.0); Mean Platelet Volume 8.4 fL (7.4-10.4); Platelet Count 459 thou/uL (130-400); RBC Distribution Width 17.3 % (11.5-14.5); Red Blood Cell (RBC) Count 4.52 mill/uL (4.20-5.40); White Blood Cell (WBC) Count 13.3 thou/uL (4.8-10.8)
[2018-07-12] MEDS ORDERED: methylPREDNISolone Sod Succ/PF 125 MG/2 ML VIAL ONE (13:02)
[2018-07-12 13:07] LABS: ALT (SGPT) 10 U/L (8-55); AST (SGOT) 13 U/L (5-34); Alkaline Phosphatase 128 U/L (40-150); Anion Gap 14 mmol/L (10-20); BUN (Urea Nitrogen) 42 mg/dL (9.8-20.1); Bilirubin, Total 0.3 mg/dL (0.2-1.2); Calc. Creatinine Clearance 0 mL/min (70-130); Calcium 10.1 mg/dL (7.8-10.44); Carbon Dioxide 33 mmol/L (23-31); Chloride 95 mmol/L (98-107); Estimated GFR-MDRD 29; Globulin 3.6 g/dL (2.4-3.5); Glucose 122 mg/dL (83-110); Potassium 3.6 mmol/L (3.5-5.1); Protein, Total 7.6 g/dL (6.0-8.3); Sodium 138 mmol/L (136-145)
[2018-07-12] MEDS ORDERED: Albuterol Sulfate 2.5 mg/3 ml Neb ONE (13:07)
[2018-07-12] MEDS ORDERED: Ipratropium Bromide 2.5 ml Neb ONE (13:08)
[2018-07-12] MEDS ORDERED: Albuterol Sulfate 2.5 mg/0.5 ml Neb ONE (13:08)
[2018-07-12 13:36] LABS: CKMB 1.6 ng/mL (0-6.6)
[2018-07-12] MEDS ORDERED: Acetaminophen 325 MG TAB PO PRN ×2 (14:59→18:09)
[2018-07-12] MEDS ORDERED: ALPRAZolam 0.25 MG TAB PO PRN (15:01)
[2018-07-12 15:45] LABS: ALV-art Gradient 67.145 (0-20); Actual Bicarbonate (HCO3a) 26.2 mEq/L (22-28); Analyzer IN Cardio ER; CO2 Tension 39.5 mmHg (35.0-45.0); Calcium, Ionized 1.17 mmol/L (1.12-1.30); Carboxyhemoglobin (COHb) 0.8 gm% (0.0-3.0); Hemoglobin (Hb) 12.8 g/dL (12.0-16.0); O2 Tension (PaO2) 125.9 mmHg (> 70.0); Potassium - ABG Lab 3.53 mmol/L (3.70-5.30); Puncture Site RRA; pH, Arterial 7.44 (7.35-7.45)
[2018-07-12 17:09] LABS: Critical Call Chem Troponin I RESULT DECREASING; Troponin I 0.528 ng/mL (< 0.028)
[2018-07-12] MEDS: Metoprolol Tartrate 25 MG TAB PO SCH (20:36)
[2018-07-12] MEDS: Heparin 5,000 UNITS/ML VIAL SC SCH (20:37)
[2018-07-12] MEDS: methylPREDNISolone Sod Succ 40 MG VIAL IVP SCH (20:37)
[2018-07-12] MEDS ORDERED: methylPREDNISolone Sod Succ 40 MG VIAL IVP SCH (21:00)
[2018-07-12] MEDS ORDERED: Metoprolol Tartrate 25 MG TAB PO SCH (21:00)
[2018-07-12] MEDS ORDERED: Heparin 5,000 UNITS/ML VIAL SC SCH (21:00)
--- NOTE | 2018-07-12 22:06 | HP ---
CHIEF COMPLAINT: Shortness of breath. HISTORY OF PRESENT ILLNESS: The patient is a 77-year-old female who just was discharged from the hospital on the 3rd, who comes into the hospital with complaints of worsening shortness of breath and cough. The patient's family members at the bedside stated that the home health nurse came to visit her this morning and could hear her wheezing and so at that time she called EMS and also called the patient's family and EMS brought her to the hospital. PAST MEDICAL HISTORY: The patient has a history of, 1. Sarcoidosis diagnosed about 17 years ago. She is on chronic steroids. 2. Diabetes type 2. 3. Hypertension. 4. Depression. 5. Restless legs syndrome. 6. Insomnia. 7. Anxiety. 8. Chronic kidney disease stage 3. 9. Recurrent DVTs, PE, status post IVC filter placement. 10. Coronary artery disease. 11. Diastolic heart failure. 12. Pulmonary hypertension. PAST SURGICAL HISTORY: She has had, 1. Hysterectomy. 2. Right shoulder replacement. 3. Cardiac stent placement. 4. IVC filter placement. 5. Cervical spine fusion. 6. Cholecystectomy. 7. Splenectomy. SOCIAL HISTORY: The patient is , lives at home. The family states that her has been ill. She is currently a full code. FAMILY HISTORY: Significant for diabetes in mother and coronary artery disease in father. ALLERGIES: SHE IS ALLERGIC TO SULFONAMIDES, BACTRIM, AND TRIMETHOPRIM. HOME MEDICATIONS: 1. Lasix 40 mg daily. 2. ProAir two puffs q.4 hours p.r.n. 3. Tramadol 50 mg q.6 hours p.r.n. 4. Hydralazine 25 mg p.o. b.i.d. 5. Lisinopril 40 mg daily. 6. Paroxetine 20 mg daily. 7. Mirapex 0.75 b.i.d. 8. Prednisone 20 mg b.i.d. 9. Restoril 15 mg at bedtime. 10. Metformin 500 mg b.i.d. REVIEW OF SYSTEMS: All negative except for the ones mentioned above in the HPI. PHYSICAL EXAMINATION: VITAL SIGNS: Are as of the following; temperature of 97.7, respirations 23, blood pressure 109/54, pulse 82, 98% on BiPAP. GENERAL: She is awake, oriented x2, appears in minimal respiratory distress. She is currently have a BiPAP on. CV: S1 and S2 present. No murmurs, rubs, or gallops. LUNGS: She has mild rhonchi and mild wheezing all over lungs. ABDOMEN: Soft. Bowel sounds are present x2. EXTREMITIES: No edema. Pedal pulses are present x2. NEUROVASCULAR: No focal deficits noted. She is moving all her extremities well. SKIN: No cuts, lesions, or bruises noted. LABORATORY RESULTS: As of the following; WBCs of 13.3, hemoglobin of 12.5, hematocrit of 40.2, platelets of 459. Chemistry; sodium 138, potassium of 3.6, BUN of 42, creatinine of 1.73. Her troponin was 0.596. Her chest x-ray that was done did not indicate any acute abnormalities. Also, she had a BNP which was 97.7. EKG did not show any acute changes. ASSESSMENT AND PLAN: The patient is a 77-year-old female who presents to the hospital with shortness of breath. 1. Shortness of breath, most likely secondary to chronic obstructive pulmonary disease exacerbation. The patient's BNP is only 97.7. I will start the patient on some steroids. We will start her on some DuoNeb and also consult Pulmonary. The patient does have a history of sarcoidosis. I had spoke with family at length. The patient has been in and out of the hospital multiple times. She may benefit from an inpatient rehab given her multiple comorbidities. She was just recently discharged from the hospital on the 3rd and started to have worsening shortness of breath. In her past hospitalization, she did also have a V/Q scan which was negative. She also had a stress test, which did not show any acute abnormalities. She was seen by both Pulmonary and Cardiology. 2. History of sarcoidosis. We will continue her on steroids. 3. History of hypertension. We will continue her home medications. 4. Mildly elevated troponins. She did have a stress test which was negative. This could be just from heart straining from her shortness of breath, most likely secondary to COPD. However, she does have multiple risk factors. We will consult Cardiology also. I have spoken with the inpatient rehab loan servicing representative to screen her since I believe the patient gets discharged back home, she have chances of being readmitted are very high. 5. Deep venous thrombosis prophylaxis. We will put the patient on subcu heparin. Job ID: [id number]
[2018-07-13] MEDS ORDERED: Sodium Chloride 0.9% 500 ML IV SCH (02:45)
[2018-07-13 03:42] LABS: Critical Call Chem Troponin I RESULT DECREASING
[2018-07-13 04:01] LABS: CKMB 1.4 ng/mL (0-6.6)
[2018-07-13] MEDS ORDERED: Clopidogrel Bisulfate 75 MG TAB PO SCH (09:00)
[2018-07-13] MEDS ORDERED: Furosemide 40 MG TAB PO SCH ×2 (09:00)
[2018-07-13] MEDS ORDERED: methylPREDNISolone Sod Succ 40 MG VIAL IVP SCH (09:00)
[2018-07-13] MEDS ORDERED: Amlodipine 10 MG TAB PO SCH ×2 (09:00)
[2018-07-13] MEDS ORDERED: PAROXETINE HCL 20 MG PO SCH (09:00)
[2018-07-13] MEDS: Clopidogrel Bisulfate 75 MG TAB PO SCH (09:29)
[2018-07-13] MEDS: Heparin 5,000 UNITS/ML VIAL SC SCH (09:29)
[2018-07-13] MEDS: methylPREDNISolone Sod Succ 40 MG VIAL IVP SCH ×2 (09:30→20:37)
[2018-07-13] MEDS: Metoprolol Tartrate 25 MG TAB PO SCH ×2 (09:30→20:37)
--- NOTE | 2018-07-13 12:34 | PDOC.PN ---
- Subjective Encounter Start Date: 07/13/18 Encounter Start Time: 12:32 Subjective: Just discharged from the hospital on 07/10/2018. -: Readmitted due to worsening SOB, cough and weakness. -: Also reported fever of 101 at home but has been afebrile here. - Objective Resuscitation Status - Order Detail: 07/12/18 14:59 Resuscitation Status Routine Resuscitation Status: FULL: Full Resuscitation Vital Signs & Weight: Vital Signs (12 hours) Temp Pulse Resp BP Pulse Ox 07/13/18 07:20 99 07/13/18 07:03 97.1 F L 07/13/18 04:00 96.6 F L 07/13/18 03:00 51 L 97/53 L 07/13/18 02:35 51 L 21 H 96 Weight Weight 178 lb 2 oz Most Recent Monitor Data Heart Rate from ECG 64 NIBP 113/52 NIBP BP-Mean 72 Respiration from ECG 17 SpO2 94 I&O: 07/12/18 07/13/18 07/14/18 06:59 06:59 06:59 Intake Total 900 Output Total 60 Balance 840 Result Diagrams: 07/12/18 12:35 07/12/18 12:35 Phys Exam - Physical Examination acutely ill elderly in mild respiratory distress. afebrile HEENT: PERRLA, moist MMs Neck: no JVD, supple decreased air movement but no obvious crackles or rhonchi Cardiovascular: RRR Gastrointestinal: soft, non-tender, no distention obese Musculoskeletal: no edema, pulses present Neurological: non-focal, moves all 4 limbs Psychiatric: A&O x 3 Dx/Plan (1) Acute respiratory insufficiency Code(s): R06.89 - OTHER ABNORMALITIES OF BREATHING Status: Acute Comment: Etiology is unclear. ? laryngeal reflux/aspiration. Acute elevation in troponinis suggestive of acute cardiac decompensation. (2) Acute non-ST elevation myocardial infarction (NSTEMI) Code(s): I21.4 - NON-ST ELEVATION (NSTEMI) MYOCARDIAL INFARCTION Status: Acute (3) Acute diastolic CHF (congestive heart failure), NYHA class 3 Code(s): I50.31 - ACUTE DIASTOLIC (CONGESTIVE) HEART FAILURE Status: Acute (4) Acute kidney failure Status: Acute (5) Anxiety and depression Code(s): F41.9 - ANXIETY DISORDER, UNSPECIFIED; F32.9 - MAJOR DEPRESSIVE DISORDER, SINGLE EPISODE, UNSPECIFIED Status: Chronic (6) CKD (chronic kidney disease) stage 3, GFR 30-59 ml/min Code(s): N18.3 - CHRONIC KIDNEY DISEASE, STAGE 3 (MODERATE) Status: Chronic Comment: stable (7) GERD (gastroesophageal reflux disease) Code(s): K21.9 - GASTRO-ESOPHAGEAL REFLUX DISEASE WITHOUT ESOPHAGITIS Status: Chronic Comment: stable (8) Pulmonary HTN Code(s): I27.20 - PULMONARY HYPERTENSION, UNSPECIFIED Status: Chronic (9) Sarcoidosis Code(s): D86.9 - SARCOIDOSIS, UNSPECIFIED Status: Chronic - Plan DC lasix. -: Continue supportice care with prn BIPAP, oxygen and duonebs. -: Start antithrombotic therapy for NSTEMI. -: Awaiting pulm and cardiology input. -: Speech evaluation of swallowing requested. Monitor renal function. * .
[2018-07-13] MEDS ORDERED: Aspirin 81 mg Enteric Coated Tablet PO SCH (13:00)
[2018-07-13] MEDS: traMADol HCl 50 MG TAB PO PRN (13:29)
[2018-07-13] MEDS: Enoxaparin Sodium 80 MG/0.8 ML SYRINGE SC SCH (20:38)
[2018-07-14] MEDS: ALPRAZolam 0.25 MG TAB PO PRN ×2 (00:09→23:59)
[2018-07-14 05:25] LABS: #Monocytes 0.7 thou/uL (0.11-0.59); #Neutrophils 17.7 thou/uL (1.40-6.50); %Basophils 0.1 % (0.0-1.0); %Eosinophils 0.1 % (0.0-10.0); %Monocytes 3.4 % (0.0-10.0); %Neutrophils 91.4 % (42.0-75.0); Hemoglobin 10.6 g/dL (12.0-16.0); Mean Corpuscular HGB CONC 31.3 g/dL (32.0-36.0); Mean Corpuscular Hemoglobin 27.7 pg (27.0-31.0); Mean Corpuscular Volume 88.7 fL (78.0-98.0); Mean Platelet Volume 8.6 fL (7.4-10.4); Platelet Count 458 thou/uL (130-400); RBC Distribution Width 17.4 % (11.5-14.5); Red Blood Cell (RBC) Count 3.84 mill/uL (4.20-5.40); White Blood Cell (WBC) Count 19.4 thou/uL (4.8-10.8)
[2018-07-14 05:43] LABS: Albumin 3.4 g/dL (3.4-4.8); Anion Gap 17 mmol/L (10-20); BUN (Urea Nitrogen) 79 mg/dL (9.8-20.1); Calc. Creatinine Clearance 30 mL/min (70-130); Calcium 8.5 mg/dL (7.8-10.44); Carbon Dioxide 24 mmol/L (23-31); Chloride 101 mmol/L (98-107); Estimated GFR-MDRD 24; Glucose 162 mg/dL (83-110); Sodium 138 mmol/L (136-145)
[2018-07-14] MEDS: Clopidogrel Bisulfate 75 MG TAB PO SCH (09:17)
[2018-07-14] MEDS: Enoxaparin Sodium 80 MG/0.8 ML SYRINGE SC SCH ×2 (09:17→21:11)
[2018-07-14] MEDS: Metoprolol Tartrate 25 MG TAB PO SCH ×2 (09:18→21:11)
[2018-07-14] MEDS: Aspirin 81 mg Enteric Coated Tablet PO SCH (09:18)
[2018-07-14] MEDS: methylPREDNISolone Sod Succ 40 MG VIAL IVP SCH ×2 (09:18→21:11)
[2018-07-14] MEDS ORDERED: Communication Order-Pharmacy FS SCH (11:00)
--- NOTE | 2018-07-14 11:04 | PDOC.CTH ---
Cardiology Progress Note - Subjective pt continues to wheeze. worse overnight. Creatinine also has increased. - Objective Vital Signs Temp Pulse Resp BP Pulse Ox 07/14/18 04:26 96.2 F L 07/14/18 02:00 52 L 16 100 07/14/18 00:54 96.5 F L 07/14/18 00:09 66 17 114/62 97 Admit Weight 178 lb 1.92 oz Weight 181 lb 6 oz 07/13/18 07/14/18 07/15/18 06:59 06:59 06:59 Intake Total 900 1230 Output Total 60 375 Balance 840 855 - Physical Examination General/Neuro: NAD Neck: no JVD present Lungs: unlabored respirations Heart: RRR Abdomen: no HSM, NT/ND, soft Extremities: + femoral B - Telemetry Telemetry Rhythm: SR - Labs Result Diagrams: 07/14/18 04:55 07/14/18 04:55 Troponin/CKMB CK-MB (CK-2) 1.4 ng/mL (0-6.6) 07/13/18 02:48 Troponin I 0.334 ng/mL (< 0.028) H* 07/13/18 02:48 - Assessment/Plan Elevated troponin SOB CKD Increase troponin unknown. Recommend angio. R/B discussed Hydrate overnight Recent normal stress test If wheezing dinimishes, receommend angio in am. If not will defer till lung status improved
--- NOTE | 2018-07-14 11:53 | CON ---
DATE OF CONSULTATION: 07/13/2018 REASON FOR CONSULTATION: Elevated troponin. HISTORY OF PRESENT ILLNESS: Ms. Coburn is a 77-year-old woman whom I saw and evaluated over the last several weeks. She recently presented with shortness of breath in addition to renal insufficiency. She was diagnosed with COPD. Given her elevated troponin, we decided to proceed with coronary angiography. Unfortunately, her creatinine continued to climb. We decided to proceed with a noninvasive stress study. Her noninvasive stress study showed a normal LVEF with no ischemia. She was subsequently discharged. She re-presented with further shortness of breath. Her troponin was slightly elevated at 0.5. Her creatinine continues to be an issue. No chest pain, pressure, or other associated symptoms noted. PAST MEDICAL HISTORY: Previous DVT, chronic kidney disease, anxiety, restless legs syndrome, depression, hypertension, sarcoidosis, diastolic dysfunction, and pulmonary hypertension. HOME MEDICATIONS: 1. Mirapex. 2. Aspirin. 3. ProAir. 4. Tramadol. 5. Prednisone. 6. Metformin. 7. Lopressor. 8. Norvasc. 9. Xanax. 10. Paroxetine. 11. Lasix. 12. Plavix. 13. Seroquel. REVIEW OF SYSTEMS: Ten-point review of systems is reviewed and as above, otherwise negative. PHYSICAL EXAMINATION: VITAL SIGNS: Blood pressure 90/43, pulse 50, temperature afebrile. GENERAL: Patient is a pleasant female, who is in no acute distress. The patient appears their stated age. NEUROLOGIC: The patient is alert and oriented x3 with no focal neurologic deficits. HEENT: Sclerae without icterus. Mouth has moist mucous membranes with normal pallor. NECK: No JVD. Carotid upstroke brisk. No bruits bilaterally. LUNGS: Rhonchi and rales bilaterally. BACK: No scoliosis or kyphosis. CARDIAC: Regular rate and rhythm with normal S1 and S2. No S3 or S4 noted. No significant rubs, murmurs, thrills, or gallops noted throughout the precordium. PMI is not displaced. There is no parasternal heave. ABDOMEN: Soft, nontender, nondistended. No peritoneal signs present. No hepatosplenomegaly. No abnormal striae. EXTREMITIES: 2+ femoral and 2+ dorsalis pedis pulses. No cyanosis, clubbing, or edema. SKIN: No gross abnormalities. PERTINENT LABORATORY DATA: Hemoglobin 12.5. Creatinine 1.73. Peak troponin 0.596, which is slightly elevated from previous troponin. IMPRESSION: 1. Elevated troponin. 2. Recurrent shortness of breath. 3. Cardiovascular risk factors for coronary artery disease. RECOMMENDATIONS: At this point, I would recommend proceeding with coronary angiography, discussed the procedure in full details with Ms. Coburn. Risks include, but are not limited to the following: , stroke, [place], need for emergency surgery, loss of limb, bleeding, and infection, as well as a reaction to the dye causing kidney failure and needing long-term dialysis. I also discussed the risks of PCI to include all of the above including coronary dissection and perforation in addition to acute stent thrombosis and restenosis. All questions about the procedure were answered. Given the above, the patient agreed to proceed with coronary angiography and possible PCI. All questions were answered. No current indications to a drug-coated stent placement. We will proceed if needed. We will hydrate and recheck creatinine in a.m. I would like to see a downtrending creatinine prior to proceeding with angio. Job ID: [id number]
--- NOTE | 2018-07-14 12:03 | PRG ---
DATE OF SERVICE: 07/14/2018 SUBJECTIVE: Ms. Coburn states she is wheezing. She is actually in no distress, talking in complete sentences with a heart rate of 50. OBJECTIVE: VITAL SIGNS: She is afebrile. Respiratory rate 13, oximetry is 100%, and blood pressure is 98/43. LUNGS: Completely clear. HEART: Regular rhythm. ABDOMEN: Soft and nontender. EXTREMITIES: Without edema. NEUROLOGIC: Nonfocal. IMPRESSION: Complaints of dyspnea with no physical exam findings. At this point in time, I would recommend getting a bedside spirometry to see if we quantitate pulmonary function. She has complaints that are way out of proportion to her exam findings. We will continue to follow. She could move from intermediate care unit to the telemetry unit since the creative services intern to consider cardiac catheterization at some point. Job ID: [id number]
--- NOTE | 2018-07-14 14:12 | PDOC.PN ---
- Subjective Encounter Start Date: 07/14/18 Encounter Start Time: 14:07 Subjective: Complains that her wheezing is worse today. -: Remained afebrile - Objective Resuscitation Status - Order Detail: 07/12/18 14:59 Resuscitation Status Routine Resuscitation Status: FULL: Full Resuscitation Vital Signs & Weight: Vital Signs (12 hours) Temp Pulse Pulse Pulse BP BP Pulse Ox 07/14/18 08:40 160 H 59 L 55 L 128/61 133/52 L 98 07/14/18 04:26 96.2 F L Weight Admit Weight 178 lb 1.92 oz Weight 181 lb 6 oz Most Recent Monitor Data Heart Rate from ECG 53 NIBP 141/77 NIBP BP-Mean 98 Respiration from ECG 21 SpO2 100 I&O: 07/13/18 07/14/18 07/15/18 06:59 06:59 06:59 Intake Total 900 1230 Output Total 60 375 Balance 840 855 Result Diagrams: 07/14/18 04:55 07/14/18 04:55 Phys Exam - Physical Examination female in mild respiratory distress. afebrile HEENT: PERRLA, moist MMs Neck: supple fair air entry bilaterally with prolonged expirtation and scattered wheezes Cardiovascular: RRR Gastrointestinal: soft, non-tender, no distention, positive bowel sounds Musculoskeletal: no edema Neurological: non-focal, moves all 4 limbs Psychiatric: A&O x 3 Dx/Plan (1) Acute chronic obstructive pulmonary disease with respiratory distress Code(s): J44.9 - CHRONIC OBSTRUCTIVE PULMONARY DISEASE, UNSPECIFIED; R06.03 - ACUTE RESPIRATORY DISTRESS Status: Acute (2) Acute respiratory insufficiency Code(s): R06.89 - OTHER ABNORMALITIES OF BREATHING Status: Acute Comment: Etiology is unclear. ? laryngeal reflux/aspiration. Acute elevation in troponinis suggestive of acute cardiac decompensation. (3) Acute non-ST elevation myocardial infarction (NSTEMI) Code(s): I21.4 - NON-ST ELEVATION (NSTEMI) MYOCARDIAL INFARCTION Status: Acute (4) Acute kidney failure Status: Acute (5) Anxiety and depression Code(s): F41.9 - ANXIETY DISORDER, UNSPECIFIED; F32.9 - MAJOR DEPRESSIVE DISORDER, SINGLE EPISODE, UNSPECIFIED Status: Chronic (6) CKD (chronic kidney disease) stage 3, GFR 30-59 ml/min Code(s): N18.3 - CHRONIC KIDNEY DISEASE, STAGE 3 (MODERATE) Status: Chronic Comment: stable (7) GERD (gastroesophageal reflux disease) Code(s): K21.9 - GASTRO-ESOPHAGEAL REFLUX DISEASE WITHOUT ESOPHAGITIS Status: Chronic Comment: stable (8) Pulmonary HTN Code(s): I27.20 - PULMONARY HYPERTENSION, UNSPECIFIED Status: Chronic (9) Sarcoidosis Code(s): D86.9 - SARCOIDOSIS, UNSPECIFIED Status: Chronic - Plan start duonebs. Continue steroid and BIPAP prn -: Continue antithrombotoic therapy. -: Start IVF due to worsening renal function. -: Get UA, and urine electrolytes. -: Start acetylcysteine in prepartaion for possible cardiaac cath. * .
[2018-07-14] MEDS ORDERED: Acetylcysteine 20% 200 MG/ML 30 ML VIAL PO SCH (15:00)
[2018-07-14] MEDS: Sodium Chloride 0.9% 1,000 ML IV SCH (15:15)
[2018-07-14 17:04] LABS: Bilirubin Negative (Negative); Blood, Urine Negative (Negative); Clarity CLEAR (Clear); Glucose, Urine (Dipstick) Negative (Negative); Leukocyte Negative (Negative); Nitrite Negative (Negative); Protein, Urine (Dipstick) Negative (Neg-Trace); Urobilinogen 0.2 mg/dL (0.2-1.0); pH, Urine 6.5 (5.0-9.0)
[2018-07-14 17:06] LABS: Bacteria/HPF Rare-Few HPF (None Seen); Hyaline Casts/LPF 0-3 HYALINE CAST LPF (0-3 Hyaline); RBC/HPF 0-3 HPF (0-3); Squamous Epithelial None Seen HPF (0-3); Urine Culture Reflex No No; WBC/HPF None Seen HPF (0-3)
[2018-07-14 17:22] LABS: Creatinine, Urine 47.04 mg/dL (47-110); Protein, Urine Random Quant Less than 10 mg/dL (1-14); Sodium, Urine 23 mmol/L (Not Available); Urea Nitrogen, Random Urine 635 mg/dl
[2018-07-14] MEDS ORDERED: Pramipexole Di-HCl 0.25 MG TAB PO SCH (22:00)
[2018-07-14] MEDS: Acetylcysteine 20% 200 MG/ML PO SCH (22:27)
[2018-07-15] MEDS: Sodium Chloride 0.9% 1,000 ML IV SCH ×3 (01:25→15:23)
[2018-07-15 04:59] LABS: INR-International Normal Ratio 1.1; PTT 32.7 SEC (22.9-36.1); Prothrombin Time 13.8 SEC (12.0-14.7)
[2018-07-15 05:16] LABS: Albumin 3.4 g/dL (3.4-4.8); Anion Gap 15 mmol/L (10-20); BUN (Urea Nitrogen) 73 mg/dL (9.8-20.1); BUN/Creatinine Ratio 43.98; Calc. Creatinine Clearance 37 mL/min (70-130); Calcium 8.6 mg/dL (7.8-10.44); Carbon Dioxide 26 mmol/L (23-31); Chloride 103 mmol/L (98-107); Estimated GFR-MDRD 30; Glucose 208 mg/dL (83-110); Phosphorus 3.2 mg/dL (2.3-4.7); Sodium 140 mmol/L (136-145)
[2018-07-15 05:25] LABS: Hemoglobin 10.3 g/dL (12.0-16.0); Lymphocytes 5 % (21-51); MDiff Complete? YES; Macrocytosis SLIGHT = 6-15 cells (100X) (0-5/hpf); Mean Corpuscular HGB CONC 31.2 g/dL (32.0-36.0); Mean Corpuscular Hemoglobin 27.9 pg (27.0-31.0); Mean Corpuscular Volume 89.4 fL (78.0-98.0); Mean Platelet Volume 8.9 fL (7.4-10.4); Monocytes 1 % (0-10); Neutrophil 94 % (42-75); Nucleated RBC 1 % (0); Platelet Count 445 thou/uL (130-400); Platelet Morphology Comment Appears Increased; RBC Distribution Width 17.5 % (11.5-14.5); Red Blood Cell (RBC) Count 3.68 mill/uL (4.20-5.40); White Blood Cell (WBC) Count 19.2 thou/uL (4.8-10.8)
[2018-07-15] MEDS ORDERED: Sodium Chloride 0.9% 1,000 ML IV SCH ×2 (06:00→10:25)
--- NOTE | 2018-07-15 07:22 | PDOC.CTH ---
Cardiology Progress Note - Subjective No new complaints. - Objective Vital Signs Temp Pulse Resp BP Pulse Ox 07/15/18 07:05 97.6 F 07/15/18 04:01 62 19 144/71 H 97 07/15/18 03:56 97.0 F L 07/15/18 02:25 63 19 95 07/15/18 00:00 62 20 150/87 H 100 07/14/18 23:34 98.1 F 07/14/18 20:00 64 22 H 116/89 2 L 07/14/18 19:52 65 22 H 100 Admit Weight 178 lb 1.92 oz Weight 188 lb 7 oz 07/14/18 07/15/18 07/16/18 06:59 06:59 06:59 Intake Total 1230 2720 Output Total 375 1900 Balance 855 820 - Physical Examination General/Neuro: alert & oriented x3, NAD Neck: carotid US brisk, no JVD present Lungs: unlabored respirations, other: (wheezing) Heart: PMI normal, RRR Abdomen: NT/ND, soft Extremities: + femoral B - Telemetry Telemetry Rhythm: SR - Labs Result Diagrams: 07/15/18 04:00 07/15/18 04:00 Troponin/CKMB CK-MB (CK-2) 1.4 ng/mL (0-6.6) 07/13/18 02:48 Troponin I 0.334 ng/mL (< 0.028) H* 07/13/18 02:48 - Assessment/Plan Elevated troponin SOB CKD Pt continues with wheezing Pt would like to wait till tomorrow before angio Given continued wheezing will defer
--- NOTE | 2018-07-15 07:47 | CON ---
DATE OF CONSULTATION: 07/13/2018 Ms. Coburn is a 77-year-old female. She presents again with complaints of shortness of breath. Home Health nurse apparently called EMS, and she was brought to the hospital. She is in no distress at this time. PAST MEDICAL HISTORY: 1. Remarkable for sarcoid. She has no radiographic evidence of active sarcoid lung disease. Even so, she is on chronic steroids. 2. Diabetes. 3. Hypertension. 4. Reported history of insomnia and anxiety. 5. Chronic kidney disease. 6. 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 7. History of coronary artery disease. 8. History of diastolic heart failure. 9. Status post hysterectomy. 10. History of shoulder replacement. 11. History of coronary stent in the past. 12. Cervical spine fusion. 13. History of cholecystectomy. 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 15. History of recent negative stress test. SOCIAL HISTORY: She is a nonsmoker and nondrinker. FAMILY HISTORY: There is a history of diabetes and vascular disease in the family. ALLERGIES: SHE REPORTS ALLERGY TO SULFA. MEDICATIONS: Prior to admission, she is on, 1. Lasix. 2. ProAir. 3. Tramadol. 4. Hydralazine. 5. Lisinopril. 6. Paxil. 7. Mirapex. 8. Prednisone 40 mg a day total. 9. Restoril. 10. Metformin. REVIEW OF SYSTEMS: Ten-point review of systems completed, is negative. Specifically, she denies fever, chills, sweats, purulent sputum, or cough. She has had no hemoptysis. PHYSICAL EXAMINATION: VITAL SIGNS: Heart rate is 50, respiratory rate is 20, and blood pressure is 117/61. HEENT: Pupils are equal. Sclerae are anicteric. GENERAL: She is absolutely in no distress. RESPIRATORY: She is not using accessory muscles. NECK: Supple. She has no lymphadenopathy. LUNGS: Completely clear. HEART: Regular rhythm. ABDOMEN: Soft. EXTREMITIES: No clubbing, cyanosis, or edema. NEURO: Nonfocal. LABORATORY DATA: All have been reviewed. IMPRESSION: Dyspnea, admitted to the intermediate care unit with no clear cause. She certainly has no physical exam findings at this time. Cardiology has been consulted with a negative stress test recently. It is unlikely that this was coronary ischemia. When I was examining her, I did notice that she was making a forced expiratory maneuver, creating a wheezing sound when I was examining her and she was not doing this, when I was not examining her. When asked to breathe through her nose, she did not have any wheezing. We will follow. I am not sure that there is anything active going on at this point in time. We will probably have to obtain more objective data, which might include cardiac catheterization and pulmonary function test. This is a 50 minute consult, with greater than 50% of time spent on unit coordinating care. Job ID: [id number] [facility]ITALDelonte
--- NOTE | 2018-07-15 08:46 | PRG ---
DATE OF SERVICE: 07/15/2018 SUBJECTIVE: The patient is back in the hospital with shortness of breath. She is pending cardiac catheterization. She says she is "wheezy." PHYSICAL EXAMINATION: VITAL SIGNS: Temperature 97, pulse 60, blood pressure 144/71. HEENT: Unremarkable. NECK: She has some inspiratory noises present. LUNGS: Clear peripherally. CARDIAC: S1, S2 regular. ABDOMEN: Soft. EXTREMITIES: No edema. LABORATORY DATA: Sodium 140, potassium 4, BUN 73, creatinine 1.6. White blood cell count 19.2, hematocrit 32.9, and platelet count 445. Her x-ray at the time of admission was clear. ASSESSMENT: I suspect she may have vocal cord dysfunction based on her presentation. PLAN: We need PFTs. This probably would not be done until tomorrow because of staffing issues. She is continuing steroids and breathing treatments. Job ID: [id number]
--- NOTE | 2018-07-15 09:17 | CON ---
DATE OF CONSULTATION: HISTORY OF PRESENT ILLNESS: The patient is back in the hospital. She was just discharged. She was seen by me today because of her presence in Critical Care/IMU. She is in no distress. She presents with complaints of shortness of breath. PAST MEDICAL HISTORY: Remarkable for: 1. Sarcoid, this is not a clinical issue at this time. 2. Diabetes. 3. Hypertension. 4. Anxiety. 5. Insomnia. 6. Chronic kidney disease. 7. History of inferior vena cava filter. 8. History of coronary artery disease and diastolic heart failure with negative stress test recently per my discussion with Dr. Valdes. 9. Status post hysterectomy. 10. History of shoulder replacement. 11. History of coronary stenting in the past. 12. History of cervical fusion. 13. History of cholecystectomy. 14. History of splenectomy. SOCIAL HISTORY: She is nonsmoker, nondrinker. FAMILY HISTORY: She has no family history of lung disease in early age. ALLERGIES: REPORTS SULFA ALLERGY. MEDICATIONS: Prior to admission, she is on Lasix, ProAir, tramadol, hydralazine, lisinopril, Paxil, Mirapex, prednisone 20 mg twice a day, Restoril, and metformin. REVIEW OF SYSTEMS: Negative. PHYSICAL EXAMINATION: GENERAL: She is afebrile. She is in absolutely no distress. VITAL SIGNS: Heart rate is in the 60s, blood pressure 117/61, respiratory rates in the teens to low 20s. HEAD AND NECK: Unremarkable. She has end-expiratory wheezes, but this is all created by forced expiratory maneuver when she is breathing through her mouth. When she breathes through her nose and breathes in a calm fashion, she has absolutely no wheezing. HEART: Regular rhythm. ABDOMEN: Soft. EXTREMITIES: Without clubbing, cyanosis, or edema. IMAGING STUDIES: Chest radiograph shows no infiltrates. IMPRESSION: Dyspnea of unclear etiology. It is extremely rare for someone to come back with acute bronchospasm on 40 mg a day of prednisone silent reflux. Nothing on her radiographs suggesting that she has a pulmonary parenchymal abnormality explaining these episodes. The only variable out that there is coronary artery disease whether or not her stress test was as false negative. I was told by Cardiology that they will be seeing her and probably will be recommending cardiac catheterization. Job ID: [id number]
[2018-07-15] MEDS: Acetylcysteine 20% 200 MG/ML PO SCH ×2 (10:20→21:53)
[2018-07-15] MEDS: Clopidogrel Bisulfate 75 MG TAB PO SCH (10:21)
[2018-07-15] MEDS: Aspirin 81 mg Enteric Coated Tablet PO SCH (10:21)
[2018-07-15] MEDS: Metoprolol Tartrate 25 MG TAB PO SCH ×2 (10:22→21:54)
[2018-07-15] MEDS: Pramipexole Di-HCl 0.25 MG TAB PO SCH ×2 (10:23→21:55)
[2018-07-15] MEDS: methylPREDNISolone Sod Succ 40 MG VIAL IVP SCH ×2 (10:23→21:54)
--- NOTE | 2018-07-15 10:27 | PDOC.PN ---
- Subjective Encounter Start Date: 07/15/18 Encounter Start Time: 10:25 Subjective: Better but still wheezing. -: Cardiac cath cancelled due to respiratory status. -: Remained afebrile. - Objective Resuscitation Status - Order Detail: 07/12/18 14:59 Resuscitation Status Routine Resuscitation Status: FULL: Full Resuscitation Vital Signs & Weight: Vital Signs (12 hours) Temp Pulse Resp BP Pulse Ox 07/15/18 08:00 2 L 07/15/18 07:37 99 07/15/18 07:35 60 20 95 07/15/18 07:05 97.6 F 07/15/18 04:01 62 19 144/71 H 97 07/15/18 03:56 97.0 F L 07/15/18 02:25 63 19 95 07/15/18 00:00 62 20 150/87 H 100 07/14/18 23:34 98.1 F Weight Admit Weight 178 lb 1.92 oz Weight 188 lb 7 oz Most Recent Monitor Data Heart Rate from ECG 56 NIBP 134/61 NIBP BP-Mean 85 Respiration from ECG 17 SpO2 96 I&O: 07/14/18 07/15/18 07/16/18 06:59 06:59 06:59 Intake Total 1230 2720 Output Total 375 1900 Balance 855 820 Result Diagrams: 07/15/18 04:00 07/15/18 04:00 Phys Exam - Physical Examination mild respiratory distress, afebrile HEENT: PERRLA, moist MMs Neck: supple fair air entry with scattered transmitted sound and rhonchi Cardiovascular: RRR Gastrointestinal: soft obese Musculoskeletal: no edema Neurological: non-focal, moves all 4 limbs Psychiatric: A&O x 3 Dx/Plan (1) Acute chronic obstructive pulmonary disease with respiratory distress Code(s): J44.9 - CHRONIC OBSTRUCTIVE PULMONARY DISEASE, UNSPECIFIED; R06.03 - ACUTE RESPIRATORY DISTRESS Status: Acute (2) Acute respiratory insufficiency Code(s): R06.89 - OTHER ABNORMALITIES OF BREATHING Status: Acute Comment: Etiology is unclear. ? laryngeal reflux/aspiration. Acute elevation in troponinis suggestive of acute cardiac decompensation. (3) Acute non-ST elevation myocardial infarction (NSTEMI) Code(s): I21.4 - NON-ST ELEVATION (NSTEMI) MYOCARDIAL INFARCTION Status: Acute (4) Acute kidney failure Status: Acute (5) Anxiety and depression Code(s): F41.9 - ANXIETY DISORDER, UNSPECIFIED; F32.9 - MAJOR DEPRESSIVE DISORDER, SINGLE EPISODE, UNSPECIFIED Status: Chronic (6) CKD (chronic kidney disease) stage 3, GFR 30-59 ml/min Code(s): N18.3 - CHRONIC KIDNEY DISEASE, STAGE 3 (MODERATE) Status: Chronic Comment: stable (7) GERD (gastroesophageal reflux disease) Code(s): K21.9 - GASTRO-ESOPHAGEAL REFLUX DISEASE WITHOUT ESOPHAGITIS Status: Chronic Comment: stable (8) Pulmonary HTN Code(s): I27.20 - PULMONARY HYPERTENSION, UNSPECIFIED Status: Chronic (9) Sarcoidosis Code(s): D86.9 - SARCOIDOSIS, UNSPECIFIED Status: Chronic - Plan Get sputum culture. RT to do sputum induction -: Continue IVF, steroid and bronchodilators -: PF as per pulmonary. -: For cardiac cath when respiratory status improve. -: Monitor renal function. * .
--- NOTE | 2018-07-15 14:59 | PQF ---
CLINICAL DOCUMENTATION IMPROVEMENT CLARIFICATION FORM: ICD-10 Updated PLEASE DO AN ADDENDUM TO THE PROGRESS NOTE WITH ANY DOCUMENTATION UPDATES OR ADDITIONS AND CARRY THROUGH TO DC SUMMARY. THANK YOU. DATE: 07/15/18 ATTN: DR. WALLS Please exercise your independent, professional judgment in responding to the clarification form. Clinical indicators are provided on the bottom of this form for your review Please check appropriate box(s) to clarify if the following diagnosis has been ruled in or ruled out: "ACUTE RESPIRATORY FAILURE" [ x ] Ruled in diagnosis [x ] Continue to treat [ ] Resolved [ ] Ruled out diagnosis [ ] Cannot rule out diagnosis [ ] Other diagnosis [ ] Unable to determine In addition, please specify: Present on Admission (POA): [ x ] Yes [ ] No [ ] Unable to determine For continuity of documentation, please document condition throughout progress notes and discharge summary. Thank You. CLINICAL INDICATORS - SIGNS / SYMPTOMS / LABS ER NOTE: "ACUTE RESPIRATORY FAILURE" "EMS REPORTS INITIAL O2 SAT OF 88% ON ROOM AIR" RR 26 RISKS: COPD EXACERBATION CHF TREATMENT: SUPPLEMENTAL OXYGEN IPRATROPIUM BROMIDE (ER-PRESENT) ALBUTEROL SULFATE (ER-PRESENT) METHYLPREDNISOLONE IV (ER-PRESENT) PULMONARY CONSULT CHEST XRAY IMCU MONITORING [employer] Winform Viewer (This form is maintained as a part of the permanent medical record) 2014 [employer]. All Rights Reserved [email or web address] [email or web address] Office: [phone] MTDD
[2018-07-15] MEDS ORDERED: Communication Order-Pharmacy FS SCH (15:00)
[2018-07-15] MEDS: ALPRAZolam 0.25 MG TAB PO PRN (21:55)
[2018-07-16] MEDS: Sodium Chloride 0.9% 1,000 ML IV SCH (03:26)
[2018-07-16 04:12] LABS: Anion Gap 12 mmol/L (10-20); BUN (Urea Nitrogen) 50 mg/dL (9.8-20.1); Calc. Creatinine Clearance 50 mL/min (70-130); Calcium 8.4 mg/dL (7.8-10.44); Carbon Dioxide 28 mmol/L (23-31); Chloride 107 mmol/L (98-107); Estimated GFR-MDRD 41; Glucose 172 mg/dL (83-110); Potassium 4.4 mmol/L (3.5-5.1); Sodium 143 mmol/L (136-145)
[2018-07-16 04:17] LABS: Band 6 % (5-11); Hemoglobin 9.4 g/dL (12.0-16.0); Lymphocytes 11 % (21-51); MDiff Complete? YES; Mean Corpuscular HGB CONC 30.8 g/dL (32.0-36.0); Mean Corpuscular Hemoglobin 27.7 pg (27.0-31.0); Mean Corpuscular Volume 89.7 fL (78.0-98.0); Mean Platelet Volume 8.6 fL (7.4-10.4); Monocytes 2 % (0-10); Neutrophil 81 % (42-75); Platelet Count 430 thou/uL (130-400); Platelet Morphology Comment Appears Increased; RBC Distribution Width 17.3 % (11.5-14.5); Red Blood Cell (RBC) Count 3.38 mill/uL (4.20-5.40); White Blood Cell (WBC) Count 19.2 thou/uL (4.8-10.8)
[2018-07-16] MEDS: Metoprolol Tartrate 25 MG TAB PO SCH ×2 (05:53→20:36)
[2018-07-16 05:58] VITALS: BMI 33.5
[2018-07-16] MEDS ORDERED: hydrALAZINE 20 MG/ML VIAL ONE (07:11)
[2018-07-16] MEDS ORDERED: Fentanyl 100 MCG/2 ML VIAL ONE (07:14)
[2018-07-16] MEDS ORDERED: Midazolam HCl 2 mg/2 ml Vial ONE (07:14)
[2018-07-16] MEDS ORDERED: Sodium Chloride 0.9% 200 ML IV PRN ×2 (07:32→07:35)
[2018-07-16] MEDS ORDERED: Nitroglycerin 0.4 MG TAB (25 Tab Bottle) SL PRN ×2 (07:32→07:35)
[2018-07-16] MEDS ORDERED: Acetaminophen/Codeine 30-300mg Tablet PO PRN ×4 (07:32→07:35)
[2018-07-16] MEDS ORDERED: Sodium Chloride 0.9% 1,000 ML IV SCH (07:45)
--- NOTE | 2018-07-16 09:01 | PRG ---
DATE OF SERVICE: 07/16/2018 SUBJECTIVE: She underwent cardiac catheterization this morning, which was apparently negative. Right now she is having to lie flat post cardiac catheterization. Her breathing is about the same. OBJECTIVE: VITAL SIGNS: Temperature 97.4, pulse 58, blood pressure 150/91. A 24-hour intake 3740, output 1150. HEENT: Unremarkable. NECK: No JVD. LUNGS: Coarse rhonchi bilaterally. CARDIAC: S1, S2. Regular. ABDOMEN: Soft. EXTREMITIES: No edema. LABORATORY DATA: Sodium 143, potassium 4.4, chloride 107, CO2 of 28, BUN 50, creatinine 1.2, glucose 172. White blood cell count 19.2, hematocrit 30.4, and platelet count 430. ASSESSMENT: 1. The patient appears slightly fluid overloaded. She has been given aggressive fluid over the last 24 hours in the face of her kidney function given the need for cardiac catheterization. 2. History of sarcoidosis. PLAN: 1. Await PFTs so that we can see the flow volume loop and assess her vocal cords better. 2. Hopefully, the hydration can stop soon as I am concerned about her being fluid overloaded. 3. She is continuing steroids nebulization therapy. Job ID: [id number]
[2018-07-16] MEDS: PARoxetine 20 MG TAB PO SCH (09:06)
[2018-07-16] MEDS: Aspirin 81 mg Enteric Coated Tablet PO SCH (09:06)
[2018-07-16] MEDS: Pramipexole Di-HCl 0.25 MG TAB PO SCH ×2 (09:07→20:35)
[2018-07-16] MEDS: methylPREDNISolone Sod Succ 40 MG VIAL IVP SCH ×2 (09:08→20:36)
[2018-07-16] MEDS: Clopidogrel Bisulfate 75 MG TAB PO SCH (09:09)
[2018-07-16] MEDS: traMADol HCl 50 MG TAB PO PRN (12:58)
--- NOTE | 2018-07-16 17:24 | PDOC.PN ---
- Subjective Encounter Start Date: 07/16/18 Encounter Start Time: 17:24 Subjective: Feeling better. Had cardiaccath earlier today which was negative. -: Still coughing with some wheezing but overall better.No fever. - Objective Resuscitation Status - Order Detail: 07/12/18 14:59 Resuscitation Status Routine Resuscitation Status: FULL: Full Resuscitation Vital Signs & Weight: Vital Signs (12 hours) Temp Pulse Resp Pulse Ox 07/16/18 14:47 97.9 F 07/16/18 13:57 61 17 95 07/16/18 10:34 55 L 18 98 07/16/18 10:33 97.6 F 07/16/18 08:00 99 07/16/18 07:54 97.4 F L Weight Admit Weight 178 lb 1.92 oz Weight 189 lb 6.4 oz Most Recent Monitor Data Heart Rate from ECG 75 NIBP 149/63 NIBP BP-Mean 91 Respiration from ECG 20 SpO2 94 I&O: 07/15/18 07/16/18 07/17/18 06:59 06:59 06:59 Intake Total 2720 3740 Output Total 1900 1150 Balance 820 2590 Result Diagrams: 07/16/18 03:45 07/16/18 03:45 Phys Exam - Physical Examination Constitutional: NAD HEENT: PERRLA, moist MMs Neck: no JVD, supple fair air entry bilaterally with few right basal crackles. few scattered rhonchi noted. Cardiovascular: RRR systolic murmur noted Gastrointestinal: soft, non-tender, no distention, positive bowel sounds obese Musculoskeletal: no edema, pulses present Neurological: non-focal, moves all 4 limbs Psychiatric: A&O x 3 Dx/Plan (1) Acute respiratory failure with hypoxia Code(s): J96.01 - ACUTE RESPIRATORY FAILURE WITH HYPOXIA Status: Acute Comment: Recurrent and episodic. DDX include vocal cord dysfunction, laryngopharyngeal reflux and silent aspiration. (2) Acute chronic obstructive pulmonary disease with respiratory distress Code(s): J44.9 - CHRONIC OBSTRUCTIVE PULMONARY DISEASE, UNSPECIFIED; R06.03 - ACUTE RESPIRATORY DISTRESS Status: Acute (3) Acute non-ST elevation myocardial infarction (NSTEMI) Code(s): I21.4 - NON-ST ELEVATION (NSTEMI) MYOCARDIAL INFARCTION Status: Acute Comment: Cardiaccath was unremarkable. (4) Acute kidney failure Status: Acute Comment: improving with IVF. (5) Anxiety and depression Code(s): F41.9 - ANXIETY DISORDER, UNSPECIFIED; F32.9 - MAJOR DEPRESSIVE DISORDER, SINGLE EPISODE, UNSPECIFIED Status: Chronic (6) CKD (chronic kidney disease) stage 3, GFR 30-59 ml/min Code(s): N18.3 - CHRONIC KIDNEY DISEASE, STAGE 3 (MODERATE) Status: Chronic Comment: stable (7) GERD (gastroesophageal reflux disease) Code(s): K21.9 - GASTRO-ESOPHAGEAL REFLUX DISEASE WITHOUT ESOPHAGITIS Status: Chronic Comment: stable (8) Pulmonary HTN Code(s): I27.20 - PULMONARY HYPERTENSION, UNSPECIFIED Status: Chronic (9) Sarcoidosis Code(s): D86.9 - SARCOIDOSIS, UNSPECIFIED Status: Chronic - Plan DC IVF and Lovenox anticoagulation -: Start oral augmentin for COPD and possible aspiration pneumonia -: Continue steroid and bronchodilators -: Awaiting PFT -: PT/OT to continue. Monitorrenal function. * .
[2018-07-16] MEDS: Amoxicillin/Potassium Clav 875 MG TAB PO SCH (20:36)
[2018-07-16] MEDS: ALPRAZolam 0.25 MG TAB PO PRN (20:38)
[2018-07-17 04:55] LABS: Anion Gap 10 mmol/L (10-20); BUN (Urea Nitrogen) 45 mg/dL (9.8-20.1); Calc. Creatinine Clearance 52 mL/min (70-130); Calcium 8.7 mg/dL (7.8-10.44); Carbon Dioxide 30 mmol/L (23-31); Chloride 105 mmol/L (98-107); Estimated GFR-MDRD 42; Glucose 229 mg/dL (83-110); Potassium 4.4 mmol/L (3.5-5.1); Sodium 141 mmol/L (136-145)
[2018-07-17 05:04] LABS: Anisocytosis SLIGHT = 6-15 cells (100X) (0-5/hpf); Hemoglobin 9.3 g/dL (12.0-16.0); Hypochromia SLIGHT = 6-15 cells (100X) (0-5/hpf); Lymphocytes 9 % (21-51); MDiff Complete? YES; Mean Corpuscular HGB CONC 30.4 g/dL (32.0-36.0); Mean Corpuscular Hemoglobin 27.4 pg (27.0-31.0); Mean Corpuscular Volume 89.9 fL (78.0-98.0); Mean Platelet Volume 8.6 fL (7.4-10.4); Monocytes 8 % (0-10); Neutrophil 80 % (42-75); Platelet Count 419 thou/uL (130-400); Platelet Morphology Comment Appears Adequate; RBC Distribution Width 17.6 % (11.5-14.5); Reactive Lymphocytes 3 % (0-10); Red Blood Cell (RBC) Count 3.41 mill/uL (4.20-5.40); White Blood Cell (WBC) Count 16.4 thou/uL (4.8-10.8)
[2018-07-17] MEDS ORDERED: Enoxaparin Sodium 40 MG/0.4 ML SYRINGE SC SCH (09:00)
[2018-07-17] MEDS: PARoxetine 20 MG TAB PO SCH (09:08)
[2018-07-17] MEDS: Clopidogrel Bisulfate 75 MG TAB PO SCH (09:08)
[2018-07-17] MEDS: Metoprolol Tartrate 25 MG TAB PO SCH (09:08)
[2018-07-17] MEDS: Aspirin 81 mg Enteric Coated Tablet PO SCH (09:08)
[2018-07-17] MEDS: Pramipexole Di-HCl 0.25 MG TAB PO SCH (09:09)
[2018-07-17] MEDS: methylPREDNISolone Sod Succ 40 MG VIAL IVP SCH (09:10)
[2018-07-17] MEDS: Amoxicillin/Potassium Clav 875 MG TAB PO SCH (09:10)
[2018-07-17] MEDS ORDERED: methylPREDNISolone Sod Succ 40 MG VIAL IVP SCH ×3 (09:36→21:00)
--- NOTE | 2018-07-17 10:00 | PRG ---
DATE OF SERVICE: 07/17/2018 SUBJECTIVE: The patient is up walking julio. Physical therapy does not look to be distressed, but she says she is still having trouble breathing. OBJECTIVE: VITAL SIGNS: Her temperature is 97.7, pulse 85, blood pressure 146/54, and O2 saturation 92%. HEENT: Unremarkable. NECK: She has some coarse breath sounds in her upper airway. LUNGS: Clear peripherally. CARDIAC: S1 and S2, regular. ABDOMEN: Soft. EXTREMITIES: No edema. LABORATORY DATA: White blood cell count 16.4, hematocrit 30.7, and platelet count 419. Sodium 141, potassium 4.4, chloride 105, CO2 of 30, BUN 45, creatinine 1.2, and glucose 229. ASSESSMENT: 1. History of sarcoidosis. 2. Dyspnea - may be somewhat due to fluid overload state. PLAN: IV fluids have been stopped. I will go ahead and reduce her steroid dose today. I am still waiting a pulmonary function test. It is not clear to me why this has not been done. Job ID: [id number]
[2018-07-17] MEDS ORDERED: Iopamidol 370 76% 100 ML VIAL ONE (11:58)
[2018-07-17 12:55] VITALS: BP 161/63
[2018-07-17 16:16] VITALS: TEMP 97.2
--- NOTE | 2018-07-18 07:59 | DIS ---
DATE OF ADMISSION: 07/12/2018 DATE OF DISCHARGE: 07/17/2018 DISCHARGE DIAGNOSES: 1. Acute respiratory failure with hypoxia. 2. Acute non-ST elevation myocardial infarction. 3. Acute on chronic diastolic heart failure. 4. Acute kidney injury. 5. Presumed aspiration pneumonia. 6. Laryngopharyngeal reflux. 7. Gastroesophageal reflux disease. 8. Chronic kidney disease stage 3. 9. Pulmonary hypertension. 10. Sarcoidosis. 11. Chronic obstructive pulmonary disease exacerbation. 12. Obesity. CONSULTS: 1. Pulmonary and Critical Care. 2. Cardiology. PROCEDURES PERFORMED DURING THIS HOSPITALIZATION: 1. Pulmonary function test. 2. Cardiac catheterization. HOSPITAL COURSE: A 77-year-old female with known history of sarcoidosis, which is said to be quiescent; chronic diastolic heart failure; hypertension; and others, who was recently discharged from the hospital following treatment for acute respiratory failure, thought to be from pneumonia as well as congestive heart failure on July 10, readmitted on July 12 due to acute onset of respiratory distress. The patient was found to be hypoxic with SpO2 of 88% on room air. She also reported fever of 101 at home. Further evaluation in the hospital revealed acute kidney injury with creatinine of 1.7, as well as elevated troponin consistent with acute NSTEMI. The patient was started on IV fluids as well as antithrombotic therapy with Lovenox, aspirin, and Plavix as well as steroid bronchodilators and oxygen supplementation. The patient initially received invasive respiratory support (BiPAP) with improvement. Given recurrent hospitalization for respiratory distress and respiratory failure, which seems to be episodic, there was some concern about possible laryngopharyngeal reflex or vocal cord dysfunction. Obstructive sleep apnea with cardiac decompensation was also considered. The patient during prior hospitalization had normal stress tests. There was found to have another NSTEMI. Cardiology consult was obtained and the patient subsequently had cardiac catheterization, which was unremarkable. Pulmonary consult was obtained and pulmonary function test was obtained, the result was pending at the time of discharge. Given history of gastroesophageal reflux disease and laryngopharyngeal reflux was thought to be the major cause of the problem leading to cardiac decompensation. The patient also was found to have right lung crackles as well as infiltrate consistent with aspiration pneumonia. The patient was later started on antibiotics. Oxygen requirement improved such that the patient was saturating upper 90s to 100 on room air. She, however, reported exertional dyspnea. The patient also was found to have physical deconditioning and was felt to be in need of acute inpatient rehabilitation. She was subsequently discharged to inpatient rehab for further restorative therapy. Of note, renal function improved from peak creatinine of 1.7 to 1.2. Diuretics were held during this hospitalization and at discharge as the patient seems euvolemic. Steroid was also weaned down to baseline therapy of 5 mg daily. PHYSICAL EXAMINATION: VITAL SIGNS: BP 161/63, heart rate 61, respiratory rate 15, and SpO2 of 99% on room air. GENERAL: Elderly female, in no obvious distress. Afebrile, anicteric, acyanotic. HEENT: Normocephalic and atraumatic. Pupils are equal and reacting to light. CARDIOVASCULAR: Regular rhythm and rate with normal heart sounds 1 and 2. RESPIRATORY: Fair air entry bilaterally with right basal crackles and few scattered rhonchi. GI: Obese, soft, nontender, nondistended with normal bowel sounds. EXTREMITIES: Grossly normal looking, atraumatic with no edema or erythema. NEUROLOGIC: Conscious, alert, and oriented x3 with appropriate mental status. Cranial nerves 2 through 12 are intact. CONDITION AT DISCHARGE: Improved. DISCHARGE MEDICATIONS: 1. Albuterol HFA 2 puffs inhalation q.4 p.r.n. 2. Metformin 500 mg b.i.d. 3. Metoprolol 25 mg p.o. b.i.d. 4. Paroxetine 25 mg p.o. daily. 5. Mirapex 0.75 mg b.i.d. 6. Albuterol and ipratropium 3 mL nebs q.4 hours while awake. 7. Ipratropium albuterol q.2 hours p.r.n. for shortness of breath. 8. Tramadol 50 mg q.6 hours p.r.n. for pain. 9. Amoxicillin/clavulanic acid 875 mg p.o. b.i.d. for nine days. 10. Acetaminophen 650 mg q.4 hours p.r.n. for pain. 11. Xanax 0.25 mg p.o. b.i.d. p.r.n. for anxiety. 12. Amlodipine 10 mg p.o. daily. 13. Aspirin 81 mg p.o. daily. 14. Plavix 75 mg p.o. daily. 15. Doxycycline 100 mg p.o. b.i.d. for 10 days. 16. Lovenox 40 mg daily. 17. Mucinex 600 mg p.o. b.i.d. 18. Prednisone 5 mg p.o. daily. 19. Seroquel 25 mg p.o. daily at bedtime for insomnia. FOLLOWUP: The patient is to follow up with Pulmonology in two to three weeks. She is also to follow up with smoke tester of her choice in 2 to 3 weeks for further monitoring of CKD. This discharge took more than 40 minutes. Job ID: [id number]
== END 2018-07-17 19:31 | DRG 280 ==
LOC: ERS 12:13 → IMCU/EMU 13:50 → ERS 16:41
PROVIDERS: ADMIT Internal Medicine; ATTEND Internal Medicine
PROC: B2111ZZ Fluoroscopy of Multiple Coronary Arteries using Low Osmolar Contrast (ICD-10-PCS; principal; 2018-07-12)
PROC: 4A023N7 Measurement of Cardiac Sampling and Pressure, Left Heart, Percutaneous Approach (ICD-10-PCS; 2018-07-12)
PROC: B2151ZZ Fluoroscopy of Left Heart using Low Osmolar Contrast (ICD-10-PCS; 2018-07-12)
DX: I21.4 Non-ST elevation (NSTEMI) myocardial infarction (principal); J96.00 Acute respiratory failure, unspecified whether with hypoxia or hypercapnia; I50.31 Acute diastolic (congestive) heart failure; I13.0 Hypertensive heart and chronic kidney disease with heart failure and stage 1 through stage 4 chronic kidney disease, or unspecified chronic kidney disease; N17.9 Acute kidney failure, unspecified; D86.9 Sarcoidosis, unspecified; E11.22 Type 2 diabetes mellitus with diabetic chronic kidney disease; N18.3 Chronic kidney disease, stage 3 (moderate); J44.9 Chronic obstructive pulmonary disease, unspecified; F32.9 Major depressive disorder, single episode, unspecified; G25.81 Restless legs syndrome; Z79.01 Long term (current) use of anticoagulants; F41.9 Anxiety disorder, unspecified; K21.9 Gastro-esophageal reflux disease without esophagitis; I27.20 Pulmonary hypertension, unspecified; G47.00 Insomnia, unspecified; I25.10 Atherosclerotic heart disease of native coronary artery without angina pectoris; Z86.718 Personal history of other venous thrombosis and embolism; Z79.52 Long term (current) use of systemic steroids; Z90.710 Acquired absence of both cervix and uterus; Z95.828 Presence of other vascular implants and grafts; Z95.5 Presence of coronary angioplasty implant and graft; Z90.49 Acquired absence of other specified parts of digestive tract; Z90.81 Acquired absence of spleen; Z88.2 Allergy status to sulfonamides; Z88.1 Allergy status to other antibiotic agents; Z79.84 Long term (current) use of oral hypoglycemic drugs; Z79.899 Other long term (current) drug therapy
CPT/HCPCS: 36415; 71045; 76942; 80048; 80053; 80069; 81001; 82553; 82570; 82805; 83735; 83880; 84156; 84300; 84484; 84540; 85025; 85610; 85730; 89220; 93005; 93454; 93567; 94010; 94640; 94644; 94660; 94727; 94760; 96374; 99152; C1769; J0360; J1644; J1650; J2250; J2920; J2930; J3010; J7608; J7611; J7620; Q9967

== ENCOUNTER 2018-10-15 14:12 | Outpatient (CLI) | payer MEDICARE, BC ==
--- NOTE | 2018-10-15 14:59 | RAD ---
TWO VIEWS OF THE CHEST: 10/15/18 COMPARISON: 07/12/18. HISTORY: Dyspnea. FINDINGS: Two views of the chest show the cardiomediastinal silhouette which is upper limits of normal in size. There is no evidence of consolidation, mass, or pleural effusion. Degenerative changes are seen in t he spine. There are wedge compression fractures and vertebroplasty cement in the spine. The patient h as bilateral shoulder prostheses. IMPRESSION: No evidence of acute cardiopulmonary disease. POS: [facility]
== END 2018-10-15 14:13 | disposition home or self-care (01) ==
LOC: RAD 14:12
PROVIDERS: ATTEND Internal Medicine Critical Care Medicine
DX: R06.00 Dyspnea, unspecified (principal)
CPT/HCPCS: 71046

== ENCOUNTER 2019-02-14 10:31 | Outpatient (CLI) | payer MEDICARE, BC ==
--- NOTE | 2019-02-14 12:21 | RAD ---
2 VIEW CHEST: Date: 02/14/19 COMPARISON: 10/15/18. INDICATION: Dyspnea. FINDINGS: The cardiomediastinal silhouette is stable, as is the pulmonary vasculature. No evidence of consolida tion or significant effusion. No discrete pneumothorax. Chest otherwise similar appearing. Stable kyp hotic deformity of the thoracic spine with multilevel vertebroplasties within remote compression defo rmities. Incidental note of IVC filter. IMPRESSION: Stable chest. There is stable, mild prominence of cardiomediastinal silhouette and mild central pulmo nary vascular prominence. Correlate for evidence of mild CHF. POS: [facility]
== END 2019-02-14 10:32 | disposition home or self-care (01) ==
LOC: RAD 10:31
PROVIDERS: ATTEND Internal Medicine
DX: R06.00 Dyspnea, unspecified (principal)
CPT/HCPCS: 36415; 71046; 83520; 85240; 85250; 85598; 85610; 85613; 85730; 86038; 86146; 86147; 86200; 86225; 86256; 87389

== ENCOUNTER 2019-03-24 19:30 | Outpatient (CLI) | payer MEDICARE, BC | END 2019-03-24 19:31 | disposition home or self-care (01) | LOC: SLEEPLAB 19:30 | PROVIDERS: ATTEND Internal Medicine Critical Care Medicine | DX: G47.33 Obstructive sleep apnea (adult) (pediatric) (principal); R53.83 Other fatigue; G47.00 Insomnia, unspecified; G47.10 Hypersomnia, unspecified; I10 Essential (primary) hypertension; J96.10 Chronic respiratory failure, unspecified whether with hypoxia or hypercapnia | CPT/HCPCS: 95811 ==

== ENCOUNTER 2019-04-23 15:30 | Outpatient (CLI) | payer MEDICARE, BC ==
--- NOTE | 2019-04-23 15:50 | RAD ---
EXAM: Chest 2 views: HISTORY: Dyspnea COMPARISON: 02/14/2019 FINDINGS: There is an enlarged but stable cardiomediastinal silhouette. Atherosclerotic calcifications in the aorta. There is no evidence of consolidation, mass, or pleural effusion. The patient has bilateral shoulder replacements. IMPRESSION: No evidence of acute cardiopulmonary disease
== END 2019-04-23 15:31 | disposition home or self-care (01) ==
LOC: RAD 15:30
PROVIDERS: ATTEND Internal Medicine Critical Care Medicine
DX: R06.00 Dyspnea, unspecified (principal)
CPT/HCPCS: 71046

== ENCOUNTER 2019-09-05 09:16 | Outpatient (CLI) | payer MEDICARE, BC ==
--- NOTE | 2019-09-05 12:38 | RAD ---
TWO VIEWS OF THE CHEST: DATE: 09/05/2019. COMPARISON: 04/23/2019. HISTORY: Shortness of breath with fever. FINDINGS: Increased linear interstitial density noted bilaterally, not significantly changed when compared to t he prior exam. IVC filter present. Bilateral shoulder arthroplasties are noted. Heart and mediasti nal contours are stable. IMPRESSION: Stable appearance of the chest as detailed above. Increased linear interstitial density noted with n o focal consolidation or alveolar edema. If symptoms persist, chest CT may be beneficial. POS: [facility]
== END 2019-09-05 09:17 | disposition home or self-care (01) ==
LOC: RAD 09:16
PROVIDERS: ATTEND Nurse Practitioner Family
DX: R06.02 Shortness of breath (principal); R50.9 Fever, unspecified; R91.8 Other nonspecific abnormal finding of lung field
CPT/HCPCS: 36415; 71046; 80053; 81001; 83036; 83880; 85025; 87086

== ENCOUNTER 2019-09-10 22:56 | Observation (INO) | payer MEDICARE, BC, OTHER ==
[2019-09-10 23:34] LABS: #Basophils 0.1 thou/uL (0.0-0.2); #Eosinphils 0.4 thou/uL (0.0-0.7); #Lymphocytes 4.7 thou/uL (1.20-3.40); #Neutrophils 4.4 thou/uL (1.40-6.50); %Basophils 0.9 % (0.0-1.0); %Eosinophils 3.4 % (0.0-10.0); %Lymphocytes 44.9 % (21.0-51.0); %Monocytes 9.4 % (0.0-10.0); %Neutrophils 41.5 % (42.0-75.0); Hemoglobin 10.5 g/dL (12.0-16.0); Mean Corpuscular HGB CONC 32.1 g/dL (32.0-36.0); Mean Corpuscular Hemoglobin 28.1 pg (27.0-31.0); Mean Corpuscular Volume 87.5 fL (78.0-98.0); Mean Platelet Volume 7.9 fL (7.4-10.4); Platelet Count 524 thou/uL (130-400); RBC Distribution Width 16.1 % (11.5-14.5); Red Blood Cell (RBC) Count 3.75 mill/uL (4.20-5.40); White Blood Cell (WBC) Count 10.5 thou/uL (4.8-10.8)
[2019-09-10 23:57] LABS: ALT (SGPT) 7 U/L (8-55); AST (SGOT) 13 U/L (5-34); Albumin 3.4 g/dL (3.4-4.8); Alkaline Phosphatase 90 U/L (40-110); Anion Gap 13 mmol/L (10-20); BUN (Urea Nitrogen) 11 mg/dL (9.8-20.1); Bilirubin, Total 0.3 mg/dL (0.2-1.2); Calc. Creatinine Clearance 0 mL/min (70-130); Calcium 8.4 mg/dL (7.8-10.44); Carbon Dioxide 23 mmol/L (23-31); Chloride 107 mmol/L (98-107); Estimated GFR-MDRD 32; Globulin 2.5 g/dL (2.4-3.5); Glucose 114 mg/dL (83-110); Potassium 3.2 mmol/L (3.5-5.1); Protein, Total 5.9 g/dL (6.0-8.3); Sodium 140 mmol/L (136-145)
[2019-09-11 00:16] LABS: CKMB 1.2 ng/mL (0-6.6)
[2019-09-11] MEDS ORDERED: Furosemide 40 MG/4 ML VIAL ONE (01:14)
[2019-09-11] MEDS ORDERED: Aspirin Chewable 81 MG TAB ONE (01:14)
[2019-09-11 02:51] LABS: Troponin I 0.032 ng/mL (< 0.028)
[2019-09-11 03:11] VITALS: BMI 36.3
[2019-09-11] MEDS ORDERED: Morphine 2 MG/ML SYRINGE SLOW IVP PRN (04:15)
[2019-09-11] MEDS ORDERED: Ondansetron PF 4 MG/2 ML Vial IVP PRN (04:15)
[2019-09-11] MEDS ORDERED: cloNIDine 0.1 MG TAB PO PRN (04:15)
[2019-09-11] MEDS ORDERED: Promethazine HCl 12.5 MG in Sodium Chloride 0.9% 50 ML IVPB PRN (04:15)
[2019-09-11] MEDS ORDERED: Labetalol HCl 100 MG/20 ML VIAL SLOW IVP PRN (04:15)
[2019-09-11] MEDS ORDERED: hydrALAZINE 20 MG/ML VIAL SLOW IVP PRN (04:15)
[2019-09-11] MEDS ORDERED: Acetaminophen 325 MG TAB PO PRN (04:15)
[2019-09-11] MEDS ORDERED: HYDROcodone/Acetaminophen 5/325 mg Tablet PO PRN (04:15)
[2019-09-11] MEDS ORDERED: cefTRIAXone\\ROCEPHIN 1 GM in Sodium Chloride 0.9% 100 ML IVPB SCH (04:15)
[2019-09-11] MEDS ORDERED: Guaifenesin DM 100-10/5 ML UDCUP PO PRN (04:15)
--- NOTE | 2019-09-11 04:15 | PDOC.HHP ---
Hospitalist HPI - History of Present Illness Shortness of breath History of Present Illness: Patient is a 78 year old female with PMH sarcoidosis who presents to ED for 1 month of shortness of breath, called EMS today and was found tripodding on ground with RR in 40s. Recieved NTG on scene and paste and a bolus, now comfortable on RA, she has sarcoidosis and sees Dr Mazariegos. She takes prednisone chronically. Denies fever, chills, chest pain, cough. Hospitalist ROS - Review of Systems Constitutional: denies: fever, chills, sweats, weakness, malaise, other Eyes: denies: pain, vision change, conjunctivae inflammation, eyelid inflammation, redness, other ENT: denies: ear pain, ear discharge, nose pain, nose discharge, nose congestion , mouth pain, mouth swelling, throat pain, throat swelling, other Respiratory: reports: cough, shortness of breath. denies: dry, hemoptysis, SOB with excertion, pleuritic pain, sputum, wheezing, other Cardiovascular: denies: chest pain, palpitations, orthopnea, paroxysmal noc. dyspnea, edema, light headedness, other Gastrointestinal: denies: nausea, vomiting, abdominal pain, diarrhea, constipation, melena, hematochezia, other Genitourinary: denies: dysuria, frequency, incontinence, hematuria, retention, other Musculoskeletal: denies: neck pain, shoulder pain, arm pain, back pain, hand pain, leg pain, foot pain, other Skin: denies: rash, lesions, gloria, bruising, other Neurological: denies: weakness, numbness, incoordination, change in speech, confusion, seizures, other All other systems reviewed; all pertinent +/- noted in HPI/Subj - Medication Medications: traMADol SunSep 10, 2019 23:32 TALITA Jacobo Miranda TABLET : Strength - 50 mg : ORAL Patient Dose: 1 tab(s) Oral every 6 hours PRN. predniSONE oral SunSep 10, 2019 23:32 TALITA Jacobo Miranda TABLET : Strength - 20 mg : ORAL Patient Dose: 1 tab(s) Oral 2 times a day. pramipexole SunSep 10, 2019 23:32 TALITA Jacobo Miranda TABLET : Strength - 0.75 mg : ORAL Patient Dose: 1 tab(s) Oral 2 times a day. meTOPROLOL tartrate oral SunSep 10, 2019 23:32 TALITA Jacobo Miranda TABLET : Strength - 25 mg : ORAL Patient Dose: See Notes.Unknown Dosage. lisinopril SunSep 10, 2019 23:32 TALITA Jacobo Miranda TABLET : Strength - 10 mg : ORAL Patient Dose: See Notes.Unknown Dosage. Colcrys SunSep 10, 2019 23:32 TALITA Jacobo Miranda TABLET : Strength - 0.6 mg : ORAL Patient Dose: 1 tab(s) Oral 2 times a day. furosemide oral Marci Sep 11, 2019 02:17 TALITA Jacobo Miranda tablet : Strength - 40 mg : ORAL Patient Dose: 1 tab(s) Oral once a day. Hospitalist History - Past Medical History Other Medical History: SARCOIDOSIS, Past medical history includes history of hypertension, which has been treated, Past medical history includes renal disease, STAGE 3 RENAL DISEASE. . BLOOD CLOTS IN RIGHT GROIN, CHF. - Past Surgical History Other Surgical History: Surgical history of hysterectomy. filter for blood clots in right groin, BACK SURGERY, "REVERSE SHOULDER SURGERY". - Family History Family History: reports: no pertinent history - Social History Smoking Status: Never smoker Alcohol: reports: None Drugs: reports: none - Exam General Appearance: NAD, awake alert Eye: PERRL, anicteric sclera ENT: normocephalic atraumatic, no oropharyngeal lesions, moist mucosa Neck: supple, symmetric, no JVD, no thyromegaly, no lymphadenopathy, no carotid bruit Heart: RRR, no murmur, no gallops, no rubs, normal peripheral pulses Respiratory: CTAB, no wheezes, no rales, no ronchi, normal chest expansion, no tachypnea, normal percussion Gastrointestinal: soft, non-tender, non-distended, normal bowel sounds, no palpable masses, no hepatomegaly, no splenomegaly, no bruit Extremities: no cyanosis, no clubbing, no edema Skin: normal turgor, no lesions, no rashes Neurological: cranial nerve grossly intact, normal sensation to touch, no weakness, no focal deficits, no new deficit Musculoskeletal: normal tone, normal strength, no muscle wasting Psychiatric: normal affect, normal behavior, A&O x 3 Hospitalist Results - Labs Result Diagrams: 09/10/19 23:22 09/10/19 23:23 Lab results: WBC 10.5 thou/uL (4.8-10.8) 09/10/19 23:22 Hgb 10.5 g/dL (12.0-16.0) L 09/10/19 23:22 Hct 32.9 % (36.0-47.0) L 09/10/19 23:22 MCV 87.5 fL (78.0-98.0) 09/10/19 23:22 Plt Count 524 thou/uL (130-400) H 09/10/19 23:22 Neutrophils % 41.5 % (42.0-75.0) L 09/10/19 23:22 Sodium 140 mmol/L (136-145) 09/10/19 23:23 Potassium 3.2 mmol/L (3.5-5.1) L 09/10/19 23:23 Chloride 107 mmol/L (98-107) 09/10/19 23:23 Carbon Dioxide 23 mmol/L (23-31) 09/10/19 23:23 BUN 11 mg/dL (9.8-20.1) 09/10/19 23:23 Creatinine 1.55 mg/dL (0.6-1.1) H 09/10/19 23:23 Glucose 114 mg/dL (83-110) H 09/10/19 23:23 Calcium 8.4 mg/dL (7.8-10.44) 09/10/19 23:23 Total Bilirubin 0.3 mg/dL (0.2-1.2) 09/10/19 23:23 AST 13 U/L (5-34) 09/10/19 23:23 ALT 7 U/L (8-55) L 09/10/19 23:23 Alkaline Phosphatase 90 U/L (40-110) 09/10/19 23:23 CK-MB (CK-2) 1.2 ng/mL (0-6.6) 09/10/19 23:22 Troponin I 0.032 ng/mL (< 0.028) H 09/11/19 02:19 B-Natriuretic Peptide 213.6 pg/mL (0-100) H 09/10/19 23:22 Serum Total Protein 5.9 g/dL (6.0-8.3) L 09/10/19 23:23 Albumin 3.4 g/dL (3.4-4.8) 09/10/19 23:23 Additional comment: VITAL SIGNS SunSep 10, 2019 23:32 TALITA Jacobo Miranda BP: 121/77 Pulse: 87 Resp: 28 Pain: 0 O2 sat: 92 on (Room Air) Time: 09/10/2019 23:32. VITAL SIGNS SunSep 10, 2019 23:02 TALITA Jacobo Miranda BP: 146/75 Pulse: 92 Resp: 17 O2 sat: 97 on (Room Air) Time: 09/10/2019 23:02. VITAL SIGNS SunSep 10, 2019 23:15 TALITA Jacobo Miranda Temp: 97.9 (Oral) Time: 09/10/2019 23:15. VITAL SIGNS [facility] Sep 11, 2019 00:00 TALITA Jacobo Miranda BP: 135/87 Pulse: 90 Resp: 15 O2 sat: 94 on (Room Air) Time: 09/11/2019 00:00. Hospitalist H&P A/P - Plan Plan: Patient is a 78 year old female with PMH sarcoidosis who presents to ED for 1 month of shortness of breath. # shortness of breath # history of sarcoidosis # elevated troponin - admit to floor - consult pulmonary Dr Mazariegos - start steroids, azithromycin, ceftriaxone - follow final CXR # history of CKD - trend BMP, avoid nephrotoxins # history of peripheral DVTs and IVC filter - DVT ppx, resume home antiplatelet
[2019-09-11] MEDS ORDERED: Azithromycin 500 MG in Syringe 0 ML IVPB ONE (04:20)
[2019-09-11] MEDS ORDERED: ALPRAZolam 0.25 MG TAB PO PRN (04:40)
[2019-09-11] MEDS ORDERED: Albuterol 200 PUFF (6.7GM INHALER) INH PRN (04:40)
[2019-09-11] MEDS ORDERED: Azithromycin 500 MG in Sodium Chloride 0.9% 250 ML 250 ML IVPB SCH (04:45)
[2019-09-11] MEDS ORDERED: methylPREDNISolone Sod Succ 40 MG VIAL IVP SCH ×2 (06:00→07:52)
--- NOTE | 2019-09-11 07:36 | RAD ---
CHEST 1 VIEW: Date: 09/10/2019 HISTORY: Difficulty breathing. COMPARISON: Radiograph dated 09/05/2019. FINDINGS: Pulmonary arteries are dilated. Dense calcification of the aorta. Heart size upper limits normal. No confluent air space consolidation, pneumothorax, or effusion. IMPRESSION: No acute intrathoracic abnormality. POS: HOME
[2019-09-11] MEDS ORDERED: Dextrose 50% Abboject 50 ML SYRINGE SLOW IVP PRN (08:00)
[2019-09-11] MEDS ORDERED: HumaLOG 300 UNITS/3 ML VIAL SC PRN (08:00)
[2019-09-11] MEDS ORDERED: Dextrose 5% in Water 1,000 ML IV PRN (08:00)
[2019-09-11] MEDS ORDERED: Potassium Chloride 20 MEQ TAB PO SCH (08:00)
[2019-09-11] MEDS: Polyethylene Glycol 3350 17 GM Packet PO SCH (08:29)
[2019-09-11] MEDS: Aspirin 81 mg Enteric Coated Tablet PO SCH (08:30)
[2019-09-11] MEDS: Amlodipine 10 MG TAB PO SCH (08:30)
[2019-09-11] MEDS: Pramipexole Di-HCl 0.25 MG TAB PO SCH ×2 (08:30→20:01)
[2019-09-11] MEDS: PARoxetine 20 MG TAB PO SCH (08:30)
[2019-09-11] MEDS: metFORMIN 500 MG TAB PO SCH ×2 (08:30→17:39)
[2019-09-11] MEDS: Famotidine 20 MG TAB PO SCH ×2 (08:30→19:55)
[2019-09-11] MEDS: Metoprolol Tartrate 25 MG TAB PO SCH ×2 (08:31→19:56)
[2019-09-11] MEDS: guaiFENesin ER 600 MG TAB PO SCH ×2 (08:31→19:56)
[2019-09-11] MEDS: Clopidogrel Bisulfate 75 MG TAB PO SCH (08:31)
[2019-09-11] MEDS ORDERED: Azithromycin 250 MG TAB PO SCH (09:00)
--- NOTE | 2019-09-11 10:35 | PDOC.HOSPP ---
- Subjective Encounter Date: 09/11/19 Encounter Time: 07:30 Subjective: Patient seen and examined. pt c/o shortness of breath with exertion, she is on 2 -3 lit nasal cannula oxygen, No overnight events - Objective Vital Signs & Weight: Vital Signs (12 hours) Temp Pulse Resp BP Pulse Ox 09/11/19 08:00 98 F 82 20 127/71 94 L 09/11/19 05:49 98.5 F 86 18 145/69 H 96 09/11/19 02:35 98.0 F 83 16 166/80 H 96 Weight Weight 198 lb 9.6 oz Result Diagrams: 09/10/19 23:22 09/10/19 23:23 Additional Labs: Accuchecks 09/11/19 08:46 POC Glucose 119 H Radiology Reviewed by me: Yes EKG Reviewed by me: Yes Hospitalist ROS - Review of Systems Constitutional: reports: weakness. denies: fever, chills, sweats, malaise, other ENT: denies: ear pain, ear discharge, nose pain, nose discharge, nose congestion , mouth pain, mouth swelling, throat pain, throat swelling, other Respiratory: reports: shortness of breath, SOB with excertion. denies: cough, dry, hemoptysis, pleuritic pain, sputum, wheezing, other Cardiovascular: denies: chest pain, palpitations, orthopnea, paroxysmal noc. dyspnea, edema, light headedness, other Gastrointestinal: denies: nausea, vomiting, abdominal pain, diarrhea, constipation, melena, hematochezia, other Genitourinary: denies: dysuria, frequency, incontinence, hematuria, retention, other Musculoskeletal: denies: neck pain, shoulder pain, arm pain, back pain, hand pain, leg pain, foot pain, other Skin: denies: rash, lesions, gloria, bruising, other - Medication Medications: Active Medications Generic Name Dose Route Start Last Admin Trade Name Freq PRN Reason Stop Dose Admin Amlodipine Besylate 10 mg 09/11/19 09:00 09/11/19 08:30 Norvasc PO 10 mg DAILY DENY Administration Aspirin 81 mg 09/11/19 09:00 09/11/19 08:30 Ecotrin PO 81 mg DAILY DENY Administration Clopidogrel Bisulfate 75 mg 09/11/19 09:00 09/11/19 08:31 Plavix PO 75 mg DAILY DENY Administration Famotidine 20 mg 09/11/19 09:00 09/11/19 08:30 Pepcid PO 20 mg BID DENY Administration Guaifenesin 600 mg 09/11/19 09:00 09/11/19 08:31 Mucinex PO 600 mg BID DENY Administration Metformin HCl 500 mg 09/11/19 08:00 09/11/19 08:30 Glucophage PO 500 mg BID-WM DENY Administration Metoprolol Tartrate 25 mg 09/11/19 09:00 09/11/19 08:31 Lopressor PO 25 mg BID DENY Administration Ondansetron HCl 4 mg 09/11/19 04:15 09/11/19 05:03 Zofran IVP 4 mg Q6H PRN Administration Nausea/Vomiting use 1st Paroxetine HCl 20 mg 09/11/19 09:00 09/11/19 08:30 Paxil PO 20 mg DAILY DENY Administration Polyethylene Glycol 17 gm 09/11/19 09:00 09/11/19 08:29 Miralax PO 17 gm DAILY DENY Administration Pramipexole Dihydrochloride 0.75 mg 09/11/19 09:00 09/11/19 08:30 Mirapex PO 0.75 mg BID DENY Administration - Exam General Appearance: NAD, awake alert Eye: PERRL, anicteric sclera ENT: normocephalic atraumatic, no oropharyngeal lesions Neck: supple, symmetric, no JVD, no thyromegaly Heart: RRR, murmur present, II/IV Respiratory: no wheezes, no rales Gastrointestinal: soft, non-tender, non-distended, normal bowel sounds Gastrointestinal - other findings: obesity noted Extremities: no cyanosis, no clubbing, no edema Skin: normal turgor, no lesions Neurological: cranial nerve grossly intact, no focal deficits Musculoskeletal: normal tone, normal strength Psychiatric: normal affect, normal behavior Hosp A/P (1) Acute respiratory failure with hypoxia Code(s): J96.01 - ACUTE RESPIRATORY FAILURE WITH HYPOXIA Status: Acute (2) Acute on chronic diastolic ACC/AHA stage C congestive heart failure Code(s): I50.33 - ACUTE ON CHRONIC DIASTOLIC (CONGESTIVE) HEART FAILURE Status : Acute (3) Anxiety and depression Code(s): F41.9 - ANXIETY DISORDER, UNSPECIFIED; F32.9 - MAJOR DEPRESSIVE DISORDER, SINGLE EPISODE, UNSPECIFIED Status: Chronic (4) CKD (chronic kidney disease) stage 3, GFR 30-59 ml/min Code(s): N18.3 - CHRONIC KIDNEY DISEASE, STAGE 3 (MODERATE) Status: Chronic (5) Diabetes type 2, controlled Code(s): E11.9 - TYPE 2 DIABETES MELLITUS WITHOUT COMPLICATIONS Status: Chronic Qualifiers: Diabetes mellitus terminal clerk insulin use: without nursing home use Diabetes mellitus complication status: with kidney complications Diabetes mellitus complication detail: with chronic kidney disease Chronic kidney disease stage : stage 3 (moderate) Qualified Code(s): E11.22 - Type 2 diabetes mellitus with diabetic chronic kidney disease; N18.3 - Chronic kidney disease, stage 3 ( moderate) (6) Dyslipidemia Code(s): E78.5 - HYPERLIPIDEMIA, UNSPECIFIED Status: Chronic (7) GERD (gastroesophageal reflux disease) Code(s): K21.9 - GASTRO-ESOPHAGEAL REFLUX DISEASE WITHOUT ESOPHAGITIS Status: Chronic (8) Hypertension Code(s): I10 - ESSENTIAL (PRIMARY) HYPERTENSION Status: Chronic Qualifiers: (9) Obesity (BMI 30-39.9) Code(s): E66.9 - OBESITY, UNSPECIFIED Status: Chronic (10) Pulmonary HTN Code(s): I27.20 - PULMONARY HYPERTENSION, UNSPECIFIED Status: Chronic (11) Restless leg syndrome Status: Chronic (12) Sarcoidosis Code(s): D86.9 - SARCOIDOSIS, UNSPECIFIED Status: Chronic (13) Elevated troponin level Code(s): R79.89 - OTHER SPECIFIED ABNORMAL FINDINGS OF BLOOD CHEMISTRY Status : Chronic (14) Anemia, normocytic normochromic Code(s): D64.9 - ANEMIA, UNSPECIFIED Status: Chronic - Plan old records reviewed/req, continue antibiotics, respiratory therapy wean off oxygen as tolerated continue empiric rocephin and azithromycin, I doubt pt has any pneumonia pulmonary has been consulted await covid-19 test result will add lasix 20 mg IV BID Potassium replaced, continue solumedrol add insulin as per sliding scale medication reviewed, supportive care, symptomatic treatment will monitor today in hospital will reevaluate tomorrow will repeat labs tomorrow
[2019-09-11 11:13] LABS: Troponin I 0.025 ng/mL (< 0.028)
[2019-09-11] MEDS: methylPREDNISolone Sod Succ 40 MG VIAL IVP SCH ×3 (11:44→23:18)
[2019-09-11] MEDS: HumaLOG 300 UNITS/3 ML VIAL SC PRN ×2 (12:00→16:50)
[2019-09-11] MEDS: traMADol HCl 50 MG TAB PO PRN ×2 (12:01→23:18)
[2019-09-11] MEDS: Furosemide 20 MG/2 ML VIAL SLOW IVP SCH (14:55)
--- NOTE | 2019-09-11 15:25 | CON ---
DATE OF CONSULTATION: 09/11/2019 CONSULTING PHYSICIAN: Hospitalist Group. REASON FOR CONSULTATION: Hypoxemia and shortness of breath. HISTORY OF PRESENT ILLNESS: The patient is a 78-year-old female, who is well known to my practice. She comes into the hospital with a one month history of increasing shortness of breath. She said that she had a fever last week up to 101, she has not left the house since the COVID-19 pandemic started and knows of no exposures. She says her home oxygen concentrator stopped working about 3 weeks ago. She made one phone call to the oxygen company. No one came out and she did not follow up further. She has multiple pulmonary issues at hand including pulmonary hypertension, chronic pulmonary thromboemboli, obesity, sleep apnea, and sarcoidosis. It is my belief that the sarcoid is not playing a significant component. I also suspect the patient has diastolic heart dysfunction. PAST MEDICAL HISTORY: See above. Additionally, she has diabetes mellitus, history of chronic kidney disease, and hypertension. PAST SURGICAL HISTORY: 1. Splenectomy. 2. IVC filter placement. 3. Cholecystectomy. 4. Hysterectomy. SOCIAL HISTORY: Nonsmoker. Does not consume alcohol. Does not use illicit drugs. ALLERGIES: BACTRIM. FAMILY MEDICAL HISTORY: Remarkable for diabetes and coronary artery disease. MEDICATIONS: Prior to admission; 1. Mucinex. 2. Norvasc. 3. ProAir. 4. Tylenol. 5. Xanax. 6. Plavix. 7. Aspirin. 8. Seroquel. 9. Mirapex. 10. Paroxetine. 11. Lopressor. 12. DuoNeb. 13. Tramadol. 14. Prednisone 5 mg daily. 15. Metformin 500 mg b.i.d. Current inpatient medications; 1. Tylenol. 2. ProAir. 3. Xanax. 4. Norvasc. 5. Ecotrin. 6. Zithromax. 7. Ceftriaxone. 8. Catapres. 9. Plavix. 10. Pepcid. 11. Mucinex. 12. Robitussin DM. 13. Lopressor. 14. Morphine. 15. Zofran. 16. Paxil. 17. Mirapex. 18. Seroquel. 19. Tramadol. REVIEW OF SYSTEMS: She says she has had a low-grade fever. No chills. No nausea. No vomiting. No chest pain. No hematemesis, melena, hematochezia, hematuria, or dysuria. PHYSICAL EXAMINATION: VITAL SIGNS: Her temperature is 98.0, pulse 82, respirations 20, O2 saturation 94% on room air, blood pressure 127/71. GENERAL: She appears in absolutely no distress. HEENT: Unremarkable. NECK: No adenopathy or JVD. LUNGS: She has inspiratory crackles in both bases. CARDIAC: S1 and S2, regular without audible murmur. ABDOMEN: Soft and nontender. EXTREMITIES: No clubbing, cyanosis, or edema. LABORATORY DATA: BNP level is 213. Troponin 0.04. Sodium 140, potassium 3.2, chloride 107, CO2 of 23, BUN 11, creatinine 1.5, and glucose 114. White blood cell count 10.5, hematocrit 32.9, and platelet count 524. A chest film demonstrates no acute intrathoracic abnormality. ASSESSMENT: Multifactorial dyspnea. This patient has a history of diastolic heart dysfunction, pulmonary hypertension, obstructive sleep apnea, chronic thromboembolic disease, and sarcoidosis. I do not think she is currently suffering from acute pneumonia. I think the correctable factors for the time being would be to get home concentrator set up or repair of the existing one. I have encouraged her to keep her followup with pulmonary hypertension specialist in [place], Dr. Savage. I think it would be reasonable to do a short course of antibiotics. I would also agree with a trial of diuresis on this patient. She has been put on COVID status. I would be surprised if she comes back COVID positive. As far as the steroids are concerned, I would wean this down to her baseline 5 mg very rapidly as I do not see any evidence of bronchospasm, and again I doubt active sarcoid is the cause of her problems. The above encompassed 70 minutes of time, of that time, greater 50% spent with the patient and/or the patient's unit in the hospital. Job ID: [id number]
[2019-09-11 17:55] LABS: Troponin I 0.027 ng/mL (< 0.028)
[2019-09-11 18:18] LABS: SARS-CoV-2 MS2 Positive; SARS-CoV-2 N Gene Negative; SARS-CoV-2 S Gene Negative; SARS-CoV-2 orf1ab Negative
[2019-09-12 05:24] LABS: #Lymphocytes 1.9 thou/uL (1.20-3.40); #Monocytes 0.1 thou/uL (0.11-0.59); %Basophils 0.1 % (0.0-1.0); %Eosinophils 0.1 % (0.0-10.0); %Monocytes 2.2 % (0.0-10.0); %Neutrophils 66.6 % (42.0-75.0); Hemoglobin 10.3 g/dL (12.0-16.0); Mean Corpuscular HGB CONC 31.2 g/dL (32.0-36.0); Mean Corpuscular Hemoglobin 27.4 pg (27.0-31.0); Mean Corpuscular Volume 87.8 fL (78.0-98.0); Mean Platelet Volume 7.9 fL (7.4-10.4); Platelet Count 576 thou/uL (130-400); RBC Distribution Width 15.9 % (11.5-14.5); Red Blood Cell (RBC) Count 3.75 mill/uL (4.20-5.40); White Blood Cell (WBC) Count 6.1 thou/uL (4.8-10.8)
[2019-09-12] MEDS: Furosemide 20 MG/2 ML VIAL SLOW IVP SCH (05:47)
[2019-09-12] MEDS: methylPREDNISolone Sod Succ 40 MG VIAL IVP SCH ×2 (05:47→11:40)
[2019-09-12 05:49] LABS: Anion Gap 12 mmol/L (10-20); BUN (Urea Nitrogen) 22 mg/dL (9.8-20.1); Calc. Creatinine Clearance 35 mL/min (70-130); Calcium 8.7 mg/dL (7.8-10.44); Carbon Dioxide 27 mmol/L (23-31); Chloride 104 mmol/L (98-107); Estimated GFR-MDRD 26; Glucose 170 mg/dL (83-110); Magnesium 1.4 mg/dL (1.6-2.6); Sodium 139 mmol/L (136-145)
[2019-09-12] MEDS: HumaLOG 300 UNITS/3 ML VIAL SC PRN (05:50)
[2019-09-12] MEDS: Pramipexole Di-HCl 0.25 MG TAB PO SCH (07:22)
[2019-09-12] MEDS: Aspirin 81 mg Enteric Coated Tablet PO SCH (07:22)
[2019-09-12] MEDS: Famotidine 20 MG TAB PO SCH (07:22)
[2019-09-12] MEDS: PARoxetine 20 MG TAB PO SCH (07:23)
[2019-09-12] MEDS: guaiFENesin ER 600 MG TAB PO SCH (07:23)
[2019-09-12] MEDS: Metoprolol Tartrate 25 MG TAB PO SCH (07:23)
[2019-09-12] MEDS: Clopidogrel Bisulfate 75 MG TAB PO SCH (07:23)
[2019-09-12] MEDS: metFORMIN 500 MG TAB PO SCH (07:23)
[2019-09-12] MEDS: cefTRIAXone\\ROCEPHIN 1 GM in Sodium Chloride 0.9% 100 ML IVPB SCH ×2 (07:24→08:06)
[2019-09-12] MEDS: Polyethylene Glycol 3350 17 GM Packet PO SCH (07:24)
[2019-09-12] MEDS: Amlodipine 10 MG TAB PO SCH (07:24)
[2019-09-12] MEDS: traMADol HCl 50 MG TAB PO PRN (07:33)
--- NOTE | 2019-09-12 08:33 | PDOC.EVN ---
Event Note - Event Note Event Note: Chart reviewed as Physician Advisor and discussed with Dr. Lee - presentation does not meet IP criteria and I support a change to observation status.
[2019-09-12] MEDS ORDERED: Azithromycin 250 MG TAB PO SCH (09:00)
[2019-09-12] MEDS ORDERED: Magnesium Oxide 400 MG TAB PO SCH (10:00)
--- NOTE | 2019-09-12 10:02 | DIS ---
DATE OF ADMISSION: 09/11/2019 DATE OF DISCHARGE: 09/12/2019 PRIMARY CARE PHYSICIAN: DISCHARGE DISPOSITION: Home. PRIMARY DISCHARGE DIAGNOSES: 1. Acute on chronic diastolic congestive heart failure. 2. Acute on chronic respiratory failure, hypomagnesemia, replaced. SECONDARY DISCHARGE DIAGNOSES: 1. Sarcoidosis, pulmonary hypertension, obesity with BMI 36, hypertension, chronic anemia, gastroesophageal reflux disease, diabetes type 2, dyslipidemia, history of compression fracture. 2. Chronic kidney disease, stage 3, anxiety and depression, COPD. 3. Gout. 4. Chronic diastolic heart failure. PRIMARY PROCEDURE/OPERATION: None. RADIOLOGICAL INVESTIGATION: Chest x-ray showed no acute cardiopulmonary process. Echocardiography. SIGNIFICANT LABORATORY DATA: CBC; WBC 6.1, hemoglobin 10.3, platelet 576. BMP; sodium 139, potassium 4.0, BUN 22, creatinine 1.90, calcium 8.7, magnesium 1.4. COVID-19 negative. DISCHARGE MEDICATIONS: 1. ProAir two puffs q.4 hourly p.r.n. 2. Metformin 500 mg b.i.d. 3. Metoprolol 25 mg p.o. b.i.d. 4. Paroxetine 20 mg daily. 5. DuoNeb q.4 hourly. 6. Tramadol 50 mg q.8 hourly p.r.n. 7. Xanax 0.25 mg p.o. b.i.d. p.r.n. 8. Amlodipine 10 mg daily. 9. Aspirin 81 mg daily. 10. Azithromycin 250 mg p.o. daily for 5 days. 11. Plavix 75 mg p.o. daily. 12. Lasix 20 mg p.o. b.i.d. 13. Mucinex 600 mg p.o. b.i.d. 14. Mirapex 0.75 mg p.o. b.i.d. 15. Prednisone 20 mg p.o. b.i.d. for 5 days and 5 mg p.o. daily. 16. Seroquel 25 mg p.o. at bedtime. 17. Plavix 75 mg p.o. daily. CONTRAINDICATION: None. CODE STATUS: Full code. INPATIENT WEBSITE DEVELOPER: Dr. Pierce was consulted while in hospital. TEST RESULTS PENDING ON DISCHARGE: None. ALLERGIES: SULFA DRUGS. DISCHARGE PLAN: Post hospital, the patient will follow up with primary care physician as well as Pulmonary Hypertension Clinic in [place]. HOSPITAL COURSE: A 78-year-old female with above-mentioned medical problem, who was admitted by Dr. Robert Clemens. Please see his H and P for further details. The patient was admitted for increasing shortness of breath. The patient was tachypneic. Her chest x-ray was unremarkable. We suspected her COPD flare-up. We treated her with Solu-Medrol and respiratory therapy while in hospital. Empiric antibiotic therapy was given. Pulmonology was consulted and they evaluated this patient and they are well aware with this patient and they thought that the patient is up to her baseline level. We suspected her diastolic heart failure flare-up and that was why we started Lasix. The patient had significant improvement. Initially, she was requiring oxygen, but by the time of discharge she was no longer on oxygen. She had hypomagnesemia that is replaced. On discharge, we are giving her prednisone for 5 days and then she will resume her regular dose of prednisone. We are replacing magnesium. We are giving azithromycin 250 mg p.o. daily for 5 more days. Lasix added. As she ran out of tramadol and Mirapex which was prescribed on discharge. Rest of medications she will continue as per previous. PHYSICAL EXAMINATION: I have seen and examined the patient bedside today. VITAL SIGNS: Currently, temperature 98.0, pulse 67, respiratory rate 18, saturation 92% on room air, blood pressure 137/64, weight 198 pounds. GENERAL: The patient is currently alert, awake, in no acute distress. HEENT: Head, normocephalic and atraumatic. NECK: Supple. No JVD. No meningeal signs of irritation. LUNGS: Clear to auscultation without any rhonchi or rales. CARDIAC: S1 and S2 regular. No murmur. No gallop. No rub. ABDOMEN: Soft, bowel sounds present, nontender, nondistended. No organomegaly. No mass. EXTREMITIES: No edema. SKIN: No skin rash. HEMATOLOGICAL SYSTEM: No lymphadenopathy. NEUROLOGIC: Nonfocal examination. Overall, the patient is medically stable for discharge. This patient was admitted inpatient status, but she was not qualifying for an inpatient status and SOS status was changed to observation. Job ID: [id number]
--- NOTE | 2019-09-12 10:37 | PRG ---
DATE OF SERVICE: 09/12/2019 SUBJECTIVE: The patient is doing well, supposed to go home as her oxygen setup. OBJECTIVE: VITAL SIGNS: Temperature 98, pulse 67, respiration rate 18, O2 sat 92%, and blood pressure 137/64. HEENT: Unremarkable. NECK: No adenopathy or JVD. CHEST: Fairly clear. CARDIAC: S1 and S2, regular. ABDOMEN: Soft. EXTREMITIES: No edema. ASSESSMENT: Multifactorial dyspnea. PLAN: Home oxygen has been setup. She will see pulmonary hypertension specialist in 2 weeks. Job ID: [id number]
--- NOTE | 2019-09-12 10:40 | PDOC.HOSPP ---
- Subjective Encounter Date: 09/12/19 Encounter Time: 08:15 Subjective: Patient seen and examined. No new complaints. No overnight events - Objective Vital Signs & Weight: Vital Signs (12 hours) Temp Pulse Resp BP BP Pulse Ox 09/12/19 07:05 98.0 F 67 18 137/64 92 L 09/12/19 05:27 98.2 F 64 20 134/62 92 L 09/11/19 23:00 97.9 F 63 18 131/63 95 Weight Weight 215 lb 11.2 oz I&O: 09/11/19 09/12/19 09/13/19 06:59 06:59 06:59 Intake Total 1463 Balance 1463 Result Diagrams: 09/12/19 05:12 09/12/19 05:12 Additional Labs: Accuchecks 09/12/19 09/11/19 09/11/19 05:54 20:09 16:50 POC Glucose 182 H 199 H 162 H 09/11/19 11:56 POC Glucose 208 H Radiology Reviewed by me: Yes EKG Reviewed by me: Yes Hospitalist ROS - Review of Systems ENT: denies: ear pain, ear discharge, nose pain, nose discharge, nose congestion , mouth pain, mouth swelling, throat pain, throat swelling, other Respiratory: denies: cough, dry, shortness of breath, hemoptysis, SOB with excertion, pleuritic pain, sputum, wheezing, other Cardiovascular: denies: chest pain, palpitations, orthopnea, paroxysmal noc. dyspnea, edema, light headedness, other Gastrointestinal: denies: nausea, vomiting, abdominal pain, diarrhea, constipation, melena, hematochezia, other Genitourinary: denies: dysuria, frequency, incontinence, hematuria, retention, other Musculoskeletal: denies: neck pain, shoulder pain, arm pain, back pain, hand pain, leg pain, foot pain, other - Medication Medications: Active Medications Generic Name Dose Route Start Last Admin Trade Name Freq PRN Reason Stop Dose Admin Acetaminophen 650 mg 09/11/19 04:15 09/11/19 14:55 Tylenol PO 650 mg Q4H PRN Administration Headache/Fever/Mild Pain (1-3) Amlodipine Besylate 10 mg 09/11/19 09:00 09/12/19 07:24 Norvasc PO 10 mg DAILY DENY Administration Aspirin 81 mg 09/11/19 09:00 09/12/19 07:22 Ecotrin PO 81 mg DAILY DENY Administration Azithromycin 250 mg 09/12/19 09:00 09/12/19 07:23 Zithromax PO 09/15/19 09:01 250 mg DAILY DENY Administration Clopidogrel Bisulfate 75 mg 09/11/19 09:00 09/12/19 07:23 Plavix PO 75 mg DAILY DENY Administration Famotidine 20 mg 09/11/19 09:00 09/12/19 07:22 Pepcid PO 20 mg BID [facility] Administration Furosemide 20 mg 09/11/19 14:00 09/12/19 05:47 Lasix SLOW IVP 20 mg 0600,1400 [facility] Administration Guaifenesin 600 mg 09/11/19 09:00 09/12/19 07:23 Mucinex PO 600 mg BID [facility] Administration Ceftriaxone Sodium 1 gm/ 100 mls @ 200 mls/hr 09/12/19 09:00 09/12/19 08:06 Sodium Chloride IVPB Not Given 0900 [facility] Insulin Human Lispro 0 units 09/11/19 08:00 09/12/19 05:50 Humalog SC 2 units .MODERATE SLIDING SC PRN Administration Moderate Correctional Scale Magnesium Oxide 400 mg 09/12/19 10:00 09/12/19 10:01 Magnesium Oxide PO 09/12/19 12:00 400 mg NOW [facility] Administration Metformin HCl 500 mg 09/11/19 08:00 09/12/19 07:23 Glucophage PO 500 mg BID-WM [facility] Administration Methylprednisolone Sodium Succinate 40 mg 09/11/19 12:00 09/12/19 05:47 Solu-Medrol IVP 40 mg Q6HR [facility] Administration Metoprolol Tartrate 25 mg 09/11/19 09:00 09/12/19 07:23 Lopressor PO 25 mg BID [facility] Administration Ondansetron HCl 4 mg 09/11/19 04:15 09/11/19 05:03 Zofran IVP 4 mg Q6H PRN Administration Nausea/Vomiting use 1st Paroxetine HCl 20 mg 09/11/19 09:00 09/12/19 07:23 Paxil PO 20 mg DAILY DENY Administration Polyethylene Glycol 17 gm 09/11/19 09:00 09/12/19 07:24 Miralax PO 17 gm DAILY [facility] Administration Pramipexole Dihydrochloride 0.75 mg 09/11/19 09:00 09/12/19 07:22 Mirapex PO 0.75 mg BID DENY Administration Quetiapine Fumarate 25 mg 09/11/19 21:00 09/11/19 19:56 Seroquel PO 25 mg HS DENY Administration Sodium Chloride 10 ml 09/11/19 21:00 09/12/19 07:25 Flush - Normal Saline IVF 10 ml Q12HR DENY Administration Sodium Chloride 10 ml 09/11/19 10:41 09/12/19 05:56 Flush - Normal Saline IVF 10 ml PRN PRN Administration Saline Flush Tramadol HCl 50 mg 09/11/19 07:51 09/12/19 07:33 Ultram PO 50 mg Q6H PRN Administration Moderate Pain (4-6) - Exam General Appearance: NAD, awake alert Eye: PERRL, anicteric sclera ENT: normocephalic atraumatic, no oropharyngeal lesions Neck: supple, symmetric, no JVD Heart: RRR, no murmur, no gallops, no rubs Respiratory: CTAB, no wheezes, no rales Gastrointestinal: soft, non-tender, non-distended, normal bowel sounds Extremities: no cyanosis, no clubbing Skin: normal turgor, no lesions Neurological: no focal deficits Musculoskeletal: normal tone, normal strength Psychiatric: normal affect, normal behavior Hosp A/P (1) Acute respiratory failure with hypoxia Code(s): J96.01 - ACUTE RESPIRATORY FAILURE WITH HYPOXIA Status: Acute (2) Acute on chronic diastolic ACC/AHA stage C congestive heart failure Code(s): I50.33 - ACUTE ON CHRONIC DIASTOLIC (CONGESTIVE) HEART FAILURE Status : Acute (3) Anxiety and depression Code(s): F41.9 - ANXIETY DISORDER, UNSPECIFIED; F32.9 - MAJOR DEPRESSIVE DISORDER, SINGLE EPISODE, UNSPECIFIED Status: Chronic (4) CKD (chronic kidney disease) stage 3, GFR 30-59 ml/min Code(s): N18.3 - CHRONIC KIDNEY DISEASE, STAGE 3 (MODERATE) Status: Chronic (5) Diabetes type 2, controlled Code(s): E11.9 - TYPE 2 DIABETES MELLITUS WITHOUT COMPLICATIONS Status: Chronic Qualifiers: Diabetes mellitus fpc insulin use: without fpc use Diabetes mellitus complication status: with kidney complications Diabetes mellitus complication detail: with chronic kidney disease Chronic kidney disease stage : stage 3 (moderate) Qualified Code(s): E11.22 - Type 2 diabetes mellitus with diabetic chronic kidney disease; N18.3 - Chronic kidney disease, stage 3 ( moderate) (6) Dyslipidemia Code(s): E78.5 - HYPERLIPIDEMIA, UNSPECIFIED Status: Chronic (7) GERD (gastroesophageal reflux disease) Code(s): K21.9 - GASTRO-ESOPHAGEAL REFLUX DISEASE WITHOUT ESOPHAGITIS Status: Chronic (8) Hypertension Code(s): I10 - ESSENTIAL (PRIMARY) HYPERTENSION Status: Chronic Qualifiers: (9) Obesity (BMI 30-39.9) Code(s): E66.9 - OBESITY, UNSPECIFIED Status: Chronic (10) Pulmonary HTN Code(s): I27.20 - PULMONARY HYPERTENSION, UNSPECIFIED Status: Chronic (11) Restless leg syndrome Status: Chronic (12) Sarcoidosis Code(s): D86.9 - SARCOIDOSIS, UNSPECIFIED Status: Chronic (13) Elevated troponin level Code(s): R79.89 - OTHER SPECIFIED ABNORMAL FINDINGS OF BLOOD CHEMISTRY Status : Chronic (14) Anemia, normocytic normochromic Code(s): D64.9 - ANEMIA, UNSPECIFIED Status: Chronic - Plan old records reviewed/req wean off oxygen as tolerated continue empiric rocephin and azithromycin, I doubt pt has any pneumonia pulmonary has been consulted await covid-19 test result will add lasix 20 mg IV BID Potassium replaced, continue solumedrol add insulin as per sliding scale medication reviewed, supportive care, symptomatic treatment will monitor today in hospital will reevaluate tomorrow will repeat labs tomorrow 09/12/19 plan for discharge today, PO lasix see discharge summery medication reviewed continue symptomatic care supportive care hospital course reviewed
[2019-09-12 11:36] VITALS: BP 115/56; TEMP 97.5
--- NOTE | 2019-09-13 11:56 | EKG ---
Test Reason : Blood Pressure : / mmHG Vent. Rate : 087 BPM Atrial Rate : 087 BPM P-R Int : 184 ms QRS Dur : 100 ms QT Int : 448 ms P-R-T Axes : 073 -57 069 degrees QTc Int : 539 ms Sinus rhythm with Premature atrial complexes with junctional escape complexes Left anterior fascicular block Lateral infarct , age undetermined Prolonged QT Abnormal ECG Confirmed by CHRISTIANA CAMEJO ([id number]), news editor ANAHI NEVILLE ([id number]) on 09/13/2019 11:55:31 AM Referred By: Confirmed By:CHRISTIANA CAMEJO
== END 2019-09-12 11:58 | disposition home or self-care (01) ==
LOC: ERS 22:56 → 2NO 09-11 02:40 → 2SW 09-11 05:54
PROVIDERS: ADMIT Internal Medicine; ATTEND Internal Medicine
DX: I13.0 Hypertensive heart and chronic kidney disease with heart failure and stage 1 through stage 4 chronic kidney disease, or unspecified chronic kidney disease (principal); E11.22 Type 2 diabetes mellitus with diabetic chronic kidney disease; N18.3 Chronic kidney disease, stage 3 (moderate); I50.33 Acute on chronic diastolic (congestive) heart failure; D63.1 Anemia in chronic kidney disease; J96.21 Acute and chronic respiratory failure with hypoxia; E83.42 Hypomagnesemia; D86.9 Sarcoidosis, unspecified; I27.20 Pulmonary hypertension, unspecified; K21.9 Gastro-esophageal reflux disease without esophagitis; E78.5 Hyperlipidemia, unspecified; F41.9 Anxiety disorder, unspecified; F32.9 Major depressive disorder, single episode, unspecified; J44.9 Chronic obstructive pulmonary disease, unspecified; M10.9 Gout, unspecified; G25.81 Restless legs syndrome; R79.89 Other specified abnormal findings of blood chemistry; R50.9 Fever, unspecified; E66.9 Obesity, unspecified; Z68.39 Body mass index [BMI] 39.0-39.9, adult; Z20.828 Contact with and (suspected) exposure to other viral communicable diseases; Z86.718 Personal history of other venous thrombosis and embolism; Z79.02 Long term (current) use of antithrombotics/antiplatelets; Z79.52 Long term (current) use of systemic steroids; Z79.82 Long term (current) use of aspirin; Z79.84 Long term (current) use of oral hypoglycemic drugs; Z79.899 Other long term (current) drug therapy; Z88.1 Allergy status to other antibiotic agents; Z88.2 Allergy status to sulfonamides
CPT/HCPCS: 36600; 71045; 80048; 80053; 82553; 82962 ×2; 83735; 83880; 84484 ×3; 85025 ×2; 93005; 93306; 94760; 96374; 96375; 96376 ×2; 99285; G0378 ×3; U0003; 36415; 36416; 87635; J0456; J0696; J1940; J2405; J2920; J3490; J7050

== ENCOUNTER 2019-12-06 00:08 | Inpatient (IN) | payer MEDICARE, BC, OTHER ==
[2019-12-06] MEDS ORDERED: Ibuprofen 200 MG TAB ONE (00:21)
[2019-12-06 01:06] LABS: Mean Corpuscular HGB CONC 31.6 g/dL (32.0-36.0); Mean Corpuscular Hemoglobin 29.1 pg (27.0-31.0); Mean Corpuscular Volume 92.1 fL (78.0-98.0); Mean Platelet Volume 8.2 fL (7.4-10.4); Platelet Count 527 thou/uL (130-400); RBC Distribution Width 19.2 % (11.5-14.5); Red Blood Cell (RBC) Count 3.07 mill/uL (4.20-5.40)
[2019-12-06 01:20] LABS: Bilirubin Negative (Negative); Blood, Urine Negative (Negative); Clarity Clear (Clear); Glucose, Urine (Dipstick) Normal (Negative); Ketone, Urine Negative (Negative); Leukocyte Negative Leu/uL (Negative); Nitrite Negative (Negative); Protein, Urine (Dipstick) Negative (Neg-Trace); Specific Gravity, Urine 1.005 (1.002-1.036); Urobilinogen Normal mg/dL (Less than 2); pH, Urine 6.5 (5.0-9.0)
[2019-12-06 01:23] LABS: ALT (SGPT) 7 U/L (8-55); AST (SGOT) 22 U/L (5-34); Albumin 2.9 g/dL (3.4-4.8); Alkaline Phosphatase 119 U/L (40-110); Anion Gap 14 mmol/L (10-20); BUN (Urea Nitrogen) 11 mg/dL (9.8-20.1); Bilirubin, Total 0.3 mg/dL (0.2-1.2); CK (CPK) 38 U/L (29-168); Calc. Creatinine Clearance 0 mL/min (70-130); Calcium 7.9 mg/dL (7.8-10.44); Carbon Dioxide 23 mmol/L (23-31); Chloride 106 mmol/L (98-107); Estimated GFR-MDRD 40; Globulin 3.1 g/dL (2.4-3.5); Glucose 94 mg/dL (83-110); Lipase 38 U/L (8-78); Potassium 3.5 mmol/L (3.5-5.1); Sodium 139 mmol/L (136-145)
[2019-12-06 01:26] LABS: Anisocytosis SLIGHT = 6-15 cells (100X) (0-5/hpf); Band 8 % (5-11); Eosinophils 1 % (0-10); Large Platelets SLIGHT; Lymphocytes 39 % (21-51); MDiff Complete? YES; Monocytes 5 % (0-10); Myelocyte 1 % (0-0); Neutrophil 46 % (42-75); Platelet Morphology Comment Appears Increased
[2019-12-06 01:45] LABS: CKMB 0.5 ng/mL (0-6.6)
[2019-12-06] MEDS ORDERED: Dexamethasone 10 MG/ML VIAL ONE (03:06)
[2019-12-06] MEDS ORDERED: Aspirin Chewable 81 MG TAB ONE (03:06)
[2019-12-06] MEDS ORDERED: Enoxaparin Sodium 80 MG/0.8 ML SYRINGE ONE (03:06)
[2019-12-06 03:32] LABS: SARS-CoV-2 NAA Rapid Test Not Detected (NotDetected)
[2019-12-06] MEDS ORDERED: Vancomycin 1 GM/200 ML BAG ONE (03:59)
[2019-12-06 05:38] LABS: Troponin I 0.051 ng/mL (< 0.028)
[2019-12-06 06:03] VITALS: BMI 34.4
--- NOTE | 2019-12-06 07:52 | RAD ---
Exam: Chest one view HISTORY:Cough. Fever. Shortness of breath. Comparison: 09/30/2019 FINDINGS: Cardiac silhouette:Upper normal cardiac silhouette. Aorta: Slightly elongated aorta Pulmonary vessels: Normal Costophrenic angles: Clear LUNGS: Chronic lung parenchymal changes are favored. Superimposed interstitial infiltrate cannot be e xcluded. Pneumothorax: None Osseous abnormalities: Bilateral humeral arthroplasty is noted. IMPRESSION: 1. Presumed chronic lung parenchymal changes. Superimposed interstitial infiltrate cannot be excluded .
--- NOTE | 2019-12-06 08:24 | CT ---
PRELIMINARY REPORT/[facility]/EMERGENCY AFTER HOURS PROCEDURE EXAM: CTA Chest with Intravenous Contrast CLINICAL HISTORY: 79 y/o F with sob, cough and fever over the past few days. Initially went to [facility] and give n Cefepime, 1/2 inch NTG paste and 20mg Lasix and sent to [facility] for r/o covid as she was requiring 2L NC. TECHNIQUE: Axial CTA images of the chest with intravenous contrast. Three-dimensional MIP/volume rendered reform ations were performed. CONTRAST: With; 60ML ISOVUE 370 COMPARISON: None provided. FINDINGS: PULMONARY ARTERIES There is no intraluminal filling defect suspicious for PE. Enlargement of the main pulmonary artery measuring 4.7 cm in transverse diameter. AORTA No thoracic aortic aneurysm or dissection. LUNGS The lungs are clear. No pulmonary mass. No focal airspace consolidation. Bibasilar predominant inter stitial opacities. PLEURAL SPACES No pleural effusion. No pneumothorax. HEART AND MEDIASTINUM Cardiomegaly. No significant pericardial effusion. Mitral annular and coronary artery atherosclerot ic disease. LYMPH NODES No lymphadenopathy. BONES No focal osseous abnormality or acute fracture. Bilateral shoulder arthroplasty hardware. T5 and T1 0 kyphoplasty changes. Cement material within the left aspect of the T5 spinal canal. Degenerative changes of the spine. CHEST WALL AND UPPER ABDOMEN Small hiatal hernia. Diffuse decreased parenchymal attenuation of the liver. Splenectomy. Images t hrough the upper abdomen are otherwise unremarkable. The chest wall is unremarkable. IMPRESSION: 1. No acute pulmonary thromboembolism. 2. Enlargement of the main pulmonary artery measuring 4.7 cm which is suggestive of pulmonary hypert ension. Bibasilar interstitial opacities without focal consolidation. 3. Cardiomegaly with coronary artery atherosclerotic disease to include the mitral annulus. 4. Hepatomegaly. 5. Small hiatal hernia. ELECTRONICALLY SIGNED BY: Sadi Page DO Dec 06, 2019 2:17:09 AM CDT This report is intended for review by the ordering physician only, in accordance of law. If you recei ve this report in error, please call [facility] at [phone]. FINAL REPORT Exam: CT angiogram of the chest HISTORY: Cough. Fever. Shortness of breath. COMPARISON: 06/30/2018. Noncontrast chest CT 12/05/2019. TECHNIQUE: CT angiogram of the chest is performed in the axial plane. Three-dimensional reformatted i mages are submitted for interpretation FINDINGS: Mediastinum: Enlarged paratracheal and AP window lymph nodes. [employer] AP window lymph node conchita sures 1.8 x 1.7 cm. HEART: Normal size. No significant pericardial fluid. Aorta: No aneurysm or dissection Upper solid abdominal viscera: No abnormality enhancement. Trachea and central bronchi: Patent Pleural spaces: No effusion Lung parenchyma: Scattered interstitial and groundglass opacities are nonspecific. Chronic changes ar e favored. There does not appear to be a distribution of peripheral groundglass opacity to suggest COVID pneumonia. Pneumothorax: None Osseous structures: There is a remote vertebroplasty at the T11 level. Pulmonary arteries:Pulmonary arteries are prominent. Correlate for pulmonary hypertension. No filling defect to the level of the segmental arteries to suggest thromboembolism. IMPRESSION: 1. Report is in agreement with initial report by [facility]. 2. No evidence of pulmonary artery embolism to the level of segmental arteries 3. Enlarged pulmonary arterial system, consistent with pulmonary hypertension. 4. Stable lung parenchymal changes. Transcribed Date/Time: 12/06/2019 10:07 AM
[2019-12-06] MEDS ORDERED: Non-Formulary Item 1 EACH (Oxybutynin Chloride [Oxybutynin Chloride Er] 10 MG) PO SCH (09:00)
[2019-12-06] MEDS ORDERED: PRAMIPEXOLE DI HCL 0.75 MG PO SCH (09:00)
[2019-12-06] MEDS ORDERED: Amlodipine 10 MG TAB PO SCH (09:00)
--- NOTE | 2019-12-06 09:19 | PDOC.HHP ---
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 Initial work-up in the ED including elevated d-dimer, she subsequently underwent CTA was negative for PE. Her BNP was noted elevated, CXR showed increase vascularity. Hospitalist was asked to admit the patient for further diuresis. Patient report that she has been short of breath, and reported to ambulate within short distance. Patient did not weigh herself daily, however she reported she had been gaining weight and also associated with lower extremity swelling. She denies any fevers no nausea vomiting or recent travel history or COVID exposure. Hospitalist ROS - Review of Systems Other: Complete review of systems have been assessed and discussed with the patient. Negative and positive pertinent symptoms noted in the HPI; ALL other systems are reviewed and negative. Hospitalist History - Past Medical History Cardiac: reports: CAD, CHF, HTN, Hyperlipidemia Pulmonary: reports: deep vein thrombosis, pulmonary embolism - Past Surgical History Past Surgical History: reports: Cholecystectomy, Hysterectomy - Family History Family History: reports: cardiac disorder, diabetes mellitus - Social History Smoking Status: Never smoker Alcohol: reports: None Drugs: reports: none Hospitalist Results - Labs Result Diagrams: 12/06/19 00:44 12/06/19 00:44 Lab results: WBC 9.0 thou/uL (4.8-10.8) 12/06/19 00:44 Hgb 9.0 g/dL (12.0-16.0) L 12/06/19 00:44 Hct 28.3 % (36.0-47.0) L 12/06/19 00:44 MCV 92.1 fL (78.0-98.0) 12/06/19 00:44 Plt Count 527 thou/uL (130-400) H 12/06/19 00:44 Band Neuts % (Manual) 8 % (5-11) 12/06/19 00:44 Sodium 139 mmol/L (136-145) 12/06/19 00:44 Potassium 3.5 mmol/L (3.5-5.1) 12/06/19 00:44 Chloride 106 mmol/L (98-107) 12/06/19 00:44 Carbon Dioxide 23 mmol/L (23-31) 12/06/19 00:44 BUN 11 mg/dL (9.8-20.1) 12/06/19 00:44 Creatinine 1.30 mg/dL (0.6-1.1) H 12/06/19 00:44 Glucose 94 mg/dL (83-110) 12/06/19 00:44 Calcium 7.9 mg/dL (7.8-10.44) 12/06/19 00:44 Total Bilirubin 0.3 mg/dL (0.2-1.2) 12/06/19 00:44 AST 22 U/L (5-34) 12/06/19 00:44 ALT 7 U/L (8-55) L 12/06/19 00:44 Alkaline Phosphatase 119 U/L (40-110) H 12/06/19 00:44 Creatine Kinase 38 U/L (29-168) 12/06/19 00:44 CK-MB (CK-2) 0.5 ng/mL (0-6.6) 12/06/19 00:44 Troponin I 0.040 ng/mL (< 0.028) H 12/06/19 06:35 B-Natriuretic Peptide 327.3 pg/mL (0-100) H 12/06/19 00:44 Serum Total Protein 6.0 g/dL (6.0-8.3) 12/06/19 00:44 Albumin 2.9 g/dL (3.4-4.8) L 12/06/19 00:44 Lipase 38 U/L (8-78) 12/06/19 00:44 Urine Ketones Negative mg/dL (Negative) 12/06/19 01:08 Urine Blood Negative (Negative) 12/06/19 01:08 Urine Nitrite Negative (Negative) 12/06/19 01:08 Ur Leukocyte Esterase Negative Sravanthi/uL (Negative) 12/06/19 01:08 Hospitalist H&P A/P - Plan Plan: PHYSICAL EXAM: General Appearance: Alert, oriented, resting comfortably, no apparent distress, well developed/nourished. HEENT: Normocephalic/atraumatic, moist mucous membrane, normal ENT inspection, normal tones. PERRLA, no scleral icterus, normal conjunctiva Neck: Supple, normal inspection, no JVD Respiratory: Lungs are clear bilaterally, normal breath sounds, no accessory muscle use Cardiovascular: Regular rate, regular rhythm, no murmur, positive for rhonichi/ rale Abdomen: Soft, nontender, nondistended, normal bowel sounds, no organomegaly, no guarding no rebound Back: Normal inspection, no CVA tenderness Extremities: No clubbing, no cyanosis, 1+ edema bilaterally Psych/Mental Status: Normal affect, speech, non-pressured, AAO x 3 Neurologic: AAO x 3; Cranial nerves II - XII intact. CN II-XII are intact. Skin: Warm/Dry, Normal Color, no rashes ASSESSMENT/plan: #Acute on chronic diastolic heart failure last echo was done 2019 showed preserved EF of 50-55% #HTN, essential #Dyslipidemia #Hx of sarcoidosis #Hx DVT/PE with s/p IVC filter placement - CTA on this admission was negative for PE #DM 2 #Obesity with BMI of 34 12/06/19 Pt admit to tele for further IV diuresis. Cont serial cardiac enzymes. Resume home meds including dual antiplt therapy, statin and BB. Will not rpt Echo at this time PT eval and treat. Follow renal function and rpt lytes if needed. DVT ppx: SCD
[2019-12-06] MEDS: Pramipexole Di-HCl 0.25 MG TAB PO SCH ×2 (09:28→20:15)
[2019-12-06] MEDS: Aspirin 81 mg Enteric Coated Tablet PO SCH (09:29)
[2019-12-06] MEDS: Clopidogrel Bisulfate 75 MG TAB PO SCH (09:29)
[2019-12-06] MEDS: Oxybutynin 5 MG TAB PO SCH (09:29)
[2019-12-06] MEDS ORDERED: Furosemide 40 MG/4 ML VIAL SLOW IVP SCH (09:30)
[2019-12-06] MEDS ORDERED: Potassium Chloride 20 MEQ TAB PO SCH (09:30)
[2019-12-06] MEDS: Amlodipine 5 MG TAB PO SCH (09:30)
[2019-12-06] MEDS: Allopurinol 100 MG TAB PO SCH (09:30)
[2019-12-06] MEDS: Metoprolol Tartrate 25 MG TAB PO SCH ×2 (09:30→20:15)
[2019-12-06] MEDS: Acetaminophen 325 MG TAB PO PRN ×3 (09:38→20:15)
[2019-12-06] MEDS ORDERED: Iopamidol-370 76% 500 ML 1 ML ONE (10:47)
[2019-12-06] MEDS ORDERED: Dextrose 5% in Water 1,000 ML IV PRN (11:14)
[2019-12-06] MEDS ORDERED: Dextrose 50% Abboject 50 ML SYRINGE SLOW IVP PRN (11:14)
[2019-12-06] MEDS: HumaLOG 300 UNITS/3 ML VIAL SC PRN ×2 (11:34→17:15)
[2019-12-06] MEDS: traMADol HCl 50 MG TAB PO SCH ×2 (13:38→21:05)
[2019-12-06] MEDS: Furosemide 40 MG/4 ML VIAL SLOW IVP SCH (13:39)
[2019-12-06] MEDS: Doxepin HCl 25 MG CAP PO SCH (20:15)
[2019-12-06] MEDS ORDERED: Doxepin HCl 10 MG CAP PO SCH (21:00)
[2019-12-07 04:14] LABS: #Monocytes 0.3 thou/uL (0.11-0.59); #Neutrophils 2.2 thou/uL (1.40-6.50); %Basophils 0.4 % (0.0-1.0); %Eosinophils 0.3 % (0.0-10.0); %Lymphocytes 43.2 % (21.0-51.0); %Monocytes 7.2 % (0.0-10.0); %Neutrophils 48.9 % (42.0-75.0); Hemoglobin 9.5 g/dL (12.0-16.0); Mean Corpuscular HGB CONC 31.7 g/dL (32.0-36.0); Mean Corpuscular Hemoglobin 29.6 pg (27.0-31.0); Mean Corpuscular Volume 93.4 fL (78.0-98.0); Mean Platelet Volume 8.3 fL (7.4-10.4); Platelet Count 546 thou/uL (130-400); RBC Distribution Width 19.4 % (11.5-14.5); White Blood Cell (WBC) Count 4.6 thou/uL (4.8-10.8)
[2019-12-07 04:33] LABS: ALT (SGPT) Less than 7 U/L (8-55); AST (SGOT) 19 U/L (5-34); Albumin 3.1 g/dL (3.4-4.8); Alkaline Phosphatase 122 U/L (40-110); Anion Gap 16 mmol/L (10-20); BUN (Urea Nitrogen) 18 mg/dL (9.8-20.1); Bilirubin, Total 0.2 mg/dL (0.2-1.2); Calc. Creatinine Clearance 41 mL/min (70-130); Calcium 8.1 mg/dL (7.8-10.44); Carbon Dioxide 25 mmol/L (23-31); Chloride 102 mmol/L (98-107); Estimated GFR-MDRD 33; Globulin 3.3 g/dL (2.4-3.5); Glucose 155 mg/dL (83-110); Magnesium 1.6 mg/dL (1.6-2.6); Potassium 3.6 mmol/L (3.5-5.1); Protein, Total 6.4 g/dL (6.0-8.3); Sodium 139 mmol/L (136-145)
[2019-12-07] MEDS: Furosemide 40 MG/4 ML VIAL SLOW IVP SCH (05:59)
[2019-12-07] MEDS: traMADol HCl 50 MG TAB PO SCH ×3 (05:59→21:48)
[2019-12-07] MEDS: HumaLOG 300 UNITS/3 ML VIAL SC PRN (06:32)
[2019-12-07] MEDS: Pramipexole Di-HCl 0.25 MG TAB PO SCH ×2 (09:10→21:48)
[2019-12-07] MEDS: Oxybutynin 5 MG TAB PO SCH (09:10)
[2019-12-07] MEDS: Metoprolol Tartrate 25 MG TAB PO SCH ×2 (09:11→21:48)
[2019-12-07] MEDS: Allopurinol 100 MG TAB PO SCH (09:11)
[2019-12-07] MEDS: Amlodipine 5 MG TAB PO SCH (09:12)
[2019-12-07] MEDS: Clopidogrel Bisulfate 75 MG TAB PO SCH (09:12)
[2019-12-07] MEDS: Acetaminophen 325 MG TAB PO PRN (09:13)
[2019-12-07] MEDS: Aspirin 81 mg Enteric Coated Tablet PO SCH (09:13)
[2019-12-07] MEDS: Enoxaparin Sodium 40 MG/0.4 ML SYRINGE SC SCH (09:13)
[2019-12-07] MEDS ORDERED: Furosemide 20 MG TAB PO SCH (14:00)
--- NOTE | 2019-12-07 14:40 | PDOC.HOSPP ---
- Subjective Subjective: Patient was seen examined at bedside. Patient report that her breathing is doing much better. She had a net negative of 1 L of urine output. No acute events overnight. Her creatinine went up slightly with diuresis. Electrolytes stable. Her blood culture appeared to be contaminant, with staph coag negative - Objective Vital Signs & Weight: Vital Signs (12 hours) Temp Pulse Resp BP BP Pulse Ox 12/07/19 11:48 97.3 F L 55 L 18 117/71 97 12/07/19 09:12 53 L 132/60 12/07/19 07:18 97.5 F L 53 L 15 132/60 94 L 12/07/19 04:00 97.6 F 56 L 13 137/73 98 Weight Weight 177 lb 7.554 oz I&O: 12/06/19 12/07/19 12/08/19 06:59 06:59 06:59 Intake Total 1300 240 Output Total 2300 Balance -1000 240 Result Diagrams: 12/07/19 03:46 12/07/19 03:46 Additional Labs: Accuchecks 12/07/19 12/07/19 12/06/19 11:01 05:51 20:30 POC Glucose 147 H 172 H 182 H 12/06/19 16:43 POC Glucose 191 H Hospitalist ROS - Medication Medications: Active Medications Generic Name Dose Route Start Last Admin Trade Name Freq PRN Reason Stop Dose Admin Acetaminophen 650 mg 12/06/19 09:22 12/07/19 09:13 Tylenol PO 650 mg Q6H PRN Administration Mild-Moderate Pain (1-5) Allopurinol 200 mg 12/06/19 09:00 12/07/19 09:11 Zyloprim PO 200 mg DAILY DENY Administration Amlodipine Besylate 5 mg 12/06/19 09:00 12/07/19 09:12 Norvasc PO 5 mg DAILY DENY Administration Aspirin 81 mg 12/06/19 09:00 12/07/19 09:13 Ecotrin PO 81 mg DAILY DENY Administration Clopidogrel Bisulfate 75 mg 12/06/19 09:00 12/07/19 09:12 Plavix PO 75 mg DAILY DENY Administration Doxepin HCl 25 mg 12/06/19 21:00 12/06/19 20:15 Sinequan PO 25 mg HS DENY Administration Enoxaparin Sodium 40 mg 12/07/19 09:00 12/07/19 09:13 Lovenox SC 40 mg 0900 DENY Administration Furosemide 40 mg 12/07/19 14:00 12/07/19 14:19 Lasix PO 40 mg 0900,1400 DENY Administration Insulin Human Lispro 0 units 12/06/19 11:14 12/07/19 06:32 Humalog SC 2 unit .MODERATE SLIDING SC PRN Administration Moderate Correctional Scale Metoprolol Tartrate 25 mg 12/06/19 09:00 12/07/19 09:11 Lopressor PO 25 mg BID DENY Administration Oxybutynin Chloride 10 mg 12/06/19 09:00 12/07/19 09:10 Ditropan PO 10 mg DAILY DENY Administration Pantoprazole Sodium 40 mg 12/06/19 09:00 12/07/19 09:11 Protonix PO 40 mg DAILY DENY Administration Pramipexole Dihydrochloride 0.75 mg 12/06/19 09:00 12/07/19 09:10 Mirapex PO 0.75 mg BID DENY Administration Sodium Chloride 10 ml 12/06/19 21:00 12/07/19 09:15 Flush - Normal Saline IVF 10 ml Q12HR DENY Administration Tramadol HCl 50 mg 12/06/19 14:00 12/07/19 14:19 Ultram PO 50 mg Q8HR DENY Administration Hosp A/P - Plan PHYSICAL EXAM: General Appearance: Alert, oriented, resting comfortably, no apparent distress, well developed/nourished. HEENT: Normocephalic/atraumatic, moist mucous membrane, normal ENT inspection, normal tones. PERRLA, no scleral icterus, normal conjunctiva Neck: Supple, normal inspection, no JVD Respiratory: Lungs are clear bilaterally, normal breath sounds, no accessory muscle use Cardiovascular: Regular rate, regular rhythm, no murmur, positive for rhonichi/ rale Abdomen: Soft, nontender, nondistended, normal bowel sounds, no organomegaly, no guarding no rebound Back: Normal inspection, no CVA tenderness Extremities: No clubbing, no cyanosis, 1+ edema bilaterally Psych/Mental Status: Normal affect, speech, non-pressured, AAO x 3 Neurologic: AAO x 3; Cranial nerves II - XII intact. CN II-XII are intact. Skin: Warm/Dry, Normal Color, no rashes ASSESSMENT/plan: #Acute on chronic diastolic heart failure last echo was done 2019 showed preserved EF of 50-55% #HTN, essential #Dyslipidemia #Hx of sarcoidosis #Hx DVT/PE with s/p IVC filter placement - CTA on this admission was negative for PE #DM 2 #Obesity with BMI of 34 #Positive blood culture - staph coag neg, contaminant. 12/07/19 Pt diuresed well. Neg neg 1L. Cr went up slight. Dyspnea much improved. Will transition her to PO Lasix this PM. If cont to improve. Possible d/c home tomorrow. Cont PT 12/06/19 Pt admit to tele for further IV diuresis. Cont serial cardiac enzymes. Resume home meds including dual antiplt therapy, statin and BB. Will not rpt Echo at this time PT eval and treat. Follow renal function and rpt lytes if needed. DVT ppx: SCD
[2019-12-07] MEDS: Doxepin HCl 25 MG CAP PO SCH (21:48)
[2019-12-07] MEDS: Lidocaine Patch Removal 1 EACH TOP SCH (22:54)
[2019-12-08] MEDS: traMADol HCl 50 MG TAB PO SCH ×3 (05:33→21:14)
[2019-12-08 06:15] LABS: Anion Gap 15 mmol/L (10-20); BUN (Urea Nitrogen) 24 mg/dL (9.8-20.1); Calc. Creatinine Clearance 33 mL/min (70-130); Calcium 8.1 mg/dL (7.8-10.44); Carbon Dioxide 30 mmol/L (23-31); Chloride 101 mmol/L (98-107); Estimated GFR-MDRD 27; Glucose 75 mg/dL (83-110); Magnesium 1.8 mg/dL (1.6-2.6); Potassium 3.9 mmol/L (3.5-5.1); Sodium 142 mmol/L (136-145)
[2019-12-08] MEDS: Clopidogrel Bisulfate 75 MG TAB PO SCH (09:24)
[2019-12-08] MEDS: Allopurinol 100 MG TAB PO SCH (09:24)
[2019-12-08] MEDS: Aspirin 81 mg Enteric Coated Tablet PO SCH (09:24)
[2019-12-08] MEDS: Metoprolol Tartrate 25 MG TAB PO SCH ×2 (09:25→21:14)
[2019-12-08] MEDS: Oxybutynin 5 MG TAB PO SCH (09:25)
[2019-12-08] MEDS: Amlodipine 5 MG TAB PO SCH (09:25)
[2019-12-08] MEDS: Enoxaparin Sodium 40 MG/0.4 ML SYRINGE SC SCH (09:26)
[2019-12-08] MEDS: Lidocaine 5% Patch TD SCH (09:27)
[2019-12-08] MEDS: Pramipexole Di-HCl 0.25 MG TAB PO SCH ×2 (10:35→21:14)
--- NOTE | 2019-12-08 13:22 | PDOC.HOSPP ---
- Subjective Subjective: c/o left shoulder pain, chronic Cr up slightly dyspnea improved no acute event overnight d/w RN - Objective Vital Signs & Weight: Vital Signs (12 hours) Temp Pulse Resp BP BP Pulse Ox 12/08/19 09:25 50 L 167/74 H 12/08/19 07:15 97.9 F 50 L 16 167/74 H 97 12/08/19 04:16 97.7 F 56 L 18 143/71 H 95 Weight Weight 178 lb 9.191 oz I&O: 12/07/19 12/08/19 12/09/19 06:59 06:59 06:59 Intake Total 1300 600 240 Output Total 2300 300 Balance -1000 300 240 Result Diagrams: 12/07/19 03:46 12/08/19 04:30 Additional Labs: Accuchecks 12/08/19 12/08/19 12/07/19 10:45 05:38 20:46 POC Glucose 107 113 H 125 H 12/07/19 16:59 POC Glucose 122 H Hospitalist ROS - Medication Medications: Active Medications Generic Name Dose Route Start Last Admin Trade Name Freq PRN Reason Stop Dose Admin Acetaminophen 650 mg 12/06/19 09:22 12/07/19 09:13 Tylenol PO 650 mg Q6H PRN Administration Mild-Moderate Pain (1-5) Allopurinol 200 mg 12/06/19 09:00 12/08/19 09:24 Zyloprim PO 200 mg DAILY DENY Administration Amlodipine Besylate 5 mg 12/06/19 09:00 12/08/19 09:25 Norvasc PO 5 mg DAILY DENY Administration Aspirin 81 mg 12/06/19 09:00 12/08/19 09:24 Ecotrin PO 81 mg DAILY DENY Administration Clopidogrel Bisulfate 75 mg 12/06/19 09:00 12/08/19 09:24 Plavix PO 75 mg DAILY DENY Administration Doxepin HCl 25 mg 12/06/19 21:00 12/07/19 21:48 Sinequan PO 25 mg HS DENY Administration Insulin Human Lispro 0 units 12/06/19 11:14 12/07/19 06:32 Humalog SC 2 unit .MODERATE SLIDING SC PRN Administration Moderate Correctional Scale Lidocaine 2 patch 12/08/19 10:00 12/08/19 09:27 Lidoderm 5% Patch TD 2 patch 1000 DENY Administration Metoprolol Tartrate 25 mg 12/06/19 09:00 12/08/19 09:25 Lopressor PO 25 mg BID DENY Administration Miscellaneous Medication 1 each 12/07/19 22:00 12/07/19 22:54 Lidocaine Patch Removal TOP Not Given 2200 DENY Oxybutynin Chloride 10 mg 12/06/19 09:00 12/08/19 09:25 Ditropan PO 10 mg DAILY DENY Administration Pantoprazole Sodium 40 mg 12/06/19 09:00 12/08/19 09:26 Protonix PO 40 mg DAILY DENY Administration Pramipexole Dihydrochloride 0.75 mg 12/06/19 09:00 12/08/19 10:35 Mirapex PO 0.75 mg BID DENY Administration Sodium Chloride 10 ml 12/06/19 21:00 12/08/19 09:39 Flush - Normal Saline IVF 10 ml Q12HR DENY Administration Tramadol HCl 50 mg 12/06/19 14:00 12/08/19 05:33 Ultram PO 50 mg Q8HR DENY Administration Hosp A/P - Plan PHYSICAL EXAM: General Appearance: Alert, oriented, resting comfortably, no apparent distress, well developed/nourished. HEENT: Normocephalic/atraumatic, moist mucous membrane, normal ENT inspection, normal tones. PERRLA, no scleral icterus, normal conjunctiva Neck: Supple, normal inspection, no JVD Respiratory: Lungs are clear bilaterally, normal breath sounds, no accessory muscle use Cardiovascular: Regular rate, regular rhythm, no murmur, positive for rhonichi/ rale Abdomen: Soft, nontender, nondistended, normal bowel sounds, no organomegaly, no guarding no rebound Back: Normal inspection, no CVA tenderness Extremities: No clubbing, no cyanosis, 1+ edema bilaterally Psych/Mental Status: Normal affect, speech, non-pressured, AAO x 3 Neurologic: AAO x 3; Cranial nerves II - XII intact. CN II-XII are intact. Skin: Warm/Dry, Normal Color, no rashes ASSESSMENT/plan: #Acute on chronic diastolic heart failure last echo was done 2019 showed preserved EF of 50-55% #HTN, essential #Dyslipidemia #Hx of sarcoidosis #Hx DVT/PE with s/p IVC filter placement - CTA on this admission was negative for PE #DM 2 #Obesity with BMI of 34 #Positive blood culture - staph coag neg, contaminant. #JOSE ALFREDO - likely d/t overdiuresis. 12/08/19 Her Cr cont to trend up. Likely d/t overdiuresis. Will hold her diuretic today. Recheck renal function tomorrow. Avoid nephrotoxic agent. Encourage PO intake, may need to give back some fluid if Cr get worsened. 12/07/19 Pt diuresed well. Neg neg 1L. Cr went up slight. Dyspnea much improved. Will transition her to PO Lasix this PM. If cont to improve. Possible d/c home tomorrow. Cont PT 12/06/19 Pt admit to tele for further IV diuresis. Cont serial cardiac enzymes. Resume home meds including dual antiplt therapy, statin and BB. Will not rpt Echo at this time PT eval and treat. Follow renal function and rpt lytes if needed. DVT ppx: SCD
[2019-12-08] MEDS: HYDROcodone/Acetaminophen 5/325 mg Tablet PO PRN (17:44)
[2019-12-08] MEDS: Doxepin HCl 25 MG CAP PO SCH (21:14)
[2019-12-08] MEDS: Lidocaine Patch Removal 1 EACH TOP SCH (21:15)
[2019-12-09] MEDS: HYDROcodone/Acetaminophen 5/325 mg Tablet PO PRN ×2 (02:14→08:12)
[2019-12-09] MEDS: traMADol HCl 50 MG TAB PO SCH ×3 (05:31→21:13)
[2019-12-09] MEDS: Enoxaparin Sodium 30 MG/0.3 ML SYRINGE SC SCH (08:11)
[2019-12-09] MEDS: Pramipexole Di-HCl 0.25 MG TAB PO SCH ×2 (08:13→21:15)
[2019-12-09] MEDS: Aspirin 81 mg Enteric Coated Tablet PO SCH (08:13)
[2019-12-09] MEDS: Metoprolol Tartrate 25 MG TAB PO SCH ×2 (08:13→21:14)
[2019-12-09] MEDS: Allopurinol 100 MG TAB PO SCH (08:14)
[2019-12-09] MEDS: Amlodipine 5 MG TAB PO SCH (08:14)
[2019-12-09] MEDS: Clopidogrel Bisulfate 75 MG TAB PO SCH (08:14)
[2019-12-09] MEDS: Oxybutynin 5 MG TAB PO SCH (08:16)
[2019-12-09 08:28] LABS: Anion Gap 14 mmol/L (10-20); BUN (Urea Nitrogen) 25 mg/dL (9.8-20.1); Calc. Creatinine Clearance 34 mL/min (70-130); Calcium 7.9 mg/dL (7.8-10.44); Carbon Dioxide 28 mmol/L (23-31); Chloride 101 mmol/L (98-107); Estimated GFR-MDRD 29; Glucose 71 mg/dL (83-110); Potassium 3.3 mmol/L (3.5-5.1); Sodium 140 mmol/L (136-145)
[2019-12-09] MEDS: Lidocaine 5% Patch TD SCH (10:44)
--- NOTE | 2019-12-09 15:17 | PDOC.HOSPP ---
- Subjective Subjective: Cr stable. no acute event overnight. Concerned about [place] today[place] No [place] come pick out hand until tomorrow. clinically stable. SOB improved. working with PTDavid Goodman on hold d/t renal function - Objective Vital Signs & Weight: Vital Signs (12 hours) Temp Pulse Pulse Pulse Resp BP BP 12/09/19 11:13 98.2 F 45 L 18 12/09/19 09:34 74 59 L 117/64 107/75 12/09/19 07:04 97.3 F L 63 20 12/09/19 04:00 98.6 F 75 14 BP Pulse Ox 12/09/19 11:13 112/57 L 97 12/09/19 09:34 12/09/19 07:04 173/77 H 92 L 12/09/19 04:00 155/74 H 97 Weight Weight 178 lb 4 oz I&O: 12/08/19 12/09/19 12/10/19 06:59 06:59 06:59 Intake Total 600 960 Output Total 300 Balance 300 960 Result Diagrams: 12/07/19 03:46 12/09/19 07:43 Additional Labs: Accuchecks 12/09/19 12/09/19 12/08/19 11:20 05:36 20:18 POC Glucose 88 84 89 12/08/19 16:59 POC Glucose 83 Hospitalist ROS - Medication Medications: Active Medications Generic Name Dose Route Start Last Admin Trade Name Freq PRN Reason Stop Dose Admin Acetaminophen 650 mg 12/06/19 09:22 12/07/19 09:13 Tylenol PO 650 mg Q6H PRN Administration Mild-Moderate Pain (1-5) Hydrocodone Bitart/Acetaminophen 1 tab 12/07/19 09:18 12/09/19 08:12 [place] 5/325 PO 1 tab Q4H PRN Administration Moderate to Severe Pain (6-10) Allopurinol 200 mg 12/06/19 09:00 12/09/19 08:14 Zyloprim PO 200 mg DAILY DENY Administration Amlodipine Besylate 5 mg 12/06/19 09:00 12/09/19 08:14 Norvasc PO 5 mg DAILY DENY Administration Aspirin 81 mg 12/06/19 09:00 12/09/19 08:13 Ecotrin PO 81 mg DAILY DENY Administration Clopidogrel Bisulfate 75 mg 12/06/19 09:00 12/09/19 08:14 Plavix PO 75 mg DAILY DENY Administration Doxepin HCl 25 mg 12/06/19 21:00 12/08/19 21:14 Sinequan PO 25 mg HS DENY Administration Enoxaparin Sodium 30 mg 12/09/19 09:00 12/09/19 08:11 Lovenox SC 30 mg 0900 DENY Administration Insulin Human Lispro 0 units 12/06/19 11:14 12/07/19 06:32 Humalog SC 2 unit .MODERATE SLIDING SC PRN Administration Moderate Correctional Scale Lidocaine 2 patch 12/08/19 10:00 12/09/19 10:44 Lidoderm 5% Patch TD 2 patch 1000 DENY Administration Metoprolol Tartrate 25 mg 12/06/19 09:00 12/09/19 08:13 Lopressor PO 25 mg BID DENY Administration Miscellaneous Medication 1 each 12/07/19 22:00 12/08/19 21:15 Lidocaine Patch Removal TOP 1 each 2200 DENY Administration Oxybutynin Chloride 10 mg 12/06/19 09:00 12/09/19 08:16 Ditropan PO 10 mg DAILY DENY Administration Pantoprazole Sodium 40 mg 12/06/19 09:00 12/09/19 08:14 Protonix PO 40 mg DAILY DENY Administration Pramipexole Dihydrochloride 0.75 mg 12/06/19 09:00 12/09/19 08:13 Mirapex PO 0.75 mg BID DENY Administration Sodium Chloride 10 ml 12/06/19 21:00 12/09/19 08:14 Flush - Normal Saline IVF 10 ml Q12HR DENY Administration Tramadol HCl 50 mg 12/06/19 14:00 12/09/19 14:43 Ultram PO 50 mg Q8HR DENY Administration Hosp A/P - Plan PHYSICAL EXAM: General Appearance: Alert, oriented, resting comfortably, no apparent distress, well developed/nourished. HEENT: Normocephalic/atraumatic, moist mucous membrane, normal ENT inspection, normal tones. PERRLA, no scleral icterus, normal conjunctiva Neck: Supple, normal inspection, no JVD Respiratory: Lungs are clear bilaterally, normal breath sounds, no accessory muscle use Cardiovascular: Regular rate, regular rhythm, no murmur, positive for rhonichi/ rale Abdomen: Soft, nontender, nondistended, normal bowel sounds, no organomegaly, no guarding no rebound Back: Normal inspection, no CVA tenderness Extremities: No clubbing, no cyanosis, 1+ edema bilaterally Psych/Mental Status: Normal affect, speech, non-pressured, AAO x 3 Neurologic: AAO x 3; Cranial nerves II - XII intact. CN II-XII are intact. Skin: Warm/Dry, Normal Color, no rashes ASSESSMENT/plan: #Acute on chronic diastolic heart failure last echo was done 2019 showed preserved EF of 50-55% #HTN, essential #Dyslipidemia #Hx of sarcoidosis #Hx DVT/PE with s/p IVC filter placement - CTA on this admission was negative for PE #DM 2 #Obesity with BMI of 34 #Positive blood culture - staph coag neg, contaminant. #JOSE ALFREDO - likely d/t overdiuresis. Cr plateau 12/09/19 JOSE ALFREDO d/t overdiuresed. Cr plateau. Cont supportive cares. Anticipated home tomorrow. Cont current mgt. 12/08/19 Her Cr cont to trend up. Likely d/t overdiuresis. Will hold her diuretic today. Recheck renal function tomorrow. Avoid nephrotoxic agent. Encourage PO intake, may need to give back some fluid if Cr get worsened. 12/07/19 Pt diuresed well. Neg neg 1L. Cr went up slight. Dyspnea much improved. Will transition her to PO Lasix this PM. If cont to improve. Possible d/c home tomorrow. Cont PT 12/06/19 Pt admit to tele for further IV diuresis. Cont serial cardiac enzymes. Resume home meds including dual antiplt therapy, statin and BB. Will not rpt Echo at this time PT eval and treat. Follow renal function and rpt lytes if needed. DVT ppx: SCD
[2019-12-09] MEDS: Doxepin HCl 25 MG CAP PO SCH (21:15)
[2019-12-09] MEDS: Lidocaine Patch Removal 1 EACH TOP SCH (21:25)
[2019-12-10 04:28] LABS: Anion Gap 14 mmol/L (10-20); BUN (Urea Nitrogen) 20 mg/dL (9.8-20.1); Calc. Creatinine Clearance 43 mL/min (70-130); Calcium 8.1 mg/dL (7.8-10.44); Carbon Dioxide 26 mmol/L (23-31); Chloride 103 mmol/L (98-107); Estimated GFR-MDRD 37; Glucose 81 mg/dL (83-110); Potassium 3.3 mmol/L (3.5-5.1); Sodium 140 mmol/L (136-145)
[2019-12-10] MEDS: traMADol HCl 50 MG TAB PO SCH ×2 (07:13→14:49)
[2019-12-10] MEDS ORDERED: Potassium Chloride 20 MEQ TAB PO SCH (07:30)
[2019-12-10] MEDS: Amlodipine 5 MG TAB PO SCH (08:53)
[2019-12-10] MEDS: Aspirin 81 mg Enteric Coated Tablet PO SCH (08:53)
[2019-12-10] MEDS: Metoprolol Tartrate 25 MG TAB PO SCH (08:53)
[2019-12-10] MEDS: Pramipexole Di-HCl 0.25 MG TAB PO SCH (08:53)
[2019-12-10] MEDS: Allopurinol 100 MG TAB PO SCH (08:53)
[2019-12-10] MEDS: Clopidogrel Bisulfate 75 MG TAB PO SCH (08:53)
[2019-12-10] MEDS: Oxybutynin 5 MG TAB PO SCH (08:54)
[2019-12-10] MEDS: Enoxaparin Sodium 30 MG/0.3 ML SYRINGE SC SCH (08:54)
[2019-12-10] MEDS: Lidocaine 5% Patch TD SCH (08:55)
[2019-12-10 11:30] VITALS: BP 159/70; TEMP 98.5
[2019-12-10] MEDS: Acetaminophen 325 MG TAB PO PRN (12:23)
--- NOTE | 2019-12-12 22:13 | PQF ---
Dear : Alli Martino Date 12/12/19 Please exercise your independent, professional judgment in responding to the clarification form. Clinical indicators are provided on the bottom of this form for your review Please check appropriate box(es): [ X ] Type II ME due to CHF exacerbation [ ] Demand ischemia w/o ME [ ] Insignificant laboratory findings [ ] Other diagnosis please specify [ ] Unable to determine Physician Signature: Date/Time: For continuity of documentation, please document condition throughout progress notes and discharge summary. Thank You. To be completed by CDI/Coding staff for physician review: Present Clinical Indicators - Signs / Symptoms / Labs Results and Location in Medical Record [ x ] Troponin: 0.042H, 0.051H, 0.040H Laboratory 12/05 [ x ] EKG: Normal sinus rhythm, left anterior fascicular blocked, proloned QT at 501, pulse 89, no STEMI ED Provider pg.3 [ x ] Chest pain, unspecified troponin ED Provider pg.3 [ x ] SOB/ Chest discomfort H and P pg.1 [ x ] Enlargement of the main pulmonary artery suggestive of pulmonary hypertension Chest/Thorax CTA pg.2 [ x ] Cardiomegaly with CAD Chest/Thorax CTA pg.2 Present Risk Factors Results and Location in Medical Record [ x ] CKD3 H and P pg.1 [ x ] 77 years old H and P pg.1 [ x ] Diastolic CHF H and P pg.1 [ x ] HTN H and P pg.1 [ x ] CAD H and P pg.1 [ x ] Hyperlipidemia H and P pg.1 [ x ] Hx of DVT and PE H and P pg.1 [ x ] Obesity H and P pg.3 Present Treatments Results and Location in Medical Record [ x ] EKG ED Provider pg.3 [ x ] Chest X ray 12/05 [ x ] IV Lasix 40mg MAR [ x ] Chest/Thorax CTA 12/05 [ x ] Aspirin 8 mg PO MAR [ x ] IV Fluids MAR CDS/Ux Architect Signature: George Batres Phone #: ext [phone] Date 12/12/19 This is a permanent part of the Medical Record [facility]
== END 2019-12-10 15:20 | disposition home health service (06) | DRG 280 ==
LOC: ERS 00:08 → 2NO 05:51
PROVIDERS: ADMIT Internal Medicine; ATTEND Internal Medicine
DX: I13.0 Hypertensive heart and chronic kidney disease with heart failure and stage 1 through stage 4 chronic kidney disease, or unspecified chronic kidney disease (principal); I50.33 Acute on chronic diastolic (congestive) heart failure; I21.A1 Myocardial infarction type 2; N17.9 Acute kidney failure, unspecified; Z20.828 Contact with and (suspected) exposure to other viral communicable diseases; K21.9 Gastro-esophageal reflux disease without esophagitis; E78.00 Pure hypercholesterolemia, unspecified; E78.5 Hyperlipidemia, unspecified; N18.3 Chronic kidney disease, stage 3 (moderate); E11.22 Type 2 diabetes mellitus with diabetic chronic kidney disease; E11.51 Type 2 diabetes mellitus with diabetic peripheral angiopathy without gangrene; E66.9 Obesity, unspecified; Z86.718 Personal history of other venous thrombosis and embolism; Z88.1 Allergy status to other antibiotic agents; Z88.2 Allergy status to sulfonamides; Z79.899 Other long term (current) drug therapy; Z79.01 Long term (current) use of anticoagulants; Z68.33 Body mass index [BMI] 33.0-33.9, adult; Z79.84 Long term (current) use of oral hypoglycemic drugs
CPT/HCPCS: 36415; 36416; 71045; 71275; 80048; 80053; 81003; 82550; 82553; 83690; 83735; 83880; 84484; 85025; 85379; 93005; 96365; 96372; 96375; J1100; J1650; J1940; J3370; Q9967; U0002